=== PATIENT | female | born 1945 | race Caucasian/White ===

== ENCOUNTER 2019-08-21 13:22 | Outpatient (CLI) | payer MEDICARE, SELFPAY ==
--- NOTE | 2019-08-21 13:30 | US_ITS ---
WS: [id number] RENAL ULTRASOUND HISTORY: HEMATURIA COMPARISON: None available. TECHNIQUE: 2-D and color Doppler imaging of the kidney submitted. Right kidney: 9.1 cm x 4.4 cm x 3.6 cm. Normal echogenicity with no hydronephrosis or mass. Left kidney: 9.1 cm x 3.8 cm x 3.4 cm. Normal size and echogenicity. There is a hypoechoic soft tissue mass measuring 2.0 x 2.0 x 2.0 cm exo phytic and inseparable from the upper pole of the LEFT kidney. No significant increased vascularity. Aorta: Normal. Urinary Bladder: Normally distended bladder. Diffuse wall thickening is due to underdistention. US/US renal BI* [id number] IMPRESSION: 1. Exophytic solid mass inseparable from upper pole LEFT kidney measures 2.0 c m. Recommend follow-up renal mass CT protocol for further evaluation. 2. No hydronephrosis.
== END 2019-08-21 13:23 | disposition home or self-care (01) ==
LOC: RAD 13:28
PROVIDERS: PCP Nurse Practitioner Family; Visit Provider Family Medicine
DX: R31.9 Hematuria, unspecified (principal); D64.9 Anemia, unspecified; N28.89 Other specified disorders of kidney and ureter
CPT/HCPCS: 76770

== ENCOUNTER 2019-09-24 11:24 | Outpatient (CLI) | payer MEDICARE, SELFPAY ==
--- NOTE | 2019-09-24 | CT_ITS ---
WS: [id number] CT scan of the abdomen and pelvis with Oral and with and without IV contrast. Additional two-dimensio nal coronal and sagittal reconstruction was performed. 09/24/2019 Clinical Data: RENAL MASS, HEMATURIA Comparison: Renal ultrasound, 08/21/2019. DLP: 2483.[address] scans at [facility] use at least one of these dose optimization techniques: automat ed exposure control; mA and/or kV adjustment per patient size (includes targeted exams where dose is matched to clinical indication); or iterative reconstruction. Findings: The lower lungs show no nodules, masses or effusions. The liver, gallbladder, adrenal glands and pancreas are normal. There is a splenule which is adjacent to the superior pole of the left kidney. The spleen is enlarged at 15.0 cm. The kidneys show equal bilateral contrast excretion with a small posterior cortical cyst of the right kidney. No renal masses are present. The density adjacent to the superior pole of the left kidney is a medial lobe of the spleen.. The abdominal aorta is normal in size. No appendicitis or diverticulitis is seen. Oral contrast is in the stomach, small bowel and colon, a nd there is no bowel dilatation. The bladder is unremarkable. No inguinal hernia is seen. The bones of the lower thorax, lumbar spine, pelvis, and hips are normal. CT/CT abdomen pelvis wo/w [id number] Impression: 1. Negative for left renal mass. 2. Enlarged spleen with medial lobe of the spleen superior to the left kidney. 3. Splenule which is adjacent to the lateral aspect of the left kidney.
[2019-09-24 13:40] LABS: Blood Urea Nitrogen 21 mg/dL (8-23)
[2019-09-24] MEDS: iodixanol 320 mg/mL 100mL Btl IV (13:46)
[2019-09-24] MEDS: iohexol 300 mg/mL 50 mL Btl PO (13:46)
== END 2019-09-24 11:25 | disposition home or self-care (01) ==
PROVIDERS: PCP Nurse Practitioner Family; Visit Provider Nurse Practitioner Family
DX: N28.9 Disorder of kidney and ureter, unspecified (principal); R31.9 Hematuria, unspecified; R16.1 Splenomegaly, not elsewhere classified
CPT/HCPCS: 74178; 82565; 84520; Q9967

== ENCOUNTER 2019-10-29 14:52 | Outpatient (CLI) | payer MEDICARE, SELFPAY ==
--- NOTE | 2019-10-29 15:00 | US_ITS ---
WS: [id number] TRANSABDOMINAL PELVIC AND TRANSVAGINAL PELVIC ULTRASOUND HISTORY: HYPERPLASIA endometrial COMPARISON: CT 09/24/2019. Uterus: 5.5 cm x 4.6 cm x 3.0 cm. The uterus is poorly visualized on both transabdominal and transvag inal imaging. Shadowing calcifications towards the fundus. Endometrium: Endometrium is poorly visualized. On the recent CT the endometrium is thick measuring 2. 5 cm. Neither ovary is identified. No adnexal masses or fluid. US/US pelvic with transvaginal IMPRESSION: 1. Extremely limited evaluation of the uterus and adnexa. 2. Cannot identify the endometrium with certainty. 3. On a recent CT of the pelvis the endometrium was thickened. Suspect endomet rial hyperplasia, neoplasm or polyps. Recommend direct hysteroscopy.
== END 2019-10-29 14:53 | disposition home or self-care (01) ==
PROVIDERS: PCP Nurse Practitioner Family; Visit Provider Nurse Practitioner Family
DX: N85.00 Endometrial hyperplasia, unspecified (principal)
CPT/HCPCS: 76830; 76856

== ENCOUNTER 2020-05-25 13:03 | Outpatient (CLI) | payer MEDICARE, SELFPAY ==
[2020-05-25] VITALS (12 sets, daily range): BP systolic 129–169; BP diastolic 57–74; PULSE 85–106; RESP 16–20; TEMP 36.4–37.3; O2SAT 98–100; BMI 20.2
--- NOTE | 2020-05-25 13:45 | ED_ITS ---
HPI - General Adult General: Chief complaint: General Medical Stated complaint: PCP EMILY HERNANDEZ SENT FOR BLOOD TRANSFUSION Time Seen by Provider: 05/25/20 13:24 History of Present Illness: HPI narrative: 75-year-old female presents to the emergency room per her primary care PA. Patient was seen yesterday and found to have hemoglobin of 6 lab was referred back by her primary care for transfusion. Patient is splenomegaly but has not had any work-up of this in the past. She has not previously required transfusion. She has not noted any hematochezia melena hematemesis coffee-ground emesis. Onset (ago): unknown Severity: mild Relieving factors: none Exacerbating factors: none Associated symptoms: Deny chest pain, confusion, cough, diaphoresis, decreased appetite, dyspnea, fevers/chills, headache(s), malaise, nausea, rash, palpitations, seizures, short of breath, syncope, vomiting or weakness Treatments prior to arrival: none Review of Systems Const: Denies: malaise or diaphoresis ENMT: Denies: throat pain, ear or mastoid pain, nasal discharge or nasal congestion Card: Denies: chest pain, palpitations or syncope Resp: Denies: dyspnea GI: Denies: nausea : Denies: flank pain, difficulty voiding, dysuria, urinary frequency or urinary urgency Skin/Breast: Denies: rash Neuro: Denies: headache(s) or confusion PFS ED PFSH: Medical History (Updated 05/25/20 @ 15:10 by Jermaine Jacobsen DO) Anemia History of recurrent urinary tract infection with hematuria Splenomegaly Family History (Updated 05/25/20 @ 15:05 by Leandra Vázquez MD) Denies family history of Clotting disorder Bleeding disorder Social History (Updated 05/25/20 @ 15:05 by Leandra Vázquez MD) Smoking and tobacco status: never smoked Physical Exam Const: COMMON NORMALS: no acute distress GENERAL APPEARANCE: cooperative and comfortable ORIENTATION/CONSCIOUSNESS: Yes awake, Yes oriented to person, Yes oriented to place and Yes oriented to time HENMT: COMMON NORMALS: normocephalic, atraumatic and hearing grossly normal bilaterally HEAD & SCALP: normocephalic and atraumatic Neck/C-Spine: COMMON NORMALS: no JVD Resp: COMMON NORMALS: normal respiratory effort, No retractions, No use of accessory muscles and clear to auscultation bilaterally AUSCULTATION: clear to auscultation bilaterally Cardio: COMMON NORMALS: no JVD, regular rate, regular rhythm and No murmurs present (Cardio) RATE: regular rate RHYTHM: regular rhythm GI: COMMON NORMALS: Soft to palpation and No hepatosplenomegaly present A USCULTATION: Yes normoactive bowel sounds PALPATION: Yes Soft to palpation, No Tenderness to palpation present (GI), No Guarding due to palpation present (GI) and Yes No hepatosplenomegaly present Extremity: COMMON NORMALS: normal to inspection, capillary refill normal, no clubbing, cyanosis or edema, no calf tenderness and no pedal edema Neuro: SENSORIUM/ORIENTATION: Yes oriented to person, Yes oriented to place and Yes oriented to time Skin: COMMON NORMALS: no rashes or lesions noted GENERAL SKIN EXAM: no rashes or lesions noted Course Vital Signs: Vital signs: Vital Signs Temperature 98.2 F 05/25/20 13:16 Pulse Rate 106 H 05/25/20 13:16 Respiratory Rate 18 05/25/20 13:16 Blood Pressure 169/72 05/25/20 13:16 Pulse Oximetry 98 05/25/20 13:16 MDM - General Adult MDM Narrative: Medical decision making narrative: Admit outpatient in bed for 2 units to be transfused discussed with Dr. Anthony she will monitor the patient on the floor. Lab Data: Attestation: I reviewed the patient's lab results. Labs: Lab Results 05/25/20 05/25/20 Range/Units 14:21 14:21 WBC 10.0 (4.0-10.0) 10^3/ uL RBC 2.67 L (4.1-5.3) 10^6/u L Hgb 6.2 L* (11.5-15.3) g/dL Hct 21.3 L (37.0-47.0) % MCV 79.8 L (81-99) fL MCH 23.2 L (28.0-34.0) pg MCHC 29.1 L (30.0-36.0) g/dL RDW 16.9 H (12.1-15.1) % Plt Count 152 (130-400) 10^3/c mm MPV 10.2 (7.4-10.4) fL Neut % (Auto) 20.5 % Lymph % (Auto) 75.6 % [place] % (Auto) 3.5 % Eos % (Auto) 0.2 % Baso % (Auto) 0.1 % Neut # (Auto) 2.05 (1.8-7.7) 10^3/u L Lymph # (Auto) 7.6 H (0.8-4.8) 10^3/u L [place] # (Auto) 0.4 (0.2-0.9) 10^3/u L Eos # (Auto) 0.0 (0.0-0.8) 10^3/u L Baso # (Auto) 0.0 (0.0-0.1) 10^3/u L Nucleated RBC % (a uto) 0 % Nucleated RBCs # 0.0 /100WBC Sodium 138 (136-145) mmol/L Potassium 4.1 (3.5-5.1) mmol/L Chloride 103 (98-107) mmol/L Carbon Dioxide 20 L (22-29) mmol/L Anion Gap 19.1 H (5-19) BUN 26 H (8-23) mg/dL Creatinine 1.0 H (0.5-0.9) mg/dL GFR Calculation Not Reportable Glucose 86 (65-115) mg/dL Calculated Osmolal ity 290 (285-295) mOsm/k g Calcium 9.2 (8.5-10.5) mg/dL Total Bilirubin 0.8 (0.15-1.2) mg/dL AST 13 (0-32) U/L ALT 6 (0-33) U/L Alkaline Phosphata se 98 (35-105) IU/L Total Protein 7.3 (6.6-8.7) g/dL Albumin 4.5 (3.5-5.2) g/dL Globulin 2.8 (1.3-4.6) g/dL Discharge Plan Discharge Patient Disposition: Placed in Observation Clinical Impression: Microcytic anemia, Splenomegaly Condition: Stable Prescriptions: No Action ferrous sulfate 27 mg iron Tablet 27 mg PO DAILY RF: 0 Referrals: Emily Hernandez PHOTOGRAPHER SCIENTIFIC [Primary Care Provider] - Patient Instructions: Opioid Safety Coding Level of Care Code ED Division Director for [employer] Fwd Exam Comprehensive
[2020-05-25 14:32] LABS: Basophils % 0.1 %; Eosinophils % 0.2 %; Hematocrit 21.3 % (37.0-47.0); Lymphocytes # 7.6 10^3/uL (0.8-4.8); Lymphocytes % 75.6 %; Mean Corpuscular HGB Conc 29.1 g/dL (30.0-36.0); Mean Corpuscular Hemoglobin 23.2 pg (28.0-34.0); Mean Corpuscular Volume 79.8 fL (81-99); Mean Platelet Volume 10.2 fL (7.4-10.4); Monocytes # 0.4 10^3/uL (0.2-0.9); Monocytes % 3.5 %; Neutrophils # 2.05 10^3/uL (1.8-7.7); Neutrophils % 20.5 %; Nucleated Red Blood Cells % 0 %; Platelet Count 152 10^3/cmm (130-400); Red Blood Count 2.67 10^6/uL (4.1-5.3); Red Cell Distribution Width 16.9 % (12.1-15.1)
[2020-05-25 14:55] LABS: Hemoglobin 6.2 g/dL (11.5-15.3)
[2020-05-25 14:56] LABS: Alanine Aminotransferase 6 U/L (0-33); Albumin Level 4.5 g/dL (3.5-5.2); Alkaline Phosphatase 98 IU/L (35-105); Anion Gap 19.1 (5-19); Aspartate Amino Transferase 13 U/L (0-32); Blood Urea Nitrogen 26 mg/dL (8-23); Calcium 9.2 mg/dL (8.5-10.5); Carbon Dioxide 20 mmol/L (22-29); Chloride 103 mmol/L (98-107); Globulin 2.8 g/dL (1.3-4.6); Glucose 86 mg/dL (65-115); Osmolality Calculated 290 mOsm/kg (285-295); Potassium 4.1 mmol/L (3.5-5.1); Sodium 138 mmol/L (136-145); Total Bilirubin 0.8 mg/dL (0.15-1.2); Total Protein 7.3 g/dL (6.6-8.7)
[2020-05-25 15:36] LABS: Add Urine Microscopic? YES; Bilirubin Urine Neg (Negative); Blood Urine 3+ (Negative); Glucose Urine UA Norm (Normal); Ketones Urine 1+ (Negative); Leukocyte Esterase Urine Negative (Negative); Nitrate Urine Negative (Negative); Protein Urine 1+ (Negative); Urine Appearance Clear (CLEAR); Urine Color Yellow (Yellow); Urobilinogen Urine Norm (Negative); pH Urine 5 (5-7)
[2020-05-25 15:39] LABS: Add Urine Culture? No; Bacteria Urine 1+ /hpf; Squamous Epithelial Cell Urine 0-4 /hpf (0-5)
--- NOTE | 2020-05-25 19:13 | PC.NURSE ---
admitted in to room 111-2 from er at 1700.to receive 2 units of prbc's..and then discharge to home tonight.pt is alert and oriented x 4.denies pain.1st unit pc's began at 1720 at rate of 50 cc/hr.with pt for 15 min.no s/sxs transfusion reaction noted.rate increased to 125 cc/hr at 1745.pt instructed in s/sxs transfusion reaction and fluid overload...and to notify staff if s/sxs occur.pt verb understanding of instructions
--- NOTE | 2020-05-25 23:20 | PC.NURSE ---
Patient received 2 units PRBCs as prescribed. No adverse reactions to transfusion. IV removed, pressure dressing applied. Education provided to patient over transfusion reactions. Patient verbalized understanding of all teaching.
== END 2020-05-25 23:18 | disposition home or self-care (01) ==
LOC: ER 15:10 → CSU 05-26 07:49 → OPCSU 05-31 08:39
PROVIDERS: Emergency Provider Family Medicine; PCP Nurse Practitioner Family; Visit Provider Hospitalist
DX: D64.9 Anemia, unspecified (principal); R16.1 Splenomegaly, not elsewhere classified
CPT/HCPCS: 36430; 80053; 81001; 85025; 86850; 86900; 86920; P9016

== ENCOUNTER 2020-06-02 09:59 | Outpatient (CLI) | payer MEDICARE, SELFPAY ==
--- NOTE | 2020-06-02 10:24 | CT_ITS ---
WS: [id number] CT CHEST, ABDOMEN AND PELVIS WITHOUT IV CONTRAST. HISTORY: ABDOMINAL PAIN, SPLENOMEGALY, ANEMIA TECHNIQUE: Contiguous 5 mm axial imaging performed through the chest, abdomen and pelvis without IV c ontrast, oral contrast has been provided. Coronal and sagittal reformats chest. Coronal and sagittal reformats through the abdomen and pelvis. All CT scans at [facility] use at least one of these dose optimization techniques: automated exposure control; mA and/or kV adjustment per patient s ize (includes targeted exams where dose is matched to clinical indication); or iterative reconstructi on. CONTRAST: None DLP: 1482.81 mGycm COMPARISON: 09/24/[address]: Mild pulmonary hyperexpansion. No pneumonia or nodules. Linear scar at the lingula no peric ardial or pleural effusions. Heart size is normal. Small subcentimeter lymph nodes at the thoracic in let. Without IV contrast sensitivity is limited. No enlarged lymph nodes are identified. There is a l arge hiatal hernia containing oral contrast. Degenerative changes in the thoracic spine but no osteob lastic or lytic bone disease. Abdomen CT: Normal size liver. Hypodense nodule measuring 1 cm in the superior RIGHT lobe of the live r is stable. No bile duct dilatation. Gallbladder is slightly contracted. Marked enlargement of the s pleen extending over length of 17.3 cm in length. There is mass effect upon the adjacent soft tissue structures and kidney. Normal pancreas and adrenal glands. Atherosclerotic changes within the aorta. Kidneys are normal size with no obstruction. Enlarged lymph nodes. There are several small mesenteric and RIGHT lower quadrant lymph nodes. There is no ascites. No GI tract obstruction. Numerous diverticula in the sigmoid colon without acute inflammation. The ap pendix is normal. Pelvic CT: Uterus is slightly enlarged with the fundus being bulbous suggesting fibroid involvement. There are additional calcifications which are very coarse in the uterus also consistent with fibroids . No pelvic mass or free fluid. Urinary bladder is moderately well distended. RIGHT inguinal hernia contains a loop of small bowel without obstruction. Mild increase in the lumbar lordosis. No destructive bone lesions. CT/CT chest abd pel wo con IMPRESSION: 1. Progressive enlargement of the spleen since 09/24/2019. Spleen now measures 17.3 cm in length. Correlate for possible lymphoma. 2. There are several small mediastinal, hilar, abdominal lymph nodes. These ar e a less than a centimeter but slightly increased in number. 3. No pulmonary mass or nodule. 4. Normal appendix. 5. RIGHT inguinal hernia contains a loop of small bowel with no obstruction a t this time. 6. Large hiatal hernia.
[2020-06-02] MEDS: barium sulfate 450 mL Oral Susp PO (10:39)
== END 2020-06-02 10:00 | disposition home or self-care (01) ==
PROVIDERS: PCP Nurse Practitioner Family; Visit Provider Nurse Practitioner Family
DX: R10.9 Unspecified abdominal pain (principal); R16.1 Splenomegaly, not elsewhere classified; D64.9 Anemia, unspecified; K44.9 Diaphragmatic hernia without obstruction or gangrene; K40.90 Unilateral inguinal hernia, without obstruction or gangrene, not specified as recurrent
CPT/HCPCS: 71250; 74176

== ENCOUNTER 2020-06-14 10:15 | Outpatient (CLI) | payer MEDICARE, SELFPAY ==
[2020-06-14 11:04] LABS: Eosinophils # 0.1 10^3/uL (0.0-0.8); Eosinophils % 0.7 %; Hematocrit 28.6 % (37.0-47.0); Hemoglobin 8.6 g/dL (11.5-15.3); Lymphocytes # 5.8 10^3/uL (0.8-4.8); Lymphocytes % 70.6 %; Mean Corpuscular HGB Conc 30.1 g/dL (30.0-36.0); Mean Corpuscular Hemoglobin 25.1 pg (28.0-34.0); Mean Corpuscular Volume 83.6 fL (81-99); Mean Platelet Volume 10.6 fL (7.4-10.4); Monocytes # 0.4 10^3/uL (0.2-0.9); Monocytes % 5.2 %; Neutrophils # 1.89 10^3/uL (1.8-7.7); Neutrophils % 23.3 %; Nucleated Red Blood Cells % 0 %; Platelet Count 152 10^3/cmm (130-400); Red Blood Count 3.42 10^6/uL (4.1-5.3); Red Cell Distribution Width 17.2 % (12.1-15.1); White Blood Count 8.1 10^3/uL (4.0-10.0)
[2020-06-14 11:40] LABS: Slide Review Slide Review Perform
[2020-06-14 13:51] LABS: Ferritin 360 ng/mL (15-150); Lactate Dehydrogenase 216 U/L (135-214)
[2020-06-14 14:08] LABS: Vitamin B12 346 pg/mL (232-1245)
--- NOTE | 2020-06-14 18:52 | ONC CON_ITS ---
Dr. Jha New Patient Note Patient: Prabha De Unit #: [id number]: [id number] Dicatated By: Alex Jha M.D.Date of Visit: June 14, 2020 Onc MED New Patient/Consult Referring Physician: Emily Hernandez History of Present Illness: Ms. Prabha De, is a 75-year-old female with history of mild anemia since 2018, as per patient in the beginning her hemoglobin would stay between 11 to 12 g but then gradually start decreasing and used to respond to oral iron which she has been taking for the last 2 years, despite of that her hemoglobin continue to drop slowly but gradually until about 2 weeks ago when she started feeling weak and tired and lightheaded and her CBC done showed hemoglobin around 6.5 g, patient was given 2 units of packed RBCs with that her hemoglobin improved to 8.5 g and she continue to take oral iron but now started having nausea and indigestion and abdominal pain, as per patient she had Hemoccult stool done which showed no evidence of bleeding and she had a colonoscopy done [address] Thapa and she was told it was unremarkable but never had EGD done before. As per patient last year she felt fullness in her left upper abdomen for which she underwent CT scan of abdomen on September 24, 2019 which showed splenomegaly and her repeat CT scan of chest abdomen pelvis done on June 02, 2020 showed progressive enlargement of spleen since September 24, 2019 now measures 17.3 cm. There are several small mediastinal hilar abdominal lymph nodes but these are less than centimeter and slightly increased in number. No pulmonary mass or nodule seen. Right inguinal hernia containing loop of small bowel with no obstruction at this time. Large hiatal hernia. Patient is also complaining of drenching night sweating for the last many months now progressive and also complaining of over 10 pound weight loss since last spring when she used to weigh around 124 pounds now down to 214, denies any recurrent fevers. Patient denies any peripheral lymphadenopathy, denies any jaundice, denies any hematuria, denies any melena or hematochezia, denies any hemoptysis or hematemesis, appetite is reasonable Past Medical History: Ms. De's medical history consists of hyperlipidemia and osteopenia. Past Surgical History: Ms. De's surgical/procedural history consists of COVID 19 2ND in 2020. Medications: Acetaminophen-Codeine 1 Tablet (of 300-30 mg) Oral q 6 hours PRN, Atorvastatin Calcium 1 Tablet (of 40 mg) Oral daily, Atorvastatin Calcium 1 Tablet (of 20 mg) Oral daily, [facility] Iron 1 Tablet (of 325 (65 fe) mg) Oral b.i.d. Allergies: Iodine Social History: Ms. De is . Ms. De has never smoked. She has no history of drinking. Family History: Ms. De's mother at age 95. Ms. De's father at age 64: myocardial infarction. Ms. De has 1 sister who is : breast cancer. Review Of Symptoms: Review of Systems is not available for this patient. Vital Signs: Performed on June 14, 2020 11:34: 3, 0, 21.07, 1.51 sq.m, 62 in, 98 %, 93 /min, 18 /min, 157/75 mm(hg) (HIGH), 98.0 F (LOW), and 115.2 lbs (HIGH). Performance Status: 1 - No physically strenuous activity, but ambulatory and able to carry out light or sedentary work (e.g. office work, light house work). (ECOG) Physical Examination: ENMT - No mouth sores, no thrush, no jaundice, no cervical or axillary lymphadenopathy, Respiratory - Lungs are clear to auscultation, Cardiovascular - Regular rate and rhythm of heart, Abdomen - Soft, bowel sounds present, splenomegaly, nontender, Extremities - No visible edema. Lab/Imaging: Most recent lab results are not available for this patient. Impression: , Iron deficiency anemia status post 2 units of packed RBC done in May 2020 for hemoglobin 6.5 g and anemia work-up done on May 24, 2020 shows iron saturation 6%, iron 17, TIBC 292, folate 21.4, ferritin level is not available, etiology could be iron malabsorption or chronic/intermittent GI blood loss, probably from upper GI tract or small bowel as colonoscopy done 3 years ago, as per patient it was unremarkable Splenomegaly, with subcentimeter central lymphadenopathy, etiology unclear could be due to lymphoproliferative disorder Left upper abdominal fullness/pain probably due to splenomegaly History of hyperlipidemia, osteopenia Plan: Discussed with patient regarding her labs white blood count 8.1 hemoglobin 8.6 hematocrit 28.6 platelets 152,000 MCV 83.6 and differential shows lymphocytes 70.6% and absolute lymphocyte count [address] scan of chest abdomen pelvis which shows splenomegaly with subcentimeter extensive central lymphadenopathy Clinically, patient is having B symptoms like drenching night sweating and weight loss but no recurrent fever and her CBC done today shows lymphocytosis and CT scan of chest abdomen pelvis done on June 10, 2020 shows subcentimeter central lymphadenopathy and progressive splenomegaly, it appears patient has lymphoproliferative disorder like CLL or small lymphocytic lymphoma, at this point we will proceed with whole blood flow cytometry and if it confirms CLL or small lymphocytic lymphoma, because of symptomatic splenomegaly, will consider treatment immediately If all blood flow cytometry shows no abnormality then will consider bone marrow evaluation as other abnormality patient has a splenomegaly and subcentimeter central lymphadenopathy and no peripheral lymphadenopathy on exam As far as iron deficiency anemia is concerned, patient had a colonoscopy done 3 years ago, as per patient it was unremarkable, will obtain records from Dr. Jacobsen's office and patient is on oral iron for the last 2 or more years and now developing GI intolerance, moreover with progressive anemia while on oral iron and iron studies shows iron deficiency, she may have iron malabsorption or chronic/intermittent upper GI bleeding so we will consider EGD and if normal, capsule endoscopy to rule out small bowel AVMs causing chronic bleeding thus iron deficiency anemia. Because of now patient is developing oral iron intolerance, will consider discontinue oral iron and consider Injectafer 750 mg IV weekly x2 and then follow-up with iron studies and CBC. Patient will return to clinic in 1 week with CBC CMP and to discuss whole blood flow cytometry report, and as mentioned above if it confirms CLL or lymphoproliferative disorder, will consider treatment as patient is symptomatic due to splenomegaly on the other hand if is normal, will consider bone marrow evaluation. Signed By: Alex Jha M.D. <<Signature on File>>
[2020-07-07 09:20] LABS: Miscellaneous Test See Scanned Lab Rpt
== END 2020-06-14 10:16 | disposition home or self-care (01) ==
PROVIDERS: PCP Nurse Practitioner Family; Visit Provider Internal Medicine Hematology & Oncology
DX: D50.9 Iron deficiency anemia, unspecified (principal); D51.9 Vitamin B12 deficiency anemia, unspecified; R16.1 Splenomegaly, not elsewhere classified; E78.5 Hyperlipidemia, unspecified; M85.80 Other specified disorders of bone density and structure, unspecified site; Z79.899 Other long term (current) drug therapy
CPT/HCPCS: 36415; 82607; 82728; 83615; 85025; 85045; 88184; 88185; 99204

== ENCOUNTER → 2020-07-08 10:39 | Outpatient (BNVA) | payer MEDICARE, SELFPAY | PROVIDERS: PCP Nurse Practitioner Family; Visit Provider Internal Medicine Hematology & Oncology | DX: Z01.812 Encounter for preprocedural laboratory examination (principal); Z20.822 Contact with and (suspected) exposure to COVID-19 | CPT/HCPCS: 87635 ==

== ENCOUNTER 2020-07-15 10:59 | Outpatient (CLI) | payer MEDICARE, SELFPAY ==
[2020-07-08 12:18] VITALS: BMI 20.2
[2020-07-15 11:32] VITALS: BP 161/72; PULSE 89; RESP 18; TEMP 36.1; O2SAT 99
[2020-07-15] MEDS: sodium chloride 0.9% 1,000 ML 30 ML IV (11:51)
[2020-07-15 12:13] LABS: Basophils % 0.2 %; Eosinophils % 0.6 %; Hematocrit 22.9 % (37.0-47.0); Lymphocytes # 4.6 10^3/uL (0.8-4.8); Lymphocytes % 71.2 %; Mean Corpuscular HGB Conc 30.6 g/dL (30.0-36.0); Mean Corpuscular Hemoglobin 25.5 pg (28.0-34.0); Mean Corpuscular Volume 83.6 fL (81-99); Mean Platelet Volume 10.9 fL (7.4-10.4); Monocytes # 0.3 10^3/uL (0.2-0.9); Monocytes % 4.9 %; Neutrophils # 1.47 10^3/uL (1.8-7.7); Neutrophils % 22.9 %; Nucleated Red Blood Cells % 0 %; Platelet Count 143 10^3/cmm (130-400); Red Blood Count 2.74 10^6/uL (4.1-5.3); Red Cell Distribution Width 16.2 % (12.1-15.1); White Blood Count 6.4 10^3/uL (4.0-10.0)
[2020-07-15 13:06] VITALS: BP 106/51; PULSE 85; RESP 16; TEMP 36.8; O2SAT 98
--- NOTE | 2020-07-15 13:14 | P.PCN_ITS ---
Bone Marrow Biopsy Bone Marrow Biopsy: I was consulted by [] office regarding bone marrow biopsy on [Prabha De]. Briefly, the patient is a [75] year old [female] with [anemia/splenomegaly/intra-abdominal lymphadenopathy. In the Outpatient Services Department, with nursing staff and laboratory technologists in attendance, the procedure was discussed with the patient. Appropriate consent form had been signed. Appropriate alternatives, benefits and risks of procedure were discussed with the patient and she was pre- operatively assessed with a history and physical by myself and cleared for the biopsy procedure. The patient did request IV sedation and that was provided by the Anesthesia Department. Under aseptic condition right posterior iliac area was cleaned and prepped, local anesthesia was given, about 15 cc of bone marrow aspirate and core biopsy was obtained, patient tolerated procedure well, hemo stasis was obtained and specimen was sent for routine histopathology, flow cytometry/cytogenetic and FISH for lymphoproliferative disorder. Postprocedure nurse instructions were given. Thank you for allowing me to participate in this patient's care and diagnosis. Coding Level of Care Code Acute Stripping Shovel Operator for Jaylon Belle
[2020-07-15 13:25] VITALS: BP 112/54; PULSE 80; RESP 18; TEMP 36.9; O2SAT 98
[2020-07-15 13:35] LABS: Slide Review Slide Review Perform
--- NOTE | 2020-07-15 14:58 | ANE.PACU2 ---
Inpatient post-anesthesia follow up: Airway intact: Yes Vital signs: Temperature 98.4 F Pulse Rate 80 Respiratory Rate 18 Blood Pressure 112/54 Pulse Oximetry 98 Oxygen Delivery Me thod Room Air Oxygen Flow Rate Fraction of Inspir ed Oxygen Hydration adequate: Yes Nausea and vomiting: No Pain level: 1 Mental status: Baseline
[2020-07-19 06:20] LABS: Miscellaneous Test See Scanned Lab Rpt
[2020-08-17 11:45] LABS: Miscellaneous Test See Scanned Lab Rpt
== END 2020-07-15 13:41 | disposition home or self-care (01) ==
PROVIDERS: PCP Nurse Practitioner Family; Visit Provider Internal Medicine Hematology & Oncology
PROC: 07DT3ZX Extraction of Bone Marrow, Percutaneous Approach, Diagnostic (ICD-10-PCS; CPT 38222; principal; 2020-07-15 12:30)
DX: D64.9 Anemia, unspecified (principal); R16.1 Splenomegaly, not elsewhere classified; R59.1 Generalized enlarged lymph nodes
CPT/HCPCS: 38222; 36415; 85025; 88184; 88185; 88237; 88264; 88305; 88367; 88374; 96360; 96361; J2704; J7030

== ENCOUNTER 2020-08-06 09:39 | Outpatient (CLI) | payer MEDICARE, SELFPAY ==
[2020-08-06] VITALS (9 sets, daily range): BP systolic 113–141; BP diastolic 46–71; PULSE 83–94; RESP 16–18; TEMP 36.1–37; O2SAT 96–99
[2020-08-06 09:56] LABS: Basophils % 0.1 %; Eosinophils % 0.5 %; Hematocrit 23.1 % (37.0-47.0); Hemoglobin 6.8 g/dL (11.5-15.3); Lymphocytes # 5.4 10^3/uL (0.8-4.8); Lymphocytes % 72.3 %; Mean Corpuscular HGB Conc 29.4 g/dL (30.0-36.0); Mean Corpuscular Hemoglobin 24.3 pg (28.0-34.0); Mean Corpuscular Volume 82.5 fL (81-99); Mean Platelet Volume 9.7 fL (7.4-10.4); Monocytes # 0.4 10^3/uL (0.2-0.9); Monocytes % 5.8 %; Neutrophils # 1.58 10^3/uL (1.8-7.7); Neutrophils % 21.2 %; Nucleated Red Blood Cells % 0 %; Platelet Count 140 10^3/cmm (130-400); Red Cell Distribution Width 15.4 % (12.1-15.1); White Blood Count 7.5 10^3/uL (4.0-10.0)
[2020-08-06 10:30] LABS: Slide Review Slide Review Perform
[2020-08-06 12:13] LABS: Immunoglobulin IGG 374 mg/dL (700-1600); Immunoglobulin IGM 617 mg/dL (40-230)
[2020-08-06 12:29] LABS: Immunoglobulin IGA 28 mg/dL (70-400)
[2020-08-06] MEDS: sodium chloride 0.9% (100 ml) 200 ML 10 ML (13:23)
--- NOTE | 2020-08-06 13:42 | ONC FU_ITS ---
Dr. Jha follow up note Patient: Prabha De Unit #: [id number]: 1945 Dicatated By: Alex Jha M.D.Date of Visit:Aug 06, 2020 Onc Med Follow-up/Prog Note History of Present Illness: Ms. Prabha De, is a 75-year-old female with history of mild anemia since 2018, as per patient in the beginning her hemoglobin would stay between 11 to 12 g but then gradually start decreasing and used to respond to oral iron which she has been taking for the last 2 years, despite of that her hemoglobin continue to drop slowly but gradually until about 2 weeks ago when she started feeling weak and tired and lightheaded and her CBC done showed hemoglobin around 6.5 g, patient was given 2 units of packed RBCs with that her hemoglobin improved to 8.5 g and she continue to take oral iron but now started having nausea and indigestion and abdominal pain, as per patient she had Hemoccult stool done which showed no evidence of bleeding and she had a colonoscopy done [address] Thapa and she was told it was unremarkable but never had EGD done before. As per patient last year she felt fullness in her left upper abdomen for which she underwent CT scan of abdomen on September 24, 2019 which showed splenomegaly and her repeat CT scan of chest abdomen pelvis done on June 02, 2020 showed progressive enlargement of spleen since September 24, 2019 now measures 17.3 cm. There are several small mediastinal hilar abdominal lymph nodes but these are less than centimeter and slightly increased in number. No pulmonary mass or nodule seen. Right inguinal hernia containing loop of small bowel with no obstruction at this time. Large hiatal hernia. Patient is also complaining of drenching night sweating for the last many months now progressive and also complaining of over 10 pound weight loss since last spring when she used to weigh around 124 pounds now down to 214, denies any recurrent fevers. 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 No overt dyspoietic or megaloblastic changes seen. No circulating blast cells identified. Severe hypochromic normocytic anemia., B-cell population is negative for CD5, CD10 as well as hairy cell markers, so nonspecific phenotypic features but also appears to be a component of increased plasma cells and possibly plasmacytoid lymphocytes. 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 And differential also include involvement by marginal zone lymphoma with plasmacytic differentiation versus lymphoplasmacytic lymphoma., Cytogenetic positive for deletion of 6 q. which is observed and chronic lymphocytic leukemia and also an lymphoplasmacytic lymphoma Molecular analysis for MYD 88 mutation, was recommended and has been ordered. Also ordered SPEP/immunofixation/quantitative immunoglobulins/serum light chain assay Came for follow-up, complaining of generalized weakness and fatigue, no melena or hematochezia, no nausea or vomiting but persistent off-and-on night sweats, also complaining of left abdomen fullness/discomfort, think her spleen is getting bigger. No peripheral lymphadenopathy. Medications: Acetaminophen-Codeine 1 Tablet (of 300-30 mg) Oral q 6 hours PRN, Atorvastatin Calcium 1 Tablet (of 40 mg) Oral daily, Atorvastatin Calcium 1 Tablet (of 20 mg) Oral daily, [facility] Iron 1 Tablet (of 325 (65 fe) mg) Oral b.i.d. Allergies: Iodine Review of Systems: Review of Systems is not available for this patient. Vital Signs: Performed on Aug 06, 2020 09:57 Height - 62.00 in Weight - 110 lbs (LOW) BSA - 1.48 sq.m BMI - 20.12 Temperature - 97.8 F (LOW) Pulse - 97 /min Respiration - 18 /min BP - 146/72 mm(hg) (HIGH) O2 Sat - 100 % Pain - 4 Fatigue - 6 Performance Status: 2 - Ambulatory/capable of all self-care, unable to perform any work activities. Up and about more than 50% of waking hours. (ECOG) Physical Examination: ENMT - No mouth sores, no thrush, no jaundice, no cervical lymphadenopathy, Respiratory - Lungs are clear to auscultation, Cardiovascular - Regular rate and rhythm of heart, Abdomen - Soft, bowel sounds present, Spleen is palpable in the left abdomen/upper quadrant, Extremities - No visible edema or rash. Lab/Imaging: Most recent lab results are not available for this patient. Impression: ,Monotypic B-cell population detected per whole blood flow cytometry done on June 14, 2020, bone marrow evaluation done on July 15, 2020 showed 50 to 70% bone marrow involvement with small B cell neoplasm, no increased blast cells seen, no dyspoietic pharmacologic changes seen. No amyloid material identified., Also seen component of increased plasma cell and possibly plasmacytoid lymphocytes. 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 The differential includes involvement by marginal zone lymphoma with plasmacytic differentiation versus lymphoplasmacytic lymphoma Iron deficiency anemia status post 2 units of packed RBC done in May 2020 for hemoglobin 6.5 g and anemia work-up done on May 24, 2020 shows iron saturation 6%, iron 17, TIBC 292, folate 21.4, ferritin level is not available, etiology could be iron malabsorption or chronic/intermittent GI blood loss, probably from upper GI tract or small bowel as colonoscopy done 3 years ago, as per patient it was unremarkable Splenomegaly, with subcentimeter central lymphadenopathy, etiology unclear could be due to lymphoproliferative disorder Left upper abdominal fullness/pain probably due to splenomegaly History of hyperlipidemia, osteopenia Plan: Discussed with patient regarding her labs white blood count 7.5 hemoglobin 6.8 g hematocrit 23.1 platelets 140,000 ANC 1580 lymphocytes 5400 And bone marrow findings which confirmed extensive bone marrow involvement up to 50 to 70% also increased plasma cell component so concern is small B- cell lymphoma with plasmacytic differentiation or marginal zone lymphoma with plasmacytic differentiation versus lymphoplasmacytic lymphoma, further testing with MYD 88, SPEP/immunofixation/quantitative Immunoglobulin, Serum light chain assay was recommended which has been ordered, patient symptomatic because of progressive anemia which appears multifactorial including iron deficiency, patient on oral iron supplement tolerating well other possibility could be autoimmune although no evidence of hemolysis or extensive bone marrow involvement, at this point we will start her on prednisone 60 mg p.o. daily for 5 days while waiting for further testing as mentioned above to confirm the subtype of lymphoma e.g. lymphoplasmacytic lymphoma versus marginal zone lymphoma with plasmacytic differentiation versus CLL with plasmacytic differentiation. We will also start on allopurinol to prevent tumor lysis. Patient will start taking allopurinol today and then tomorrow she will start prednisone 60 mg p.o. daily for 5 days and also consider 2 units of packed RBC today for symptomatic anemia, patient return to clinic in 1 week, but that time will have her above-mentioned work-up reports back and then plan treatment, patient was advised in case she has any new symptoms, like jaundice, like nausea vomiting, or decreased urine output or restlessness she need to call us otherwise return to clinic in 1 week with CBC CMP Signed By: Alex Jha M.D. <<Signature on File>>
--- NOTE | 2020-08-06 15:02 | PC.NURSE ---
1500 Second unit PRBC's infusing without difficulty. No reaction noted. Pt to be transferred to OPS to complete transfusion. Report called to Laurie Feliz RN.
== END 2020-08-06 09:40 | disposition home or self-care (01) ==
PROVIDERS: PCP Nurse Practitioner Family; Visit Provider Internal Medicine Hematology & Oncology
DX: C83.08 Small cell B-cell lymphoma, lymph nodes of multiple sites (principal); D50.0 Iron deficiency anemia secondary to blood loss (chronic); R16.1 Splenomegaly, not elsewhere classified; E78.5 Hyperlipidemia, unspecified; M85.80 Other specified disorders of bone density and structure, unspecified site; Z79.899 Other long term (current) drug therapy
CPT/HCPCS: 36415; 36430; 82784; 85025; 86850; 86900; 86920; 99214; P9016

== ENCOUNTER 2020-08-11 13:54 | Outpatient (CLI) | payer MEDICARE, SELFPAY ==
[2020-08-11 14:47] LABS: Basophils % 0.1 %; Hematocrit 33.4 % (37.0-47.0); Hemoglobin 10.2 g/dL (11.5-15.3); Lymphocytes # 10.9 10^3/uL (0.8-4.8); Lymphocytes % 66.3 %; Mean Corpuscular HGB Conc 30.5 g/dL (30.0-36.0); Mean Corpuscular Hemoglobin 25.2 pg (28.0-34.0); Mean Corpuscular Volume 82.5 fL (81-99); Mean Platelet Volume 10.6 fL (7.4-10.4); Monocytes # 0.4 10^3/uL (0.2-0.9); Monocytes % 2.6 %; Neutrophils # 5.01 10^3/uL (1.8-7.7); Neutrophils % 30.5 %; Nucleated Red Blood Cells % 0 %; Platelet Count 194 10^3/cmm (130-400); Red Blood Count 4.05 10^6/uL (4.1-5.3); Red Cell Distribution Width 15.9 % (12.1-15.1); White Blood Count 16.4 10^3/uL (4.0-10.0)
[2020-08-11 15:16] LABS: Alanine Aminotransferase 9 U/L (0-33); Albumin Level 4.2 g/dL (3.5-5.2); Alkaline Phosphatase 78 IU/L (35-105); Anion Gap 18.6 (5-19); Aspartate Amino Transferase 13 U/L (0-32); Blood Urea Nitrogen 48 mg/dL (8-23); Calcium 9.1 mg/dL (8.5-10.5); Carbon Dioxide 20 mmol/L (22-29); Chloride 102 mmol/L (98-107); Globulin 2.6 g/dL (1.3-4.6); Glucose 175 mg/dL (65-115); Osmolality Calculated 299 mOsm/kg (285-295); Potassium 4.6 mmol/L (3.5-5.1); Sodium 136 mmol/L (136-145); Total Protein 6.8 g/dL (6.6-8.7)
[2020-08-11 15:47] LABS: Slide Review Slide Review Perform
[2020-08-12 06:46] LABS: PROTEIN, TOTAL 6.8 g/dL (6.1-8.1)
[2020-08-12 12:56] LABS: ABNORMAL PROTEIN BAND 1 0.3 g/dL (NONE DETECTED); ALBUMIN 3.9 g/dL (3.8-4.8); ALPHA 1 GLOBULIN 0.5 g/dL (0.2-0.3); BETA 1 GLOBULIN 0.4 g/dL (0.4-0.6); BETA 2 GLOBULIN 0.4 g/dL (0.2-0.5); GAMMA GLOBULIN 0.6 g/dL (0.8-1.7)
[2020-08-12 14:41] LABS: KAPPA LIGHT CHAIN, FREE, SERUM 7.5 mg/L (3.3-19.4); KAPPA/LAMBDA LIGHT CHAINS FREE 0.01 (0.26-1.65); LAMBDA LIGHT CHAIN, FREE, SERU 1416.4 mg/L (5.7-26.3)
[2020-08-27 11:15] LABS: Miscellaneous Test See Scanned Lab Rpt
== END 2020-08-11 13:55 | disposition home or self-care (01) ==
LOC: ONCMED 13:59
PROVIDERS: PCP Nurse Practitioner Family; Visit Provider Internal Medicine Hematology & Oncology
DX: D50.9 Iron deficiency anemia, unspecified (principal)
CPT/HCPCS: 36415; 80053; 80500; 81305; 83883; 84155; 84165; 85025; 88184; 88185

== ENCOUNTER 2020-08-17 11:21 | Outpatient (CLI) | payer MEDICARE, SELFPAY ==
--- NOTE | 2020-08-17 17:28 | ONC FU_ITS ---
Dr. Jah follow up note Patient: Prabha De Unit #: [id number]: 1945 Dicatated By: Alex Jha M.D.Date of Visit:Aug 17, 2020 Onc Med Follow-up/Prog Note History of Present Illness: Ms. Prabha De, is a 75-year-old female with history of mild anemia since 2018, as per patient in the beginning her hemoglobin would stay between 11 to 12 g but then gradually start decreasing and used to respond to oral iron which she has been taking for the last 2 years, despite of that her hemoglobin continue to drop slowly but gradually until about 2 weeks ago when she started feeling weak and tired and lightheaded and her CBC done showed hemoglobin around 6.5 g, patient was given 2 units of packed RBCs with that her hemoglobin improved to 8.5 g and she continue to take oral iron but now started having nausea and indigestion and abdominal pain, as per patient she had Hemoccult stool done which showed no evidence of bleeding and she had a colonoscopy done [address] Thapa and she was told it was unremarkable but never had EGD done before. As per patient last year she felt fullness in her left upper abdomen for which she underwent CT scan of abdomen on September 24, 2019 which showed splenomegaly and her repeat CT scan of chest abdomen pelvis done on June 02, 2020 showed progressive enlargement of spleen since September 24, 2019 now measures 17.3 cm. There are several small mediastinal hilar abdominal lymph nodes but these are less than centimeter and slightly increased in number. No pulmonary mass or nodule seen. Right inguinal hernia containing loop of small bowel with no obstruction at this time. Large hiatal hernia. Patient is also complaining of drenching night sweating for the last many months now progressive and also complaining of over 10 pound weight loss since last spring when she used to weigh around 124 pounds now down to 214, denies any recurrent fevers. 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 No overt dyspoietic or megaloblastic changes seen. No circulating blast cells identified. Severe hypochromic normocytic anemia., B-cell population is negative for CD5, CD10 as well as hairy cell markers, so nonspecific phenotypic features but also appears to be a component of increased plasma cells and possibly plasmacytoid lymphocytes. 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 And differential also include involvement by marginal zone lymphoma with plasmacytic differentiation versus lymphoplasmacytic lymphoma., Cytogenetic positive for deletion of 6 q. which is observed and chronic lymphocytic leukemia and also an lymphoplasmacytic lymphoma Molecular analysis for MYD 88 mutation, was recommended and has been ordered. Also ordered SPEP/immunofixation/quantitative immunoglobulins/serum light chain assaySerum protein electrophoresis done on August 11, 2020 shows faint restricted band, M spike, migrating in the gamma region and immunofixation confirmed IgM lambda monoclonal band, quantitative immunoglobulin showed IgM 617, normal being less than 230, IgG 374, IgA 28, serum light chain assay shows lambda free light chain 1416, kappa 7.5 kappa/lambda ratio 0.01, globulin 2.6, LDH 216 MYD 88 is pending Came for follow-up, feeling somewhat better but still has fullness in left upper quadrant, patient said high-dose steroid made her more anxious and give her insomnia but otherwise tolerated for 5 days but feeling much better, she did receive 2 units of packed RBC tolerated well, her lymphoma work-up work-up is still under consideration, case was discussed with pathologist, who is awaiting confirmatory test with MYD 88, if positive then lymphoplasmacytic lymphoma will be confirmed if negative then marginal zone lymphoma with plasma Patient denies any jaundice, denies any melena or hematochezia, denies any hemoptysis or hematemesis, denies any night sweats, denies any recurrent fever,cell differentiation would be a diagnosis Medications: Acetaminophen-Codeine 1 Tablet (of 300-30 mg) Oral q 6 hours PRN, Atorvastatin Calcium 1 Tablet (of 40 mg) Oral daily, Atorvastatin Calcium 1 Tablet (of 20 mg) Oral daily, [facility] Iron 1 Tablet (of 325 (65 fe) mg) Oral b.i.d. Allergies: Iodine Review of Systems: Review of Systems is not available for this patient. Vital Signs: Performed on Aug 17, 2020 11:53 Height - 62.00 in Weight - 111.4 lbs (HIGH) BSA - 1.49 sq.m BMI - 20.38 Temperature - 98.7 F Pulse - 99 /min Respiration - 18 /min BP - 130/60 mm(hg) O2 Sat - 99 % Pain - 6 Performance Status: 0 - Fully active, able to carry on all predisease activities without restrictions. (ECOG) Physical Examination: ENMT - No mouth sores, no thrush, no jaundice, Respiratory - Lungs are clear to auscultation, Cardiovascular - Regular rate and rhythm of heart, Abdomen - Soft,, bowel sounds present, splenomegaly palpable, Extremities - No visible edema. Lab/Imaging: Most recent lab results are not available for this patient. Impression: ,Monotypic B-cell population detected per whole blood flow cytometry done on June 14, 2020, bone marrow evaluation done on July 15, 2020 showed 50 to 70% bone marrow involvement with small B cell neoplasm, no increased blast cells seen, no dyspoietic pharmacologic changes seen. No amyloid material identified., Also seen component of increased plasma cell and possibly plasmacytoid lymphocytes. 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 The differential includes involvement by marginal zone lymphoma with plasmacytic differentiation versus lymphoplasmacytic lymphoma SPEP confirmed faint restricted band migrating in the gamma region, immunofixation confirmed IgM lambda monoclonal band, serum light chain assay shows kappa 7.5, lambda 1416.4 kappa/lambda ratio 0.01 Iron deficiency anemia status post 2 units of packed RBC done in May 2020 for hemoglobin 6.5 g and anemia work-up done on May 24, 2020 shows iron saturation 6%, iron 17, TIBC 292, folate 21.4, ferritin level is not available, etiology could be iron malabsorption or chronic/intermittent GI blood loss, probably from upper GI tract or small bowel as colonoscopy done 3 years ago, as per patient it was unremarkable Splenomegaly, with subcentimeter central lymphadenopathy, etiology unclear could be due to lymphoproliferative disorder Left upper abdominal fullness/pain probably due to splenomegaly History of hyperlipidemia, osteopenia Plan: Discussed with patient regarding her labs white blood count 16.4 hemoglobin 10.2 g compared to 6.8 g previously prior to 2 units of packed RBCs and course of 5 days prednisone, CMP within normal limit except glucose 175, SPEP shows faint M spike, immunofixation confirmed IgM, quantitative immunoglobulin shows IgM 617 IgG 374, IgA 28 Clinically, patient is doing reasonably better especially after 5 days course of high-dose prednisone which was given as there was worsening of patient's symptoms is a progressive generalized weakness and fatigue, drenching night sweats, progressive anemia requiring blood transfusion, with steroid her night sweats, generalized weakness fatigue is improved and her hemoglobin is improving although patient received 2 units of packed RBC. 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 Signed By: Alex Jha M.D. <<Signature on File>>
== END 2020-08-17 11:22 | disposition home or self-care (01) ==
LOC: ONCMED 11:23
PROVIDERS: PCP Nurse Practitioner Family; Visit Provider Internal Medicine Hematology & Oncology
DX: C83.00 Small cell B-cell lymphoma, unspecified site (principal); D50.0 Iron deficiency anemia secondary to blood loss (chronic); K90.9 Intestinal malabsorption, unspecified; R16.1 Splenomegaly, not elsewhere classified; E78.5 Hyperlipidemia, unspecified; M85.80 Other specified disorders of bone density and structure, unspecified site; Z79.899 Other long term (current) drug therapy
CPT/HCPCS: 99214

== ENCOUNTER 2020-08-19 09:16 | Outpatient (CLI) | payer MEDICARE, SELFPAY ==
[2020-08-19 09:58] LABS: Basophils % 0.3 %; Eosinophils % 0.7 %; Hematocrit 27.7 % (37.0-47.0); Hemoglobin 8.6 g/dL (11.5-15.3); Lymphocytes # 2.8 10^3/uL (0.8-4.8); Lymphocytes % 48.6 %; Mean Corpuscular Hemoglobin 26.2 pg (28.0-34.0); Mean Corpuscular Volume 84.5 fL (81-99); Mean Platelet Volume 11.1 fL (7.4-10.4); Monocytes # 0.3 10^3/uL (0.2-0.9); Monocytes % 5.9 %; Neutrophils # 2.54 10^3/uL (1.8-7.7); Neutrophils % 44.2 %; Nucleated Red Blood Cells % 0 %; Platelet Count 122 10^3/cmm (130-400); Red Blood Count 3.28 10^6/uL (4.1-5.3); Red Cell Distribution Width 16.4 % (12.1-15.1); White Blood Count 5.8 10^3/uL (4.0-10.0)
[2020-08-19 10:40] LABS: Slide Review Slide Review Perform
[2020-08-19 10:58] LABS: HIV 1 & 2 Antibody Non-Reactive (Non-Reactiv); HIV 1 & 2 Antigen Non-Reactive (Non-Reactiv)
[2020-08-19 12:03] LABS: Hepatitis A Antibody IgM Non-Reactive (Nonreactive); Hepatitis B Core AB, Total Non-Reactive (Nonreactive); Hepatitis B Surface AB 3.5 (11.5-1000); Hepatitis B Surface Antigen Non-Reactive (Nonreactive); Hepatitis C Virus Antibody Non-Reactive (Nonreactive)
--- NOTE | 2020-09-05 18:12 | ONC FU_ITS ---
Dr. Jha follow up note Patient: Prabha De Unit #: [id number]: [id number] Dicatated By: Alex Jha M.D.Date of Visit:Aug 19, 2020 Onc Med Follow-up/Prog Note History of Present Illness: Ms. Prabha De, is a 75-year-old female with history of mild anemia since 2018, as per patient in the beginning her hemoglobin would stay between 11 to 12 g but then gradually start decreasing and used to respond to oral iron which she has been taking for the last 2 years, despite of that her hemoglobin continue to drop slowly but gradually until about 2 weeks ago when she started feeling weak and tired and lightheaded and her CBC done showed hemoglobin around 6.5 g, patient was given 2 units of packed RBCs with that her hemoglobin improved to 8.5 g and she continue to take oral iron but now started having nausea and indigestion and abdominal pain, as per patient she had Hemoccult stool done which showed no evidence of bleeding and she had a colonoscopy done [address] Thapa and she was told it was unremarkable but never had EGD done before. As per patient last year she felt fullness in her left upper abdomen for which she underwent CT scan of abdomen on September 24, 2019 which showed splenomegaly and her repeat CT scan of chest abdomen pelvis done on June 02, 2020 showed progressive enlargement of spleen since September 24, 2019 now measures 17.3 cm. There are several small mediastinal hilar abdominal lymph nodes but these are less than centimeter and slightly increased in number. No pulmonary mass or nodule seen. Right inguinal hernia containing loop of small bowel with no obstruction at this time. Large hiatal hernia. Patient is also complaining of drenching night sweating for the last many months now progressive and also complaining of over 10 pound weight loss since last spring when she used to weigh around 124 pounds now down to 214, denies any recurrent fevers. 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 No overt dyspoietic or megaloblastic changes seen. No circulating blast cells identified. Severe hypochromic normocytic anemia., B-cell population is negative for CD5, CD10 as well as hairy cell markers, so nonspecific phenotypic features but also appears to be a component of increased plasma cells and possibly plasmacytoid lymphocytes. 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 And differential also include involvement by marginal zone lymphoma with plasmacytic differentiation versus lymphoplasmacytic lymphoma., Cytogenetic positive for deletion of 6 q. which is observed and chronic lymphocytic leukemia and also an lymphoplasmacytic lymphoma Molecular analysis for MYD 88 mutation, was recommended and has been ordered. 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) , Came for follow-up, patient is complaining of bilateral lower extremity erythematous rash, petechia versus allergic reaction, still complaining of night sweats and abdominal fullness and now with rash, earlier it was not clear whether patient has lymphoplasmacytic lymphoma versus marginal zone lymphoma, MYD 88 was suggested which came back negative and now pathology had confirmed final diagnosis being marginal zone lymphoma splenic Medications: Acetaminophen-Codeine 1 Tablet (of 300-30 mg) Oral q 6 hours PRN, Atorvastatin Calcium 1 Tablet (of 40 mg) Oral daily, Atorvastatin Calcium 1 Tablet (of 20 mg) Oral daily, [facility] Iron 1 Tablet (of 325 (65 fe) mg) Oral b.i.d. Allergies: Iodine Review of Systems: Review of Systems is not available for this patient. Vital Signs: Performed on Aug 19, 2020 10:30 Height - 62.00 in Weight - 110.2 lbs (LOW) BSA - 1.48 sq.m BMI - 20.16 Temperature - 98.0 F (LOW) Pulse - 100 /min Respiration - 18 /min BP - 146/75 mm(hg) (HIGH) O2 Sat - 98 % Pain - 6 Fatigue - 5 Performance Status: 2 - Ambulatory/capable of all self-care, unable to perform any work activities. Up and about more than 50% of waking hours. (ECOG) Physical Examination: ENMT - No mouth sores, no thrush, no jaundice, no cervical lymphadenopathy, Respiratory - Lungs are clear to auscultation, Cardiovascular - Regular rate and rhythm of heart, Abdomen - Soft, bowel sounds present, spleen is palpable in left abdomen, Extremities - No visible edema but erythematous rash involving lower extremities nontender. Lab/Imaging: Most recent lab results are not available for this patient. Impression: Marginal zone lymphoma (splenic )with plasmacytic differentiation as MYD 88 is negative, bone marrow evaluation done on July 15, 2020 showed 50 to 70% bone marrow involvement with small B cell neoplasm, no increased blast cells seen, no dyspoietic pharmacologic changes seen. No amyloid material identified., Also seen component of increased plasma cell and possibly plasmacytoid lymphocytes. 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 The differential includes involvement by marginal zone lymphoma with plasmacytic differentiation versus lymphoplasmacytic lymphoma Monotypic B-cell population detected per whole blood flow cytometry done on June 14, 2020 SPEP confirmed faint restricted band migrating in the gamma region, immunofixation confirmed IgM lambda monoclonal band, serum light chain assay shows kappa 7.5, lambda 1416.4 kappa/lambda ratio 0.01 Iron deficiency anemia status post 2 units of packed RBC done in May 2020 for hemoglobin 6.5 g and anemia work-up done on May 24, 2020 shows iron saturation 6%, iron 17, TIBC 292, folate 21.4, ferritin level is not available, etiology could be iron malabsorption or chronic/intermittent GI blood loss, probably from upper GI tract or small bowel as colonoscopy done 3 years ago, as per patient it was unremarkable Splenomegaly, with subcentimeter central lymphadenopathy, etiology unclear could be due to lymphoproliferative disorder Left upper abdominal fullness/pain probably due to splenomegaly History of hyperlipidemia, osteopenia Plan: .Discussed with patient regarding her labs white blood count 5.8 hemoglobin 8.6 hematocrit 27.7 platelets 122,000 compared to 294,000 previously 140,000 previously and her testing for them of MYD 88 came back negative, thus confirmed marginal zone lymphoma with plasmacytic differentiation and with bone marrow involvement and splenomegaly Clinically, patient is mild to moderate distress due to splenomegaly and generalized weakness and fatigue, night sweats now her lower extremity shows erythematous rash which is could be due to petechia or allergic reaction, will try hydrocortisone cream and now confirmed marginal zone lymphoma, we will consider checking her for hepatitis C, B, HIV as in many cases marginal zone lymphomas are associated with these infections and if underlying infection is treated there is a possibility of resolution of lymphoma on the other hand if testing came back negative, will consider weekly Rituxan x4-6, and evaluate her, patient was advised to avoid any kind of trauma to her abdomen as she is risk for splenic rupture and she was also advised in case there is a sudden abdominal pain she need to go to emergency room immediately patient was also advised to call us in case there is worsening of skin rash or any new symptoms. Return to clinic in 1 week with CBC CMP and hopefully by that time will have her hepatitis C/B and HIV status Signed By: Alex Jha M.D. <<Signature on File>>
== END 2020-08-19 09:17 | disposition home or self-care (01) ==
LOC: ONCMED 09:18
PROVIDERS: PCP Nurse Practitioner Family; Visit Provider Internal Medicine Hematology & Oncology
DX: C83.07 Small cell B-cell lymphoma, spleen (principal); D50.9 Iron deficiency anemia, unspecified; R16.1 Splenomegaly, not elsewhere classified; R10.10 Upper abdominal pain, unspecified; E78.5 Hyperlipidemia, unspecified; M85.80 Other specified disorders of bone density and structure, unspecified site; Z79.899 Other long term (current) drug therapy
CPT/HCPCS: 36415; 85025; 86705; 86706; 86709; 86803; 87340; 87806; 99214

== ENCOUNTER 2020-09-02 06:10 | Outpatient (CLI) | payer MEDICARE, SELFPAY ==
[2020-09-02 09:49] LABS: Basophils % 0.4 %; Eosinophils # 0.1 10^3/uL (0.0-0.8); Eosinophils % 1.1 %; Hematocrit 25.4 % (37.0-47.0); Hemoglobin 7.7 g/dL (11.5-15.3); Lymphocytes # 2.7 10^3/uL (0.8-4.8); Lymphocytes % 58.3 %; Mean Corpuscular HGB Conc 30.3 g/dL (30.0-36.0); Mean Corpuscular Hemoglobin 25.2 pg (28.0-34.0); Mean Platelet Volume 10.7 fL (7.4-10.4); Monocytes # 0.4 10^3/uL (0.2-0.9); Neutrophils # 1.49 10^3/uL (1.8-7.7); Nucleated Red Blood Cells % 0 %; Platelet Count 177 10^3/cmm (130-400); Red Blood Count 3.06 10^6/uL (4.1-5.3); Red Cell Distribution Width 15.6 % (12.1-15.1); White Blood Count 4.7 10^3/uL (4.0-10.0)
[2020-09-02 10:10] LABS: Alanine Aminotransferase < 5 U/L (0-33); Albumin Level 3.7 g/dL (3.5-5.2); Alkaline Phosphatase 104 IU/L (35-105); Anion Gap 16.2 (5-19); Aspartate Amino Transferase 12 U/L (0-32); Blood Urea Nitrogen 22 mg/dL (8-23); Carbon Dioxide 21 mmol/L (22-29); Chloride 104 mmol/L (98-107); Globulin 2.7 g/dL (1.3-4.6); Glucose 84 mg/dL (65-115); Osmolality Calculated 287 mOsm/kg (285-295); Potassium 4.2 mmol/L (3.5-5.1); Sodium 137 mmol/L (136-145); Total Bilirubin 0.6 mg/dL (0.15-1.2); Total Protein 6.4 g/dL (6.6-8.7)
[2020-09-02] MEDS: diphenhydrAMINE 50 mg/mL SDV 1mL 25 MG IVP ×2 (11:10→15:00)
[2020-09-02] MEDS: sodium chloride 0.9% 500 ML 100 ML IV (11:10)
[2020-09-02] MEDS: acetaminophen 325 mg Tablet 650 MG PO ×2 (11:10→15:00)
[2020-09-02] MEDS: dexamethasone 10 mg/mL INJ IV (13:04)
[2020-09-02] MEDS: sodium chloride 0.9% (100 ml) 100 ML (16:12)
[2020-09-03] VITALS (10 sets, daily range): BP systolic 114–130; BP diastolic 59–68; PULSE 74–83; RESP 18; TEMP 36.3–37.1; O2SAT 98–100
== END 2020-09-02 06:11 | disposition home or self-care (01) ==
PROVIDERS: PCP Nurse Practitioner Family; Visit Provider Internal Medicine Hematology & Oncology
DX: Z51.12 Encounter for antineoplastic immunotherapy (principal); C83.07 Small cell B-cell lymphoma, spleen; D50.9 Iron deficiency anemia, unspecified
CPT/HCPCS: 36415; 80053; 85025; 86850; 86900; 86920; 96375; 96413; 96415; J1100; J1200; J7040; J9312

== ENCOUNTER 2020-09-08 05:40 | Outpatient (RCR) | payer MEDICARE, SELFPAY ==
[2020-09-03] MEDS: sodium chloride 0.9% 250 ML IV (08:35)
[2020-09-03] MEDS: diphenhydrAMINE 25 mg Capsule PO (08:35)
[2020-09-03] MEDS: acetaminophen 325 mg Tablet 650 MG PO (08:35)
[2020-09-03] MEDS: FUROsemide 10 mg/mL SDV 2mL 20 MG IV (10:58)
[2020-09-07 09:33] LABS: Eosinophils # 0.1 10^3/uL (0.0-0.8); Eosinophils % 1.4 %; Hemoglobin 12.3 g/dL (11.5-15.3); Lymphocytes # 1.3 10^3/uL (0.8-4.8); Lymphocytes % 31.8 %; Mean Corpuscular HGB Conc 31.5 g/dL (30.0-36.0); Mean Corpuscular Hemoglobin 26.6 pg (28.0-34.0); Mean Corpuscular Volume 84.2 fL (81-99); Mean Platelet Volume 9.8 fL (7.4-10.4); Monocytes # 0.4 10^3/uL (0.2-0.9); Monocytes % 9.3 %; Neutrophils # 2.35 10^3/uL (1.8-7.7); Neutrophils % 56.3 %; Nucleated Red Blood Cells % 0 %; Platelet Count 141 10^3/cmm (130-400); Red Blood Count 4.63 10^6/uL (4.1-5.3); Red Cell Distribution Width 15.9 % (12.1-15.1); White Blood Count 4.2 10^3/uL (4.0-10.0)
[2020-09-07 09:59] LABS: Alanine Aminotransferase 8 U/L (0-33); Albumin Level 3.8 g/dL (3.5-5.2); Alkaline Phosphatase 110 IU/L (35-105); Anion Gap 15.4 (5-19); Aspartate Amino Transferase 14 U/L (0-32); Blood Urea Nitrogen 17 mg/dL (8-23); Carbon Dioxide 22 mmol/L (22-29); Chloride 105 mmol/L (98-107); Globulin 2.7 g/dL (1.3-4.6); Glucose 82 mg/dL (65-115); Osmolality Calculated 287 mOsm/kg (285-295); Potassium 4.4 mmol/L (3.5-5.1); Sodium 138 mmol/L (136-145); Total Bilirubin 0.9 mg/dL (0.15-1.2); Total Protein 6.5 g/dL (6.6-8.7)
[2020-09-08] MEDS: acetaminophen 325 mg Tablet 650 MG PO (09:13)
[2020-09-08] MEDS: diphenhydrAMINE 50 mg/mL SDV 1mL 25 MG IVP (09:13)
[2020-09-08] MEDS: sodium chloride 0.9% 500 ML 45 ML IV (09:13)
--- NOTE | 2020-09-09 16:58 | ONC FU_ITS ---
Dr. Jha follow up note Patient: Prabha De Unit #: [id number]: 1945 Dicatated By: Alex Jha M.D.Date of Visit:Sep 08, 2020 Onc Med Follow-up/Prog Note History of Present Illness: Ms. Prabha De, is a 75-year-old female with history of mild anemia since 2018, as per patient in the beginning her hemoglobin would stay between 11 to 12 g but then gradually start decreasing and used to respond to oral iron which she has been taking for the last 2 years, despite of that her hemoglobin continue to drop slowly but gradually until about 2 weeks ago when she started feeling weak and tired and lightheaded and her CBC done showed hemoglobin around 6.5 g, patient was given 2 units of packed RBCs with that her hemoglobin improved to 8.5 g and she continue to take oral iron but now started having nausea and indigestion and abdominal pain, as per patient she had Hemoccult stool done which showed no evidence of bleeding and she had a colonoscopy done [address] Thapa and she was told it was unremarkable but never had EGD done before. As per patient last year she felt fullness in her left upper abdomen for which she underwent CT scan of abdomen on September 24, 2019 which showed splenomegaly and her repeat CT scan of chest abdomen pelvis done on June 02, 2020 showed progressive enlargement of spleen since September 24, 2019 now measures 17.3 cm. There are several small mediastinal hilar abdominal lymph nodes but these are less than centimeter and slightly increased in number. No pulmonary mass or nodule seen. Right inguinal hernia containing loop of small bowel with no obstruction at this time. Large hiatal hernia. Patient is also complaining of drenching night sweating for the last many months now progressive and also complaining of over 10 pound weight loss since last spring when she used to weigh around 124 pounds now down to 214, denies any recurrent fevers. 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 No overt dyspoietic or megaloblastic changes seen. No circulating blast cells identified. Severe hypochromic normocytic anemia., B-cell population is negative for CD5, CD10 as well as hairy cell markers, so nonspecific phenotypic features but also appears to be a component of increased plasma cells and possibly plasmacytoid lymphocytes. 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 And differential also include involvement by marginal zone lymphoma with plasmacytic differentiation versus lymphoplasmacytic lymphoma., Cytogenetic positive for deletion of 6 q. which is observed and chronic lymphocytic leukemia and also an lymphoplasmacytic lymphoma Molecular analysis for MYD 88 mutation, was recommended and has been ordered. 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 Medications: Acetaminophen 1 Each (of 500 mg) Tablet Oral daily, Allopurinol 1 Each (of 100 mg) Tablet Oral ac (bid) Allergies: Iodine Review of Systems: Review of Systems is not available for this patient. Vital Signs: Performed on Sep 08, 2020 08:44 Height - 62.00 in Weight - 107.4 lbs (LOW) BSA - 1.47 sq.m BMI - 19.64 Temperature - 97.2 F (LOW) Pulse - 80 /min Respiration - 18 /min BP - 143/77 mm(hg) (HIGH) O2 Sat - 98 % Pain - 5 Performance Status: 0 - Fully active, able to carry on all predisease activities without restrictions. (ECOG) Physical Examination: ENMT - No mouth sores, no thrush, no jaundice, No cervical lymphadenopathy, Respiratory - Lungs are clear to auscultation, Cardiovascular - Regular rate and rhythm of heart, Abdomen - Soft, bowel sounds present, Significant improvement in spleen size, Extremities - No visible edema. Lab/Imaging: Most recent lab results are not available for this patient. Impression: Marginal zone lymphoma (splenic )with plasmacytic differentiation as MYD 88 is negative, bone marrow evaluation done on July 15, 2020 showed 50 to 70% bone marrow involvement with small B cell neoplasm, no increased blast cells seen, no dyspoietic pharmacologic changes seen. No amyloid material identified., Also seen component of increased plasma cell and possibly plasmacytoid lymphocytes. 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 The differential includes involvement by marginal zone lymphoma with plasmacytic differentiation versus lymphoplasmacytic lymphoma Monotypic B-cell population detected per whole blood flow cytometry done on June 14, 2020 SPEP confirmed faint restricted band migrating in the gamma region, immunofixation confirmed IgM lambda monoclonal band, serum light chain assay shows kappa 7.5, lambda 1416.4 kappa/lambda ratio 0.01 Iron deficiency anemia status post 2 units of packed RBC done in May 2020 for hemoglobin 6.5 g and anemia work-up done on May 24, 2020 shows iron saturation 6%, iron 17, TIBC 292, folate 21.4, ferritin level is not available, etiology could be iron malabsorption or chronic/intermittent GI blood loss, probably from upper GI tract or small bowel as colonoscopy done 3 years ago, as per patient it was unremarkable Splenomegaly, with subcentimeter central lymphadenopathy, etiology unclear could be due to lymphoproliferative disorder Left upper abdominal fullness/pain probably due to splenomegaly Started on weekly Rituxan on September 02, 2020, as her hepatitis profile was negative History of hyperlipidemia, osteopenia Plan: Discussed with patient regarding her labs white blood count 4.2 hemoglobin 12.3 hematocrit 39 platelets 141,000 CMP within normal limits creatinine 1.1 Clinically, patient is doing extremely well, her night sweats, abdominal pain/fullness, lower extremity petechial/erythematous rash has resolved since start taking Rituxan. Patient felt her spleen has also gone down. And very pleased with the treatment We will proceed with next weekly dose of Rituxan today and then she will return to clinic in 1 week with CBC CMP and for Rituxan., We will consider CT scan of chest abdomen pelvis after fourth dose of Rituxan to assess disease response and status Signed By: Alex Jha M.D. <<Signature on File>>
== END 2020-09-11 23:59 | disposition home or self-care (01) ==
LOC: ONCMED 05:40
PROVIDERS: PCP Nurse Practitioner Family; Visit Provider Internal Medicine Hematology & Oncology
DX: Z51.12 Encounter for antineoplastic immunotherapy (principal); C83.07 Small cell B-cell lymphoma, spleen; D50.0 Iron deficiency anemia secondary to blood loss (chronic); K90.9 Intestinal malabsorption, unspecified; R16.1 Splenomegaly, not elsewhere classified; R10.9 Unspecified abdominal pain; E78.5 Hyperlipidemia, unspecified; M85.80 Other specified disorders of bone density and structure, unspecified site; Z79.899 Other long term (current) drug therapy
CPT/HCPCS: 80053; 85025; 96375; 96413; 96415; 99215; J1200; J1940; J7040; J7050; J9312; P9016

== ENCOUNTER 2020-10-06 05:39 | Outpatient (RCR) | payer MEDICARE, SELFPAY ==
[2020-09-14 12:36] LABS: Basophils # 0.1 10^3/uL (0.0-0.1); Basophils % 1.1 %; Eosinophils # 0.1 10^3/uL (0.0-0.8); Hematocrit 40.5 % (37.0-47.0); Hemoglobin 12.7 g/dL (11.5-15.3); Lymphocytes # 1.4 10^3/uL (0.8-4.8); Lymphocytes % 22.3 %; Mean Corpuscular HGB Conc 31.4 g/dL (30.0-36.0); Mean Corpuscular Hemoglobin 26.7 pg (28.0-34.0); Mean Corpuscular Volume 85.3 fL (81-99); Mean Platelet Volume 9.8 fL (7.4-10.4); Monocytes # 0.4 10^3/uL (0.2-0.9); Monocytes % 5.6 %; Neutrophils # 4.38 10^3/uL (1.8-7.7); Neutrophils % 69.5 %; Nucleated Red Blood Cells % 0 %; Platelet Count 221 10^3/cmm (130-400); Red Blood Count 4.75 10^6/uL (4.1-5.3); Red Cell Distribution Width 16.3 % (12.1-15.1); White Blood Count 6.3 10^3/uL (4.0-10.0)
[2020-09-14 13:04] LABS: Alanine Aminotransferase 7 U/L (0-33); Alkaline Phosphatase 83 IU/L (35-105); Anion Gap 16.4 (5-19); Aspartate Amino Transferase 16 U/L (0-32); Blood Urea Nitrogen 25 mg/dL (8-23); Calcium 9.6 mg/dL (8.5-10.5); Carbon Dioxide 23 mmol/L (22-29); Chloride 107 mmol/L (98-107); Globulin 2.5 g/dL (1.3-4.6); Glucose 125 mg/dL (65-115); Osmolality Calculated 300 mOsm/kg (285-295); Potassium 4.4 mmol/L (3.5-5.1); Sodium 142 mmol/L (136-145); Total Bilirubin 0.9 mg/dL (0.15-1.2); Total Protein 6.5 g/dL (6.6-8.7)
[2020-09-15] MEDS: sodium chloride 0.9% 500 ML 45 ML IV (08:35)
[2020-09-15] MEDS: acetaminophen 325 mg Tablet 650 MG PO (08:35)
[2020-09-15] MEDS: diphenhydrAMINE 50 mg/mL SDV 1mL 25 MG IVP (08:37)
--- NOTE | 2020-09-15 08:40 | ONC FU_ITS ---
Dr. Jha follow up note Patient: Prabha De Unit #: [id number]: 1945 Dicatated By: Alex Jha M.D.Date of Visit:Sep 15, 2020 Onc Med Follow-up/Prog Note History of Present Illness: Ms. Prabha De, is a 75-year-old female with history of mild anemia since 2018, as per patient in the beginning her hemoglobin would stay between 11 to 12 g but then gradually start decreasing and used to respond to oral iron which she has been taking for the last 2 years, despite of that her hemoglobin continue to drop slowly but gradually until about 2 weeks ago when she started feeling weak and tired and lightheaded and her CBC done showed hemoglobin around 6.5 g, patient was given 2 units of packed RBCs with that her hemoglobin improved to 8.5 g and she continue to take oral iron but now started having nausea and indigestion and abdominal pain, as per patient she had Hemoccult stool done which showed no evidence of bleeding and she had a colonoscopy done [address] Thapa and she was told it was unremarkable but never had EGD done before. As per patient last year she felt fullness in her left upper abdomen for which she underwent CT scan of abdomen on September 24, 2019 which showed splenomegaly and her repeat CT scan of chest abdomen pelvis done on June 02, 2020 showed progressive enlargement of spleen since September 24, 2019 now measures 17.3 cm. There are several small mediastinal hilar abdominal lymph nodes but these are less than centimeter and slightly increased in number. No pulmonary mass or nodule seen. Right inguinal hernia containing loop of small bowel with no obstruction at this time. Large hiatal hernia. Patient is also complaining of drenching night sweating for the last many months now progressive and also complaining of over 10 pound weight loss since last spring when she used to weigh around 124 pounds now down to 214, denies any recurrent fevers. 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 No overt dyspoietic or megaloblastic changes seen. No circulating blast cells identified. Severe hypochromic normocytic anemia., B-cell population is negative for CD5, CD10 as well as hairy cell markers, so nonspecific phenotypic features but also appears to be a component of increased plasma cells and possibly plasmacytoid lymphocytes. 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 And differential also include involvement by marginal zone lymphoma with plasmacytic differentiation versus lymphoplasmacytic lymphoma., Cytogenetic positive for deletion of 6 q. which is observed and chronic lymphocytic leukemia and also an lymphoplasmacytic lymphoma Molecular analysis for MYD 88 mutation, was recommended and has been ordered. 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 No abdominal pain, no nausea or vomiting, no fever chills. Tolerating weekly Rituxan well otherwise. Medications: Acetaminophen 1 Each (of 500 mg) Tablet Oral daily, Allopurinol 1 Each (of 100 mg) Tablet Oral ac (bid) Allergies: Iodine Review of Systems: Review of Systems is not available for this patient. Vital Signs: Performed on Sep 15, 2020 08:14 Height - 62.00 in Weight - 108 lbs (HIGH) BSA - 1.47 sq.m BMI - 19.75 Temperature - 97.8 F (LOW) Pulse - 73 /min Respiration - 18 /min BP - 119/67 mm(hg) O2 Sat - 99 % Pain - 0 Fatigue - 7 Performance Status: 0 - Fully active, able to carry on all predisease activities without restrictions. (ECOG) Physical Examination: ENMT - No mouth sores, no jaundice, no cervical lymphadenopathy, Respiratory - Lungs are clear to auscultation, Cardiovascular - Regular rate and rhythm of heart , Abdomen - Soft, bowel sounds present, Extremities - No visible edema or rash. Lab/Imaging: Most recent lab results are not available for this patient. Impression: Marginal zone lymphoma (splenic )with plasmacytic differentiation as MYD 88 is negative, bone marrow evaluation done on July 15, 2020 showed 50 to 70% bone marrow involvement with small B cell neoplasm, no increased blast cells seen, no dyspoietic pharmacologic changes seen. No amyloid material identified., Also seen component of increased plasma cell and possibly plasmacytoid lymphocytes. 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 The differential includes involvement by marginal zone lymphoma with plasmacytic differentiation versus lymphoplasmacytic lymphoma Monotypic B-cell population detected per whole blood flow cytometry done on June 14, 2020 SPEP confirmed faint restricted band migrating in the gamma region, immunofixation confirmed IgM lambda monoclonal band, serum light chain assay shows kappa 7.5, lambda 1416.4 kappa/lambda ratio 0.01 Iron deficiency anemia status post 2 units of packed RBC done in May 2020 for hemoglobin 6.5 g and anemia work-up done on May 24, 2020 shows iron saturation 6%, iron 17, TIBC 292, folate 21.4, ferritin level is not available, etiology could be iron malabsorption or chronic/intermittent GI blood loss, probably from upper GI tract or small bowel as colonoscopy done 3 years ago, as per patient it was unremarkable Splenomegaly, with subcentimeter central lymphadenopathy, etiology unclear could be due to lymphoproliferative disorder Left upper abdominal fullness/pain probably due to splenomegaly Started on weekly Rituxan on September 02, 2020, as her hepatitis profile was negative History of hyperlipidemia, osteopenia Plan: Discussed with patient regarding her labs white blood count 6.3 hemoglobin 12.7 g compared to 12.3 g previously hematocrit 40.5 platelets 221,000 compared to 1 41,000 previously CMP within normal limit except creatinine 1.1, stable Clinically, patient is doing well, tolerating weekly Rituxan well with excellent response splenomegaly improving, night sweats improving overall patient is feeling well, anemia is resolved. Mild renal insufficiency but stable, patient was advised to maintain hydration, will continue to monitor, will proceed with third weekly dose of Rituxan today and then she will return to clinic in 1 week with CBC CMP and LDH and for next dose of weekly Rituxan. Planning is to repeat CT scan of chest abdomen pelvis after next dose of Rituxan to assess disease response. Signed By: Alex Jha M.D. <<Signature on File>>
[2020-09-21 12:08] LABS: Basophils # 0.1 10^3/uL (0.0-0.1); Basophils % 0.9 %; Eosinophils # 0.1 10^3/uL (0.0-0.8); Eosinophils % 1.4 %; Hematocrit 38.8 % (37.0-47.0); Hemoglobin 12.4 g/dL (11.5-15.3); Lymphocytes # 1.7 10^3/uL (0.8-4.8); Lymphocytes % 29.9 %; Mean Corpuscular Hemoglobin 26.3 pg (28.0-34.0); Mean Corpuscular Volume 82.4 fL (81-99); Monocytes # 0.5 10^3/uL (0.2-0.9); Monocytes % 8.3 %; Neutrophils % 59.3 %; Nucleated Red Blood Cells % 0 %; Platelet Count 233 10^3/cmm (130-400); Red Blood Count 4.71 10^6/uL (4.1-5.3); Red Cell Distribution Width 16.6 % (12.1-15.1); White Blood Count 5.6 10^3/uL (4.0-10.0)
[2020-09-21 12:41] LABS: Alanine Aminotransferase 8 U/L (0-33); Albumin Level 4.4 g/dL (3.5-5.2); Alkaline Phosphatase 80 IU/L (35-105); Anion Gap 17.6 (5-19); Aspartate Amino Transferase 13 U/L (0-32); Blood Urea Nitrogen 26 mg/dL (8-23); Calcium 9.7 mg/dL (8.5-10.5); Carbon Dioxide 23 mmol/L (22-29); Chloride 101 mmol/L (98-107); Globulin 1.8 g/dL (1.3-4.6); Glucose 76 mg/dL (65-115); Lactate Dehydrogenase 162 U/L (135-214); Osmolality Calculated 288 mOsm/kg (285-295); Potassium 4.6 mmol/L (3.5-5.1); Sodium 137 mmol/L (136-145); Total Protein 6.2 g/dL (6.6-8.7)
[2020-09-22] MEDS: acetaminophen 325 mg Tablet 650 MG PO (09:57)
[2020-09-22] MEDS: diphenhydrAMINE 50 mg/mL SDV 1mL 25 MG IVP (09:57)
[2020-09-22] MEDS: sodium chloride 0.9% 500 ML 75 ML IV (09:57)
--- NOTE | 2020-09-23 16:32 | ONC FU_ITS ---
Dr. Jha follow up note Patient: Prabha De Unit #: [id number]: 1945 Dicatated By: Alex Jha M.D.Date of Visit:Sep 22, 2020 Onc Med Follow-up/Prog Note History of Present Illness: Ms. Prabha De, is a 75-year-old female with history of mild anemia since 2018, as per patient in the beginning her hemoglobin would stay between 11 to 12 g but then gradually start decreasing and used to respond to oral iron which she has been taking for the last 2 years, despite of that her hemoglobin continue to drop slowly but gradually until about 2 weeks ago when she started feeling weak and tired and lightheaded and her CBC done showed hemoglobin around 6.5 g, patient was given 2 units of packed RBCs with that her hemoglobin improved to 8.5 g and she continue to take oral iron but now started having nausea and indigestion and abdominal pain, as per patient she had Hemoccult stool done which showed no evidence of bleeding and she had a colonoscopy done [address] Thapa and she was told it was unremarkable but never had EGD done before. As per patient last year she felt fullness in her left upper abdomen for which she underwent CT scan of abdomen on September 24, 2019 which showed splenomegaly and her repeat CT scan of chest abdomen pelvis done on June 02, 2020 showed progressive enlargement of spleen since September 24, 2019 now measures 17.3 cm. There are several small mediastinal hilar abdominal lymph nodes but these are less than centimeter and slightly increased in number. No pulmonary mass or nodule seen. Right inguinal hernia containing loop of small bowel with no obstruction at this time. Large hiatal hernia. Patient is also complaining of drenching night sweating for the last many months now progressive and also complaining of over 10 pound weight loss since last spring when she used to weigh around 124 pounds now down to 214, denies any recurrent fevers. 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 No overt dyspoietic or megaloblastic changes seen. No circulating blast cells identified. Severe hypochromic normocytic anemia., B-cell population is negative for CD5, CD10 as well as hairy cell markers, so nonspecific phenotypic features but also appears to be a component of increased plasma cells and possibly plasmacytoid lymphocytes. 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 And differential also include involvement by marginal zone lymphoma with plasmacytic differentiation versus lymphoplasmacytic lymphoma., Cytogenetic positive for deletion of 6 q. which is observed and chronic lymphocytic leukemia and also an lymphoplasmacytic lymphoma Molecular analysis for MYD 88 mutation, was recommended and has been ordered. 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 Vital Signs: Performed on Sep 22, 2020 09:04 Height - 62.00 in Weight - 107.4 lbs (LOW) BSA - 1.47 sq.m BMI - 19.64 Temperature - 97.7 F (LOW) Pulse - 81 /min Respiration - 18 /min BP - 126/77 mm(hg) O2 Sat - 98 % Pain - 0 Fatigue - 3 Performance Status: 0 - Fully active, able to carry on all predisease activities without restrictions. (ECOG) Physical Examination: ENMT - No mouth sores, no thrush, no jaundice no cervical lymphadenopathy, Respiratory - Lungs are clear to auscultation, Cardiovascular - Regular rate and rhythm of heart, Abdomen - Soft, bowel sounds present, Extremities - No visible edema. Lab/Imaging: Most recent lab results are not available for this patient. Impression: Marginal zone lymphoma (splenic )with plasmacytic differentiation as MYD 88 is negative, bone marrow evaluation done on July 15, 2020 showed 50 to 70% bone marrow involvement with small B cell neoplasm, no increased blast cells seen, no dyspoietic pharmacologic changes seen. No amyloid material identified., Also seen component of increased plasma cell and possibly plasmacytoid lymphocytes. 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 The differential includes involvement by marginal zone lymphoma with plasmacytic differentiation versus lymphoplasmacytic lymphoma Monotypic B-cell population detected per whole blood flow cytometry done on June 14, 2020 SPEP confirmed faint restricted band migrating in the gamma region, immunofixation confirmed IgM lambda monoclonal band, serum light chain assay shows kappa 7.5, lambda 1416.4 kappa/lambda ratio 0.01 Iron deficiency anemia status post 2 units of packed RBC done in May 2020 for hemoglobin 6.5 g and anemia work-up done on May 24, 2020 shows iron saturation 6%, iron 17, TIBC 292, folate 21.4, ferritin level is not available, etiology could be iron malabsorption or chronic/intermittent GI blood loss, probably from upper GI tract or small bowel as colonoscopy done 3 years ago, as per patient it was unremarkable Splenomegaly, with subcentimeter central lymphadenopathy, etiology unclear could be due to lymphoproliferative disorder Left upper abdominal fullness/pain probably due to splenomegaly Started on weekly Rituxan on September 02, 2020, as her hepatitis profile was negative History of hyperlipidemia, osteopenia Plan: Discussed with patient regarding her labs white blood count 5.6 hemoglobin 12.4 hematocrit 38.8 platelets 233,000 CMP within normal limits except creatinine 1.1, LDH is 162 Clinically, patient doing well with no new signs symptom, no more night sweats, no abdominal fullness, her lab work-up shows resolution of hemolytic anemia, at this point we will proceed with weekly Rituxan No. 4 consider follow-up CT scan of chest abdomen if it shows complete response, will discuss about maintenance therapy with Rituxan every 3 months for 2 years but considering increased risk of Covid infection in Covid pandemic other option would be observation and treat if recurrence. We will discuss these options after reviewing her CT scan, if CT scan shows partial response then may consider 2 more weekly Rituxan doses and repeat scan if it shows persistent splenomegaly, will consider splenectomy. Return to clinic in 1 week with CBC CMP and follow-up CT scan chest abdomen Signed By: Alex Jha M.D. <<Signature on File>>
[2020-09-27 09:52] LABS: Basophils % 0.9 %; Eosinophils # 0.1 10^3/uL (0.0-0.8); Eosinophils % 2.2 %; Hematocrit 38.8 % (37.0-47.0); Hemoglobin 12.5 g/dL (11.5-15.3); Lymphocytes # 1.3 10^3/uL (0.8-4.8); Lymphocytes % 28.4 %; Mean Corpuscular HGB Conc 32.2 g/dL (30.0-36.0); Mean Corpuscular Hemoglobin 26.8 pg (28.0-34.0); Mean Corpuscular Volume 83.3 fl (81-99); Mean Platelet Volume 10.3 fL (7.4-10.4); Monocytes # 0.3 10^3/uL (0.2-0.9); Monocytes % 7.5 %; Neutrophils # 2.76 10^3/uL (1.8-7.7); Neutrophils % 60.8 %; Nucleated Red Blood Cells % 0 %; Platelet Count 212 10^3/cmm (130-400); Red Blood Count 4.66 10^6/uL (4.1-5.3); White Blood Count 4.5 10^3/uL (4.0-10.0)
[2020-09-27 10:20] LABS: Alanine Aminotransferase 10 U/L (0-33); Albumin Level 4.4 g/dL (3.5-5.2); Alkaline Phosphatase 78 IU/L (35-105); Aspartate Amino Transferase 17 U/L (0-32); Blood Urea Nitrogen 26 mg/dL (8-23); Carbon Dioxide 24 mmol/L (22-29); Chloride 104 mmol/L (98-107); Globulin 2.5 g/dL (1.3-4.6); Glucose 78 mg/dL (65-115); Osmolality Calculated 294 mOsm/kg (285-295); Sodium 140 mmol/L (136-145); Total Bilirubin 0.9 mg/dL (0.15-1.2); Total Protein 6.9 g/dL (6.6-8.7)
--- NOTE | 2020-09-27 11:58 | CT_ITS ---
WS: [id number] CT CHEST AND ABDOMEN WITHOUT CONTRAST HISTORY: LYMPHOMA TECHNIQUE: Axial imaging is performed through the chest and abdomen without IV or oral contrast. Sagi ttal and coronal reformats. All CT scans at [facility] use at least one of these dose opt imization techniques: automated exposure control; mA and/or kV adjustment per patient size (includes targeted exams where dose is matched to clinical indication); or iterative reconstruction. CONTRAST: None DLP: 717.31 mGy.cm COMPARISON: 06/02/[address]: Mild pulmonary hyperexpansion. No pulmonary mass or pneumonia. Small mediastinal and hilar lymph node s are similar to the prior study. Heart size is normal. Mitral annular calcifications. Very large incarcerated hiatal hernia. Increased in the thoracic kyphosis. Sclerotic changes along the anterior endplates of several of the midthoracic vertebral bodies. Abdomen CT: Liver: Normal size liver. Low-attenuation stable 10 mm nodule in the superior RIGHT lobe. No bile tyshawn t dilatation. Gallbladder is present. Gallbladder: Normal. Pancreas: Normal. Spleen: Spleen is slightly enlarged at 13.1 cm in length. Decreased in size from the prior study. Right kidney: Normal. Left kidney: Normal. Normal adrenal glands. Abdominal aorta: Moderate atherosclerosis with no aneurysm. Gastrointestinal tract: As visualized are normal. Osseous structures: Mild increase in the lumbar lordosis. CT/CT chest abdomen wo con IMPRESSION: 1. Sensitivity of this study is limited by noncontrast evaluation. 2. Spleen is slightly enlarged at 13.1 cm with decrease in size since the prio r study. 3. No new or increasing lymph nodes in the chest or abdomen. 4. Large incarcerated hiatal hernia. 5. Hepatic cysts.
[2020-09-29] MEDS: acetaminophen 325 mg Tablet 650 MG PO (10:03)
[2020-09-29] MEDS: diphenhydrAMINE 50 mg/mL SDV 1mL 25 MG IVP (10:03)
[2020-09-29] MEDS: sodium chloride 0.9% 500 ML 75 ML IV (10:03)
--- NOTE | 2020-09-29 12:05 | ONC FU_ITS ---
Dr. Jha follow up note Patient: Prabha De Unit #: [id number]: 1945 Dicatated By: Alex Jha M.D.Date of Visit:Sep 29, 2020 Onc Med Follow-up/Prog Note History of Present Illness: Ms. Prabha De, is a 75-year-old female with history of mild anemia since 2018, as per patient in the beginning her hemoglobin would stay between 11 to 12 g but then gradually start decreasing and used to respond to oral iron which she has been taking for the last 2 years, despite of that her hemoglobin continue to drop slowly but gradually until about 2 weeks ago when she started feeling weak and tired and lightheaded and her CBC done showed hemoglobin around 6.5 g, patient was given 2 units of packed RBCs with that her hemoglobin improved to 8.5 g and she continue to take oral iron but now started having nausea and indigestion and abdominal pain, as per patient she had Hemoccult stool done which showed no evidence of bleeding and she had a colonoscopy done [address] Thapa and she was told it was unremarkable but never had EGD done before. As per patient last year she felt fullness in her left upper abdomen for which she underwent CT scan of abdomen on September 24, 2019 which showed splenomegaly and her repeat CT scan of chest abdomen pelvis done on June 02, 2020 showed progressive enlargement of spleen since September 24, 2019 now measures 17.3 cm. There are several small mediastinal hilar abdominal lymph nodes but these are less than centimeter and slightly increased in number. No pulmonary mass or nodule seen. Right inguinal hernia containing loop of small bowel with no obstruction at this time. Large hiatal hernia. Patient is also complaining of drenching night sweating for the last many months now progressive and also complaining of over 10 pound weight loss since last spring when she used to weigh around 124 pounds now down to 214, denies any recurrent fevers. 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 No overt dyspoietic or megaloblastic changes seen. No circulating blast cells identified. Severe hypochromic normocytic anemia., B-cell population is negative for CD5, CD10 as well as hairy cell markers, so nonspecific phenotypic features but also appears to be a component of increased plasma cells and possibly plasmacytoid lymphocytes. 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 And differential also include involvement by marginal zone lymphoma with plasmacytic differentiation versus lymphoplasmacytic lymphoma., Cytogenetic positive for deletion of 6 q. which is observed and chronic lymphocytic leukemia and also an lymphoplasmacytic lymphoma Molecular analysis for MYD 88 mutation, was recommended and has been ordered. 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 Low-attenuation stable 10 mm nodule in the superior right lobe of the liver., Small mediastinal and hilar lymph nodes are similar to prior study. Came for follow-up, denies any specific complaints, no fever chills, no nausea or vomiting, no diarrhea or constipation, no abdominal pain or fullness, no night sweats, no peripheral lymphadenopathy, tolerating weekly Rituxan well otherwise Medications: Acetaminophen 1 Each (of 500 mg) Tablet Oral daily, Allopurinol 1 Each (of 100 mg) Tablet Oral ac (bid) Allergies: Iodine Review of Systems: Review of Systems is not available for this patient. Vital Signs: Performed on Sep 29, 2020 08:13 Height - 62.00 in Weight - 108.4 lbs (HIGH) BSA - 1.47 sq.m BMI - 19.83 Temperature - 97.8 F (LOW) Pulse - 87 /min Respiration - 18 /min BP - 135/78 mm(hg) O2 Sat - 99 % Pain - 0 Fatigue - 2 Performance Status: 0 - Fully active, able to carry on all predisease activities without restrictions. (ECOG) Physical Examination: ENMT - No mouth sores, no thrush, no jaundice no cervical lymphadenopathy, Respiratory - Lungs are clear to auscultation, Cardiovascular - Regular rate and rhythm of heart, Abdomen - Soft, bowel sounds present, Extremities - No visible edema. Lab/Imaging: Most recent lab results are not available for this patient. Impression: Marginal zone lymphoma (splenic )with plasmacytic differentiation as MYD 88 is negative, bone marrow evaluation done on July 15, 2020 showed 50 to 70% bone marrow involvement with small B cell neoplasm, no increased blast cells seen, no dyspoietic pharmacologic changes seen. No amyloid material identified., Also seen component of increased plasma cell and possibly plasmacytoid lymphocytes. 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 The differential includes involvement by marginal zone lymphoma with plasmacytic differentiation versus lymphoplasmacytic lymphoma Monotypic B-cell population detected per whole blood flow cytometry done on June 14, 2020 SPEP confirmed faint restricted band migrating in the gamma region, immunofixation confirmed IgM lambda monoclonal band, serum light chain assay shows kappa 7.5, lambda 1416.4 kappa/lambda ratio 0.01 Iron deficiency anemia status post 2 units of packed RBC done in May 2020 for hemoglobin 6.5 g and anemia work-up done on May 24, 2020 shows iron saturation 6%, iron 17, TIBC 292, folate 21.4, ferritin level is not available, etiology could be iron malabsorption or chronic/intermittent GI blood loss, probably from upper GI tract or small bowel as colonoscopy done 3 years ago, as per patient it was unremarkable Splenomegaly, with subcentimeter central lymphadenopathy, etiology unclear could be due to lymphoproliferative disorder Left upper abdominal fullness/pain probably due to splenomegaly Started on weekly Rituxan on September 02, 2020, as her hepatitis profile was negative History of hyperlipidemia, osteopenia Started on weekly Rituxan on September 02, 2020 Follow-up CT scan of abdomen pelvis done after 4 weekly dose of Rituxan on September 27, 2020 shows excellent response, now spleen is about 13.1 cm, slightly large but significantly improved compared to previous study Plan: Discussed with patient regarding her labs white blood count 4.5 hemoglobin 12.5 hematocrit 38.8 platelets 212,000 ANC is 2760 CMP within normal limits including LDH checked on September 21, 2020 Follow-up CT scan of abdomen pelvis done after 4 weekly dose of Rituxan on September 27, 2020 shows excellent response, now spleen is about 13.1 cm, slightly large but significantly improved compared to previous study Clinically, patient doing well with no new signs symptom, no night sweats, no more abdominal fullness or palpable spleen, responded very well to weekly Rituxan for follow-up CT scan of abdomen pelvis shows significant improvement in splenomegaly now on the upper side of normal range and small subcentimeter low-attenuation in the liver which is stable etiology unclear At this point treatment options including, consolidation with 2 more weekly Rituxan as patient still has mild mildly enlarged spleen or consider maintenance therapy with Rituxan every 2 to 3 months for 2 years or observation. As in clinical trial named the RESORT trial , regarding role of Rituxan as maintenance therapy in marginal zone lymphoma, shows following induction therapy with Rituxan, Maintenance Rituxan, versus Rituxan retreatment at the time of progression, showed time to treatment failure and those with indolent lymphoma was 3.74 years for maintenance Rituxan versus 1 year for observation group, in addition, at 3 years 100% patient of maintenance Rituxan remained free of cytotoxic therapy compared to 70% of patient in observation group, But concern is increased risk of Covid infection pandemic especially due to immune suppression due to maintenance Rituxan especially in elderly patient risk versus benefit with maintenance Rituxan were discussed in detail, patient opted for 2 more weekly Rituxan followed by observation and retreat if recurrence. At this point we will proceed with second last weekly Rituxan dose today then she will return to clinic in 1 week with CBC CMP , And serum protein electrophoresis/immunofixation and serum light chain assay, for last dose of Rituxan subsequently she will return to clinic every 3 months with CBC CMP LDH for observation Signed By: Alex Jha M.D. <<Signature on File>>
[2020-10-05 15:05] LABS: Basophils % 0.7 %; Eosinophils # 0.1 10^3/uL (0.0-0.8); Eosinophils % 2.2 %; Hematocrit 36.1 % (37.0-47.0); Hemoglobin 11.7 g/dL (11.5-15.3); Lymphocytes # 1.6 10^3/uL (0.8-4.8); Mean Corpuscular HGB Conc 32.4 g/dL (30.0-36.0); Mean Corpuscular Hemoglobin 27.1 pg (28.0-34.0); Mean Corpuscular Volume 83.6 fl (81-99); Mean Platelet Volume 10.6 fL (7.4-10.4); Monocytes # 0.4 10^3/uL (0.2-0.9); Monocytes % 7.4 %; Neutrophils # 3.54 10^3/uL (1.8-7.7); Neutrophils % 61.4 %; Nucleated Red Blood Cells % 0 %; Platelet Count 208 10^3/cmm (130-400); Red Blood Count 4.32 10^6/uL (4.1-5.3); Red Cell Distribution Width 16.7 % (12.1-15.1); White Blood Count 5.8 10^3/uL (4.0-10.0)
[2020-10-05 15:43] LABS: Alanine Aminotransferase 8 U/L (0-33); Albumin Level 4.2 g/dL (3.5-5.2); Alkaline Phosphatase 69 IU/L (35-105); Anion Gap 15.1 (5-19); Aspartate Amino Transferase 16 U/L (0-32); Blood Urea Nitrogen 24 mg/dL (8-23); Calcium 9.5 mg/dL (8.5-10.5); Carbon Dioxide 22 mmol/L (22-29); Chloride 103 mmol/L (98-107); Globulin 2.4 g/dL (1.3-4.6); Glucose 80 mg/dL (65-115); Osmolality Calculated 285 mOsm/kg (285-295); Potassium 4.1 mmol/L (3.5-5.1); Sodium 136 mmol/L (136-145); Total Bilirubin 0.6 mg/dL (0.15-1.2); Total Protein 6.6 g/dL (6.6-8.7)
[2020-10-06 07:22] LABS: PROTEIN, TOTAL 6.6 g/dL (6.1-8.1)
[2020-10-06] MEDS: acetaminophen 325 mg Tablet 650 MG PO (09:30)
[2020-10-06] MEDS: diphenhydrAMINE 50 mg/mL SDV 1mL 25 MG IVP (09:30)
[2020-10-06] MEDS: sodium chloride 0.9% 500 ML 75 ML IV (09:30)
[2020-10-06 15:47] LABS: KAPPA LIGHT CHAIN, FREE, SERUM 8.6 mg/L (3.3-19.4); KAPPA/LAMBDA LIGHT CHAINS FREE 0.01 (0.26-1.65); LAMBDA LIGHT CHAIN, FREE, SERU 1044.8 mg/L (5.7-26.3)
[2020-10-06 17:23] LABS: ABNORMAL PROTEIN BAND 1 0.3 g/dL (NONE DETECTED); ABNORMAL PROTEIN BAND 2 0.1 g/dL (NONE DETECTED); ALBUMIN 4.3 g/dL (3.8-4.8); ALPHA 1 GLOBULIN 0.3 g/dL (0.2-0.3); ALPHA 2 GLOBULIN 0.8 g/dL (0.5-0.9); BETA 1 GLOBULIN 0.4 g/dL (0.4-0.6); BETA 2 GLOBULIN 0.3 g/dL (0.2-0.5); GAMMA GLOBULIN 0.5 g/dL (0.8-1.7)
--- NOTE | 2020-10-10 20:08 | ONC FU_ITS ---
Dr. Jha follow up note Patient: Prabha De Unit #: [id number]: 1945 Dicatated By: Alex Jha M.D.Date of Visit:Oct 06, 2020 Onc Med Follow-up/Prog Note History of Present Illness: Ms. Prabha De, is a 75-year-old female with history of mild anemia since 2018, as per patient in the beginning her hemoglobin would stay between 11 to 12 g but then gradually start decreasing and used to respond to oral iron which she has been taking for the last 2 years, despite of that her hemoglobin continue to drop slowly but gradually until about 2 weeks ago when she started feeling weak and tired and lightheaded and her CBC done showed hemoglobin around 6.5 g, patient was given 2 units of packed RBCs with that her hemoglobin improved to 8.5 g and she continue to take oral iron but now started having nausea and indigestion and abdominal pain, as per patient she had Hemoccult stool done which showed no evidence of bleeding and she had a colonoscopy done [address] Thapa and she was told it was unremarkable but never had EGD done before. As per patient last year she felt fullness in her left upper abdomen for which she underwent CT scan of abdomen on September 24, 2019 which showed splenomegaly and her repeat CT scan of chest abdomen pelvis done on June 02, 2020 showed progressive enlargement of spleen since September 24, 2019 now measures 17.3 cm. There are several small mediastinal hilar abdominal lymph nodes but these are less than centimeter and slightly increased in number. No pulmonary mass or nodule seen. Right inguinal hernia containing loop of small bowel with no obstruction at this time. Large hiatal hernia. Patient is also complaining of drenching night sweating for the last many months now progressive and also complaining of over 10 pound weight loss since last spring when she used to weigh around 124 pounds now down to 214, denies any recurrent fevers. 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 No overt dyspoietic or megaloblastic changes seen. No circulating blast cells identified. Severe hypochromic normocytic anemia., B-cell population is negative for CD5, CD10 as well as hairy cell markers, so nonspecific phenotypic features but also appears to be a component of increased plasma cells and possibly plasmacytoid lymphocytes. 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 And differential also include involvement by marginal zone lymphoma with plasmacytic differentiation versus lymphoplasmacytic lymphoma., Cytogenetic positive for deletion of 6 q. which is observed and chronic lymphocytic leukemia and also an lymphoplasmacytic lymphoma Molecular analysis for MYD 88 mutation, was recommended and has been ordered. 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 Low-attenuation stable 10 mm nodule in the superior right lobe of the liver., Small mediastinal and hilar lymph nodes are similar to prior study. Came for follow-up, denies any specific complaints, no fever chills, no nausea or vomiting, no diarrhea constipation, no skin rash, no jaundice, no abdominal pain or fullness, no night sweats, tolerating weekly Rituxan well otherwise Medications: Acetaminophen 1 Each (of 500 mg) Tablet Oral daily, Allopurinol 1 Each (of 100 mg) Tablet Oral ac (bid) Allergies: Iodine Review of Systems: Review of Systems is not available for this patient. Vital Signs: Performed on Oct 06, 2020 08:34 Height - 62.00 in Weight - 109 lbs (HIGH) BSA - 1.48 sq.m BMI - 19.94 Temperature - 97.0 F (LOW) Pulse - 91 /min Respiration - 18 /min BP - 148/81 mm(hg) (HIGH) O2 Sat - 99 % Pain - 0 Performance Status: Perf. Status is not available for this patient. Physical Examination: ENMT - No mouth sores, no thrush, no jaundice no cervical lymphadenopathy, Respiratory - Lungs are clear to auscultation, Cardiovascular - Regular rate and rhythm of heart, Abdomen - Soft, bowel sounds present, Extremities - No visible edema. Lab/Imaging: Most recent lab results are not available for this patient. Impression: Marginal zone lymphoma (splenic )with plasmacytic differentiation as MYD 88 is negative, bone marrow evaluation done on July 15, 2020 showed 50 to 70% bone marrow involvement with small B cell neoplasm, no increased blast cells seen, no dyspoietic pharmacologic changes seen. No amyloid material identified., Also seen component of increased plasma cell and possibly plasmacytoid lymphocytes. 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 The differential includes involvement by marginal zone lymphoma with plasmacytic differentiation versus lymphoplasmacytic lymphoma Monotypic B-cell population detected per whole blood flow cytometry done on June 14, 2020 SPEP confirmed faint restricted band migrating in the gamma region, immunofixation confirmed IgM lambda monoclonal band, serum light chain assay shows kappa 7.5, lambda 1416.4 kappa/lambda ratio 0.01 Iron deficiency anemia status post 2 units of packed RBC done in May 2020 for hemoglobin 6.5 g and anemia work-up done on May 24, 2020 shows iron saturation 6%, iron 17, TIBC 292, folate 21.4, ferritin level is not available, etiology could be iron malabsorption or chronic/intermittent GI blood loss, probably from upper GI tract or small bowel as colonoscopy done 3 years ago, as per patient it was unremarkable Splenomegaly, with subcentimeter central lymphadenopathy, etiology unclear could be due to lymphoproliferative disorder Left upper abdominal fullness/pain probably due to splenomegaly Started on weekly Rituxan on September 02, 2020, as her hepatitis profile was negative History of hyperlipidemia, osteopenia Plan: Discussed with patient regarding her labs white blood count 5.8 hemoglobin 11.7 compared to 12.5 previously hematocrit 36.1 platelets 208,000 CMP within normal limits Clinically, patient doing well with no new signs symptom suggestive of disease progression, tolerating weekly Rituxan well, will proceed with final dose of weekly Rituxan today and her follow-up CBC done today showed mild drop in her hemoglobin thus we will check her CBC CMP and LDH in a month if hemoglobin is stable or improved then will consider follow-up with 3 months with CBC CMP and LDH and abdominal sonogram to assess spleen size. Return to clinic in 1 month with CBC CMP and LDH Signed By: Alex Jha M.D. <<Signature on File>>
== END 2020-10-12 23:59 | disposition home or self-care (01) ==
LOC: ONCMED 05:39
PROVIDERS: PCP Nurse Practitioner Family; Visit Provider Internal Medicine Hematology & Oncology
DX: Z51.12 Encounter for antineoplastic immunotherapy (principal); C83.07 Small cell B-cell lymphoma, spleen; D50.9 Iron deficiency anemia, unspecified; R16.1 Splenomegaly, not elsewhere classified; E78.5 Hyperlipidemia, unspecified; M85.80 Other specified disorders of bone density and structure, unspecified site; Z79.899 Other long term (current) drug therapy
CPT/HCPCS: 36415; 71250; 74150; 80053; 83615; 83883; 84155; 84165; 85025; 96375; 96413; 96415; 99215; J1200; J7040; J9312

== ENCOUNTER 2020-11-12 09:00 | Outpatient (CLI) | payer MEDICARE, SELFPAY ==
[2020-11-12 10:13] LABS: Basophils # 0.1 10^3/uL (0.0-0.1); Basophils % 1.9 %; Eosinophils # 0.1 10^3/uL (0.0-0.8); Eosinophils % 3.2 %; Hematocrit 34.4 % (37.0-47.0); Hemoglobin 11.6 g/dL (11.5-15.3); Lymphocytes # 1.1 10^3/uL (0.8-4.8); Lymphocytes % 36.6 %; Mean Corpuscular HGB Conc 33.7 g/dL (30.0-36.0); Mean Corpuscular Hemoglobin 28.8 pg (28.0-34.0); Mean Corpuscular Volume 85.4 fl (81-99); Mean Platelet Volume 10.6 fL (7.4-10.4); Monocytes # 0.4 10^3/uL (0.2-0.9); Neutrophils % 45.3 %; Nucleated Red Blood Cells % 0 %; Platelet Count 214 10^3/cmm (130-400); Red Blood Count 4.03 10^6/uL (4.1-5.3); Red Cell Distribution Width 14.9 % (12.1-15.1); White Blood Count 3.1 10^3/uL (4.0-10.0)
[2020-11-12 10:44] LABS: Alanine Aminotransferase 10 U/L (0-33); Albumin Level 4.3 g/dL (3.5-5.2); Alkaline Phosphatase 70 IU/L (35-105); Aspartate Amino Transferase 20 U/L (0-32); Blood Urea Nitrogen 20 mg/dL (8-23); Calcium 9.6 mg/dL (8.5-10.5); Carbon Dioxide 24 mmol/L (22-29); Chloride 103 mmol/L (98-107); Globulin 2.1 g/dL (1.3-4.6); Glucose 75 mg/dL (65-115); Osmolality Calculated 285 mOsm/kg (285-295); Sodium 137 mmol/L (136-145); Total Bilirubin 0.9 mg/dL (0.15-1.2); Total Protein 6.4 g/dL (6.6-8.7)
[2020-11-12 10:48] LABS: Anion Gap 14.1 (5-19); Lactate Dehydrogenase 248 U/L (135-214); Potassium 4.1 mmol/L (3.5-5.1)
--- NOTE | 2020-11-12 11:18 | ONC FU_ITS ---
Dr. Jha follow up note Patient: Prabha De Unit #: [id number]: 1945 Dicatated By: Alex Jha M.D.Date of Visit:Nov 12, 2020 Onc Med Follow-up/Prog Note History of Present Illness: Ms. Prabha De, is a 75-year-old female with history of mild anemia since 2018, as per patient in the beginning her hemoglobin would stay between 11 to 12 g but then gradually start decreasing and used to respond to oral iron which she has been taking for the last 2 years, despite of that her hemoglobin continue to drop slowly but gradually until about 2 weeks ago when she started feeling weak and tired and lightheaded and her CBC done showed hemoglobin around 6.5 g, patient was given 2 units of packed RBCs with that her hemoglobin improved to 8.5 g and she continue to take oral iron but now started having nausea and indigestion and abdominal pain, as per patient she had Hemoccult stool done which showed no evidence of bleeding and she had a colonoscopy done [address] Thapa and she was told it was unremarkable but never had EGD done before. As per patient last year she felt fullness in her left upper abdomen for which she underwent CT scan of abdomen on September 24, 2019 which showed splenomegaly and her repeat CT scan of chest abdomen pelvis done on June 02, 2020 showed progressive enlargement of spleen since September 24, 2019 now measures 17.3 cm. There are several small mediastinal hilar abdominal lymph nodes but these are less than centimeter and slightly increased in number. No pulmonary mass or nodule seen. Right inguinal hernia containing loop of small bowel with no obstruction at this time. Large hiatal hernia. Patient is also complaining of drenching night sweating for the last many months now progressive and also complaining of over 10 pound weight loss since last spring when she used to weigh around 124 pounds now down to 214, denies any recurrent fevers. 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 No overt dyspoietic or megaloblastic changes seen. No circulating blast cells identified. Severe hypochromic normocytic anemia., B-cell population is negative for CD5, CD10 as well as hairy cell markers, so nonspecific phenotypic features but also appears to be a component of increased plasma cells and possibly plasmacytoid lymphocytes. 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 And differential also include involvement by marginal zone lymphoma with plasmacytic differentiation versus lymphoplasmacytic lymphoma., Cytogenetic positive for deletion of 6 q. which is observed and chronic lymphocytic leukemia and also an lymphoplasmacytic lymphoma Molecular analysis for MYD 88 mutation, was recommended and has been ordered. 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 Low-attenuation stable 10 mm nodule in the superior right lobe of the liver., Small mediastinal and hilar lymph nodes are similar to prior study. Came for follow-up, denies any specific complaints, no fever chills, no nausea or vomiting, no diarrhea constipation, no abdominal pain, no abdominal fullness, no night sweats, no recurrent fever, no weight loss. No peripheral lymphadenopathy Medications: Acetaminophen 1 Each (of 500 mg) Tablet Oral daily, Allopurinol 1 Each (of 100 mg) Tablet Oral ac (bid) Allergies: Iodine Review of Systems: Review of Systems is not available for this patient. Vital Signs: Vitals are not available for this patient. Performance Status: 0 - Fully active, able to carry on all predisease activities without restrictions. (ECOG) Physical Examination: ENMT - No mouth sores, no thrush, no jaundice no cervical lymphadenopathy, Respiratory - Lungs are clear to auscultation, Cardiovascular - Regular rate and rhythm of heart , Abdomen - Soft, bowel sounds present, No organomegaly or splenomegaly, Extremities - No visible edema. Lab/Imaging: Most recent lab results are not available for this patient. Impression: Marginal zone lymphoma (splenic )with plasmacytic differentiation as MYD 88 is negative, bone marrow evaluation done on July 15, 2020 showed 50 to 70% bone marrow involvement with small B cell neoplasm, no increased blast cells seen, no dyspoietic pharmacologic changes seen. No amyloid material identified., Also seen component of increased plasma cell and possibly plasmacytoid lymphocytes. 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 The differential includes involvement by marginal zone lymphoma with plasmacytic differentiation versus lymphoplasmacytic lymphoma Monotypic B-cell population detected per whole blood flow cytometry done on June 14, 2020 SPEP confirmed faint restricted band migrating in the gamma region, immunofixation confirmed IgM lambda monoclonal band, serum light chain assay shows kappa 7.5, lambda 1416.4 kappa/lambda ratio 0.01 Iron deficiency anemia status post 2 units of packed RBC done in May 2020 for hemoglobin 6.5 g and anemia work-up done on May 24, 2020 shows iron saturation 6%, iron 17, TIBC 292, folate 21.4, ferritin level is not available, etiology could be iron malabsorption or chronic/intermittent GI blood loss, probably from upper GI tract or small bowel as colonoscopy done 3 years ago, as per patient it was unremarkable Splenomegaly, with subcentimeter central lymphadenopathy, etiology unclear could be due to lymphoproliferative disorder Left upper abdominal fullness/pain probably due to splenomegaly Started on weekly Rituxan on September 02, 2020, as her hepatitis profile was negative History of hyperlipidemia, osteopenia Plan: Discussed with patient regarding her labs white blood count 3.1 compared to 5.8 on October 05, 2020 hemoglobin 11.6 g compared to 11.7 g previously platelets 214,000 ANC 1400 CMP within normal limits LDH 248 compared to 162 previously Clinically, patient doing well with no new signs symptoms, no B symptoms, no evidence of peripheral lymphadenopathy or organomegaly on exam but her follow-up CBC shows mild leukopenia/neutropenia otherwise normal hemoglobin and platelet count, her lab work-up also shows progressive LDH level, concern is whether due to progressive lymphoproliferative disorder, at this point, will repeat her CBC and exam in 1 month, if there is a further worsening of mild leukopenia/neutropenia or anemia or physical symptoms like abdominal fullness, will consider abdominal sonogram to check spleen size. Signed By: Alex Jha M.D. <<Signature on File>>
== END 2020-11-12 09:01 | disposition home or self-care (01) ==
LOC: ONCMED 09:02
PROVIDERS: PCP Nurse Practitioner Family; Visit Provider Internal Medicine Hematology & Oncology
DX: C83.07 Small cell B-cell lymphoma, spleen (principal); D50.9 Iron deficiency anemia, unspecified; R16.1 Splenomegaly, not elsewhere classified
CPT/HCPCS: 36415; 80053; 83615; 85025; 99214

== ENCOUNTER 2020-12-23 11:29 | Outpatient (CLI) | payer MEDICARE, SELFPAY ==
[2020-12-23 11:52] LABS: Basophils % 1.1 %; Eosinophils % 0.9 %; Hematocrit 34.3 % (37.0-47.0); Hemoglobin 11.8 g/dL (11.5-15.3); Lymphocytes # 1.3 10^3/uL (0.8-4.8); Lymphocytes % 37.1 %; Mean Corpuscular HGB Conc 34.4 g/dL (30.0-36.0); Mean Corpuscular Hemoglobin 29.1 pg (28.0-34.0); Mean Corpuscular Volume 84.7 fl (81-99); Mean Platelet Volume 9.4 fL (7.4-10.4); Monocytes # 1.2 10^3/uL (0.2-0.9); Monocytes % 34.9 %; Nucleated Red Blood Cells % 0 %; Platelet Count 249 10^3/cmm (130-400); Red Blood Count 4.05 10^6/uL (4.1-5.3); Red Cell Distribution Width 12.1 % (12.1-15.1); White Blood Count 3.5 10^3/uL (4.0-10.0)
[2020-12-23 11:58] LABS: Neutrophils # 0.84 10^3/uL (1.8-7.7)
[2020-12-23 12:24] LABS: Alanine Aminotransferase 34 U/L (0-33); Albumin Level 4.2 g/dL (3.5-5.2); Alkaline Phosphatase 146 IU/L (35-105); Anion Gap 16.3 (5-19); Aspartate Amino Transferase 41 U/L (0-32); Blood Urea Nitrogen 19 mg/dL (8-23); Calcium 9.6 mg/dL (8.5-10.5); Carbon Dioxide 24 mmol/L (22-29); Chloride 101 mmol/L (98-107); Globulin 2.8 g/dL (1.3-4.6); Glucose 73 mg/dL (65-115); Lactate Dehydrogenase 222 U/L (135-214); Osmolality Calculated 285 mOsm/kg (285-295); Potassium 4.3 mmol/L (3.5-5.1); Sodium 137 mmol/L (136-145); Total Bilirubin 0.7 mg/dL (0.15-1.2)
[2020-12-23 15:07] LABS: Protein Urine 1+ (Negative); Urine Appearance Hazy (CLEAR); Urine Color Yellow (Yellow); pH Urine 5 (5-7)
[2020-12-23 15:08] LABS: Add Urine Microscopic? YES; Bilirubin Urine 1+ (Negative); Blood Urine 3+ (Negative); Glucose Urine UA Norm (Normal); Ketones Urine 1+ (Negative); Leukocyte Esterase Urine Trace (Negative); Nitrate Urine Negative (Negative); RBC Urine 25-40 /hpf (0-2); Urobilinogen Urine 4 mg/dL (Negative)
[2020-12-23 15:09] LABS: Mucus Urine 1+ /hpf; Transitional Epi Cells Urine 0-4 /hpf; WBC Urine 0-4 /hpf (0-5)
[2020-12-23 15:10] LABS: Add Urine Culture? No; Bacteria Urine TRACE /hpf
--- NOTE | 2020-12-31 11:43 | ONC FU_ITS ---
Dr. Jha follow up note Patient: Prabha De Unit #: [id number]: 1945 Dicatated By: Alex Jha M.D.Date of Visit:Dec 23, 2020 Onc Med Follow-up/Prog Note History of Present Illness: Ms. Prabha De, is a 75-year-old female with history of mild anemia since 2018, as per patient in the beginning her hemoglobin would stay between 11 to 12 g but then gradually start decreasing and used to respond to oral iron which she has been taking for the last 2 years, despite of that her hemoglobin continue to drop slowly but gradually until about 2 weeks ago when she started feeling weak and tired and lightheaded and her CBC done showed hemoglobin around 6.5 g, patient was given 2 units of packed RBCs with that her hemoglobin improved to 8.5 g and she continue to take oral iron but now started having nausea and indigestion and abdominal pain, as per patient she had Hemoccult stool done which showed no evidence of bleeding and she had a colonoscopy done [address] Thapa and she was told it was unremarkable but never had EGD done before. As per patient last year she felt fullness in her left upper abdomen for which she underwent CT scan of abdomen on September 24, 2019 which showed splenomegaly and her repeat CT scan of chest abdomen pelvis done on June 02, 2020 showed progressive enlargement of spleen since September 24, 2019 now measures 17.3 cm. There are several small mediastinal hilar abdominal lymph nodes but these are less than centimeter and slightly increased in number. No pulmonary mass or nodule seen. Right inguinal hernia containing loop of small bowel with no obstruction at this time. Large hiatal hernia. Patient is also complaining of drenching night sweating for the last many months now progressive and also complaining of over 10 pound weight loss since last spring when she used to weigh around 124 pounds now down to 214, denies any recurrent fevers. 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 No overt dyspoietic or megaloblastic changes seen. No circulating blast cells identified. Severe hypochromic normocytic anemia., B-cell population is negative for CD5, CD10 as well as hairy cell markers, so nonspecific phenotypic features but also appears to be a component of increased plasma cells and possibly plasmacytoid lymphocytes. 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 And differential also include involvement by marginal zone lymphoma with plasmacytic differentiation versus lymphoplasmacytic lymphoma., Cytogenetic positive for deletion of 6 q. which is observed and chronic lymphocytic leukemia and also an lymphoplasmacytic lymphoma Molecular analysis for MYD 88 mutation, was recommended and has been ordered. 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 Low-attenuation stable 10 mm nodule in the superior right lobe of the liver., Small mediastinal and hilar lymph nodes are similar to prior study. Came for follow-up, complaining of left lower quadrant discomfort/pain for the last week or 10 days, also having off and on low-grade fever but no night sweats, no weight loss, no upper abdominal fullness, no nausea or vomiting, no peripheral lymphadenopathy, no dysuria or hematuria. Patient has history of recurrent urine tract infection in the past Medications: Acetaminophen 1 Each (of 500 mg) Tablet Oral daily Allergies: Iodine Review of Systems: Review of Systems is not available for this patient. Vital Signs: Performed on Dec 23, 2020 13:45 Height - 62.00 in Weight - 109.2 lbs (LOW) BSA - 1.48 sq.m BMI - 19.97 Temperature - 98.0 F (LOW) Pulse - 98 /min Respiration - 18 /min BP - 138/72 mm(hg) O2 Sat - 99 % Pain - 3 Fatigue - 1 Performance Status: 1 - No physically strenuous activity, but ambulatory and able to carry out light or sedentary work (e.g. office work, light house work). (ECOG) Physical Examination: ENMT - No mouth sores, no thrush, no jaundice no cervical lymphadenopathy, Respiratory - Lungs are clear to auscultation, Cardiovascular - Regular rate and rhythm of heart, Abdomen - Soft, bowel sounds present, mild tenderness in the left lower quadrant but no rebound tenderness no mass palpable, Extremities - No visible edema. Lab/Imaging: Most recent lab results are not available for this patient. Impression: Marginal zone lymphoma (splenic )with plasmacytic differentiation as MYD 88 is negative, bone marrow evaluation done on July 15, 2020 showed 50 to 70% bone marrow involvement with small B cell neoplasm, no increased blast cells seen, no dyspoietic pharmacologic changes seen. No amyloid material identified., Also seen component of increased plasma cell and possibly plasmacytoid lymphocytes. 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 The differential includes involvement by marginal zone lymphoma with plasmacytic differentiation versus lymphoplasmacytic lymphoma Monotypic B-cell population detected per whole blood flow cytometry done on June 14, 2020 SPEP confirmed faint restricted band migrating in the gamma region, immunofixation confirmed IgM lambda monoclonal band, serum light chain assay shows kappa 7.5, lambda 1416.4 kappa/lambda ratio 0.01 Iron deficiency anemia status post 2 units of packed RBC done in May 2020 for hemoglobin 6.5 g and anemia work-up done on May 24, 2020 shows iron saturation 6%, iron 17, TIBC 292, folate 21.4, ferritin level is not available, etiology could be iron malabsorption or chronic/intermittent GI blood loss, probably from upper GI tract or small bowel as colonoscopy done 3 years ago, as per patient it was unremarkable Splenomegaly, with subcentimeter central lymphadenopathy, etiology unclear could be due to lymphoproliferative disorder Left upper abdominal fullness/pain probably due to splenomegaly Started on weekly Rituxan on September 02, 2020, as her hepatitis profile was negative History of hyperlipidemia, osteopenia Plan: Discussed with patient regarding her labs white blood count 3.5 hemoglobin 11.8 g hematocrit 34.3 platelets 249,000 absolute neutrophil count 840 CMP within normal limits except ALT 34 AST 41 alk phos 146, her LDH is 222 compared to 48 previously Clinically, patient is doing reasonably well now with left lower quadrant pain/discomfort and low-grade fever, patient has history of recurrent urine tract infection in the past, at this point will check a urinalysis and also start her on oral antibiotics ciprofloxacin 5 mg p.o. twice daily as her CBC shows progressive mild neutropenia. And other concern is abnormal LFTs, could be due to infection, will do abdominal sonogram and then she will return to clinic in 1 week with abdominal sonogram and CBC and CMP, patient was advised in case there is a worsening of symptoms she need to go to [facility] [place] [facility] for evaluation. Signed By: Alex Jha M.D. <<Signature on File>>
== END 2020-12-23 11:30 | disposition home or self-care (01) ==
LOC: ONCMED 11:31
PROVIDERS: PCP Nurse Practitioner Family; Visit Provider Internal Medicine Hematology & Oncology
DX: C83.07 Small cell B-cell lymphoma, spleen (principal); D50.9 Iron deficiency anemia, unspecified
CPT/HCPCS: 36415; 80053; 81001; 83615; 85025; 99214

== ENCOUNTER 2020-12-30 06:32 | Outpatient (CLI) | payer MEDICARE, SELFPAY ==
[2020-12-30 08:28] LABS: Basophils # 0.1 10^3/uL (0.0-0.1); Eosinophils % 1.2 %; Hematocrit 35.6 % (37.0-47.0); Lymphocytes # 1.3 10^3/uL (0.8-4.8); Mean Corpuscular HGB Conc 33.7 g/dL (30.0-36.0); Mean Corpuscular Hemoglobin 28.6 pg (28.0-34.0); Mean Platelet Volume 9.6 fL (7.4-10.4); Monocytes # 0.4 10^3/uL (0.2-0.9); Monocytes % 11.9 %; Neutrophils # 1.49 10^3/uL (1.8-7.7); Neutrophils % 44.3 %; Nucleated Red Blood Cells % 0 %; Platelet Count 290 10^3/cmm (130-400); Red Blood Count 4.19 10^6/uL (4.1-5.3); White Blood Count 3.4 10^3/uL (4.0-10.0)
[2020-12-30 08:50] LABS: Alanine Aminotransferase 14 U/L (0-33); Albumin Level 4.3 g/dL (3.5-5.2); Alkaline Phosphatase 113 IU/L (35-105); Anion Gap 16.2 (5-19); Aspartate Amino Transferase 20 U/L (0-32); Blood Urea Nitrogen 18 mg/dL (8-23); Calcium 9.2 mg/dL (8.5-10.5); Carbon Dioxide 24 mmol/L (22-29); Chloride 105 mmol/L (98-107); Globulin 2.4 g/dL (1.3-4.6); Glucose 80 mg/dL (65-115); Osmolality Calculated 293 mOsm/kg (285-295); Potassium 4.2 mmol/L (3.5-5.1); Sodium 141 mmol/L (136-145); Total Bilirubin 0.6 mg/dL (0.15-1.2); Total Protein 6.7 g/dL (6.6-8.7)
--- NOTE | 2020-12-30 16:48 | ONC FU_ITS ---
Dr. Jha follow up note Patient: Prabha De Unit #: [id number]: 1945 Dicatated By: Alex Jha M.D.Date of Visit:Dec 30, 2020 Onc Med Follow-up/Prog Note History of Present Illness: Ms. Prabha De, is a 75-year-old female with history of mild anemia since 2018, as per patient in the beginning her hemoglobin would stay between 11 to 12 g but then gradually start decreasing and used to respond to oral iron which she has been taking for the last 2 years, despite of that her hemoglobin continue to drop slowly but gradually until about 2 weeks ago when she started feeling weak and tired and lightheaded and her CBC done showed hemoglobin around 6.5 g, patient was given 2 units of packed RBCs with that her hemoglobin improved to 8.5 g and she continue to take oral iron but now started having nausea and indigestion and abdominal pain, as per patient she had Hemoccult stool done which showed no evidence of bleeding and she had a colonoscopy done [address] Thapa and she was told it was unremarkable but never had EGD done before. As per patient last year she felt fullness in her left upper abdomen for which she underwent CT scan of abdomen on September 24, 2019 which showed splenomegaly and her repeat CT scan of chest abdomen pelvis done on June 02, 2020 showed progressive enlargement of spleen since September 24, 2019 now measures 17.3 cm. There are several small mediastinal hilar abdominal lymph nodes but these are less than centimeter and slightly increased in number. No pulmonary mass or nodule seen. Right inguinal hernia containing loop of small bowel with no obstruction at this time. Large hiatal hernia. Patient is also complaining of drenching night sweating for the last many months now progressive and also complaining of over 10 pound weight loss since last spring when she used to weigh around 124 pounds now down to 214, denies any recurrent fevers. 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 No overt dyspoietic or megaloblastic changes seen. No circulating blast cells identified. Severe hypochromic normocytic anemia., B-cell population is negative for CD5, CD10 as well as hairy cell markers, so nonspecific phenotypic features but also appears to be a component of increased plasma cells and possibly plasmacytoid lymphocytes. 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 And differential also include involvement by marginal zone lymphoma with plasmacytic differentiation versus lymphoplasmacytic lymphoma., Cytogenetic positive for deletion of 6 q. which is observed and chronic lymphocytic leukemia and also an lymphoplasmacytic lymphoma Molecular analysis for MYD 88 mutation, was recommended and has been ordered. 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 Low-attenuation stable 10 mm nodule in the superior right lobe of the liver., Small mediastinal and hilar lymph nodes are similar to prior study. Came for follow-up, denies any specific complaints, more energetic, no fever chills, no nausea or vomiting, no diarrhea constipation, as per patient since her last visit she was diagnosed with urine tract infection and was given oral antibiotic with that her infection resolved and she felt much better. Denies any night sweats denies any recurrent fever denies any weight loss denies any abdominal fullness denies any dysuria or hematuria Medications: Acetaminophen 1 Each (of 500 mg) Tablet Oral daily Allergies: Iodine Review of Systems: Review of Systems is not available for this patient. Vital Signs: Performed on Dec 30, 2020 10:20 Height - 62.00 in Weight - 111.4 lbs (HIGH) BSA - 1.49 sq.m BMI - 20.38 Temperature - 98.2 F (LOW) Pulse - 84 /min Respiration - 16 /min BP - 157/82 mm(hg) (HIGH) O2 Sat - 100 % Pain - 0 Fatigue - 0 Performance Status: 0 - Fully active, able to carry on all predisease activities without restrictions. (ECOG) Physical Examination: ENMT - No mouth sores, no thrush, no jaundice, Respiratory - Lungs are clear to auscultation, Cardiovascular - Regular rate and rhythm of heart, Abdomen - Soft, bowel sounds present, Extremities - No visible edema. Lab/Imaging: Most recent lab results are not available for this patient. Impression: Marginal zone lymphoma (splenic )with plasmacytic differentiation as MYD 88 is negative, bone marrow evaluation done on July 15, 2020 showed 50 to 70% bone marrow involvement with small B cell neoplasm, no increased blast cells seen, no dyspoietic pharmacologic changes seen. No amyloid material identified., Also seen component of increased plasma cell and possibly plasmacytoid lymphocytes. 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 The differential includes involvement by marginal zone lymphoma with plasmacytic differentiation versus lymphoplasmacytic lymphoma Monotypic B-cell population detected per whole blood flow cytometry done on June 14, 2020 SPEP confirmed faint restricted band migrating in the gamma region, immunofixation confirmed IgM lambda monoclonal band, serum light chain assay shows kappa 7.5, lambda 1416.4 kappa/lambda ratio 0.01 Iron deficiency anemia status post 2 units of packed RBC done in May 2020 for hemoglobin 6.5 g and anemia work-up done on May 24, 2020 shows iron saturation 6%, iron 17, TIBC 292, folate 21.4, ferritin level is not available, etiology could be iron malabsorption or chronic/intermittent GI blood loss, probably from upper GI tract or small bowel as colonoscopy done 3 years ago, as per patient it was unremarkable Splenomegaly, with subcentimeter central lymphadenopathy, etiology unclear could be due to lymphoproliferative disorder Left upper abdominal fullness/pain probably due to splenomegaly Started on weekly Rituxan on September 02, 2020, as her hepatitis profile was negative History of hyperlipidemia, osteopenia Plan: Discussed with patient regarding her labs white blood count 3.4 compared to 3.5 previously hemoglobin 12 compared to 11.8 previously hematocrit 35.6 platelets 290,000 ANC 1490 compared to 840 previously Clinically, patient doing well, with no B symptoms, no organomegaly or lymphadenopathy her follow-up CBC shows improvement in her absolute neutrophil count while persistent mild leukopenia and there is a further improvement in her hemoglobin too., Patient said she was diagnosed with urine tract infection and treated with oral antibiotic and felt much better so there is a good possibility her absolute neutrophil count may have gone down due to recent urine tract infection, which was treated with oral antibiotic and her symptoms have resolved and now her follow-up CBC shows improvement too At this point , we will continue to monitor and she will return to clinic in 1 month with CBC Signed By: Alex Jha M.D. <<Signature on File>>
== END 2020-12-30 06:33 | disposition home or self-care (01) ==
LOC: ONCMED 06:33
PROVIDERS: PCP Nurse Practitioner Family; Visit Provider Internal Medicine Hematology & Oncology
DX: Z08 Encounter for follow-up examination after completed treatment for malignant neoplasm (principal); Z85.72 Personal history of non-Hodgkin lymphomas; D50.9 Iron deficiency anemia, unspecified; R16.1 Splenomegaly, not elsewhere classified; E78.5 Hyperlipidemia, unspecified; M85.80 Other specified disorders of bone density and structure, unspecified site; Z79.899 Other long term (current) drug therapy; Z92.21 Personal history of antineoplastic chemotherapy
CPT/HCPCS: 36415; 80053; 85025; 99214

== ENCOUNTER 2021-01-19 08:42 | Outpatient (CLI) | payer MEDICARE, SELFPAY ==
--- NOTE | 2021-01-19 08:53 | US_ITS ---
WS: [id number] ULTRASOUND ABDOMEN CLINICAL INFORMATION: SMALL CELL B CELL LYMPHOMA COMPARISON: None. FINDINGS: Liver Size: Normal. Craniocaudal length: 12.3 cm. Echogenicity: Normal. Surface nodularity: None. Mass (size and location): None. Bile ducts Intrahepatic ducts: Normal. Common bile duct diameter: 0.3 cm. Gallbladder Normal. Gallstones: None. Gallbladder sludge: None. Gallbladder wall thickening: None. Pericholecystic fluid: None. Sonographic Rowland sign: Absent. Pancreas Normal as visualized. Spleen Splenomegaly: Mild Small accessory spleen measuring 1.2 x 1.4 x 1.3 cm Craniocaudal length: 12.4 cm. Right kidney: Normal. Hydronephrosis: None. Size: 9.7 cm x 3.6 cm x 3.9 cm Left kidney: Normal. Hydronephrosis: None. Size: 9.4 cm x 3.9 cm x 4.1 cm. Abdominal aorta and IVC Visualized portions are normal. Ascites: None. US/US abdomen complete* [id number] IMPRESSION: 1. Normal liver and gallbladder. 2. Normal common bile duct. 3. No hydronephrosis in either kidney. 4. Mild splenomegaly measuring 12.4 cm. Small accessory spleen.
== END 2021-01-19 08:43 | disposition home or self-care (01) ==
LOC: RAD 08:45
PROVIDERS: PCP Nurse Practitioner Family; Visit Provider Internal Medicine Hematology & Oncology
DX: C83.07 Small cell B-cell lymphoma, spleen (principal); R16.1 Splenomegaly, not elsewhere classified
CPT/HCPCS: 76700

== ENCOUNTER 2021-01-24 13:17 | Outpatient (CLI) | payer MEDICARE, SELFPAY ==
[2021-01-24 13:46] LABS: Basophils # 0.1 10^3/uL (0.0-0.1); Basophils % 1.3 %; Eosinophils # 0.3 10^3/uL (0.0-0.8); Eosinophils % 3.1 %; Hematocrit 37.3 % (37.0-47.0); Hemoglobin 12.4 g/dL (11.5-15.3); Lymphocytes # 1.8 10^3/uL (0.8-4.8); Lymphocytes % 22.1 %; Mean Corpuscular HGB Conc 33.2 g/dL (30.0-36.0); Mean Corpuscular Hemoglobin 28.1 pg (28.0-34.0); Mean Corpuscular Volume 84.6 fl (81-99); Mean Platelet Volume 10.4 fL (7.4-10.4); Monocytes # 0.6 10^3/uL (0.2-0.9); Monocytes % 7.3 %; Neutrophils # 5.26 10^3/uL (1.8-7.7); Neutrophils % 65.7 %; Nucleated Red Blood Cells % 0 %; Platelet Count 192 10^3/cmm (130-400); Red Blood Count 4.41 10^6/uL (4.1-5.3); Red Cell Distribution Width 12.6 % (12.1-15.1)
== END 2021-01-24 13:18 | disposition home or self-care (01) ==
LOC: ONCMED 13:20
PROVIDERS: PCP Nurse Practitioner Family; Visit Provider Internal Medicine Hematology & Oncology
DX: C83.07 Small cell B-cell lymphoma, spleen (principal)
CPT/HCPCS: 36415; 85025

== ENCOUNTER 2021-01-27 06:33 | Outpatient (CLI) | payer MEDICARE, SELFPAY ==
--- NOTE | 2021-01-27 09:16 | ONC FU_ITS ---
Dr. Jha follow up note Patient: Prabha De Unit #: [id number]: 1945 Dicatated By: Alex Jha M.D.Date of Visit:Jan 27, 2021 Onc Med Follow-up/Prog Note History of Present Illness: Ms. Prabha De, is a 75-year-old female with history of mild anemia since 2018, as per patient in the beginning her hemoglobin would stay between 11 to 12 g but then gradually start decreasing and used to respond to oral iron which she has been taking for the last 2 years, despite of that her hemoglobin continue to drop slowly but gradually until about 2 weeks ago when she started feeling weak and tired and lightheaded and her CBC done showed hemoglobin around 6.5 g, patient was given 2 units of packed RBCs with that her hemoglobin improved to 8.5 g and she continue to take oral iron but now started having nausea and indigestion and abdominal pain, as per patient she had Hemoccult stool done which showed no evidence of bleeding and she had a colonoscopy done [address] Thapa and she was told it was unremarkable but never had EGD done before. As per patient last year she felt fullness in her left upper abdomen for which she underwent CT scan of abdomen on September 24, 2019 which showed splenomegaly and her repeat CT scan of chest abdomen pelvis done on June 02, 2020 showed progressive enlargement of spleen since September 24, 2019 now measures 17.3 cm. There are several small mediastinal hilar abdominal lymph nodes but these are less than centimeter and slightly increased in number. No pulmonary mass or nodule seen. Right inguinal hernia containing loop of small bowel with no obstruction at this time. Large hiatal hernia. Patient is also complaining of drenching night sweating for the last many months now progressive and also complaining of over 10 pound weight loss since last spring when she used to weigh around 124 pounds now down to 214, denies any recurrent fevers. 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 No overt dyspoietic or megaloblastic changes seen. No circulating blast cells identified. Severe hypochromic normocytic anemia., B-cell population is negative for CD5, CD10 as well as hairy cell markers, so nonspecific phenotypic features but also appears to be a component of increased plasma cells and possibly plasmacytoid lymphocytes. 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 And differential also include involvement by marginal zone lymphoma with plasmacytic differentiation versus lymphoplasmacytic lymphoma., Cytogenetic positive for deletion of 6 q. which is observed and chronic lymphocytic leukemia and also an lymphoplasmacytic lymphoma Molecular analysis for MYD 88 mutation, was recommended and has been ordered. 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 Low-attenuation stable 10 mm nodule in the superior right lobe of the liver., Small mediastinal and hilar lymph nodes are similar to prior study. Follow-up abdominal sonogram done on January 19, 2021 showed mildl splenomegaly size about 12.4 cm compared to 13.1 cm post Rituxan treatment, and small accessory spleen. Normal liver and gallbladder. Came for follow-up, denies any specific complaints, no fever chills, no nausea or vomiting, no diarrhea or constipation, no night sweats, no recurrent fever, no abdominal fullness, no peripheral lymphadenopathy, overall feeling well, energetic, no dysuria or hematuria. Medications: Acetaminophen 1 Each (of 500 mg) Tablet Oral daily Allergies: Iodine Review of Systems: Review of Systems is not available for this patient. Vital Signs: Performed on Jan 27, 2021 08:04 Height - 62.00 in Weight - 111.0 lbs (LOW) BSA - 1.49 sq.m BMI - 20.30 Temperature - 97.7 F (LOW) Pulse - 81 /min Respiration - 16 /min BP - 133/75 mm(hg) O2 Sat - 98 % Pain - 0 Fatigue - 3 Performance Status: 0 - Fully active, able to carry on all predisease activities without restrictions. (ECOG) Physical Examination: ENMT - No mouth sores, no thrush, no jaundice, no cervical or axillary lymphadenopathy, Respiratory - Lungs are clear to auscultation, Cardiovascular - Regular rate and rhythm of heart, Abdomen - Soft, bowel sounds present, No splenomegaly, Extremities - No visible edema. Lab/Imaging: Most recent lab results are not available for this patient. Impression: Marginal zone lymphoma (splenic )with plasmacytic differentiation as MYD 88 is negative, bone marrow evaluation done on July 15, 2020 showed 50 to 70% bone marrow involvement with small B cell neoplasm, no increased blast cells seen, no dyspoietic pharmacologic changes seen. No amyloid material identified., Also seen component of increased plasma cell and possibly plasmacytoid lymphocytes. 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 The differential includes involvement by marginal zone lymphoma with plasmacytic differentiation versus lymphoplasmacytic lymphoma Monotypic B-cell population detected per whole blood flow cytometry done on June 14, 2020 SPEP confirmed faint restricted band migrating in the gamma region, immunofixation confirmed IgM lambda monoclonal band, serum light chain assay shows kappa 7.5, lambda 1416.4 kappa/lambda ratio 0.01 Iron deficiency anemia status post 2 units of packed RBC done in May 2020 for hemoglobin 6.5 g and anemia work-up done on May 24, 2020 shows iron saturation 6%, iron 17, TIBC 292, folate 21.4, ferritin level is not available, etiology could be iron malabsorption or chronic/intermittent GI blood loss, probably from upper GI tract or small bowel as colonoscopy done 3 years ago, as per patient it was unremarkable Splenomegaly, with subcentimeter central lymphadenopathy, etiology unclear could be due to lymphoproliferative disorder Left upper abdominal fullness/pain probably due to splenomegaly Started on weekly Rituxan on September 02, 2020, as her hepatitis profile was negative History of hyperlipidemia, osteopenia Plan: Discussed with patient regarding her labs white blood count 8000 compared to 3400 on December 30, 2020 hemoglobin 12.4 hematocrit 37.3 platelets 192,000 with a normal differential and follow-up abdominal sonogram shows mild splenomegaly but improvement when compared with also Rituxan therapy scan, now 12.4 cm compared to 13.1 cm previously. Her follow-up lab work-up shows resolution of mild leukopenia which could be due to urine tract infection. At this point, will continue to observe and she will return to clinic in 3 months with CBC CMP and LDH, patient was advised to call us in case she has any recurrent fever, night sweats or weight loss or any abdominal fullness or peripheral lymphadenopathy. Otherwise return to clinic in 3 months as mentioned above Signed By: Alex Jha M.D. <<Signature on File>>
== END 2021-01-27 06:34 | disposition home or self-care (01) ==
LOC: ONCMED 06:34
PROVIDERS: PCP Nurse Practitioner Family; Visit Provider Internal Medicine Hematology & Oncology
DX: Z51.12 Encounter for antineoplastic immunotherapy (principal); C83.07 Small cell B-cell lymphoma, spleen
CPT/HCPCS: 99214

== ENCOUNTER 2021-04-27 10:54 | Outpatient (CLI) | payer MEDICARE, SELFPAY ==
[2021-04-27 11:38] LABS: Basophils # 0.1 10^3/uL (0.0-0.1); Basophils % 1.5 %; Eosinophils # 0.2 10^3/uL (0.0-0.8); Eosinophils % 3.1 %; Hematocrit 37.3 % (37.0-47.0); Hemoglobin 12.3 g/dL (11.5-15.3); Lymphocytes # 1.4 10^3/uL (0.8-4.8); Lymphocytes % 27.6 %; Mean Corpuscular Hemoglobin 28.7 pg (28.0-34.0); Mean Corpuscular Volume 86.9 fl (81-99); Mean Platelet Volume 10.2 fL (7.4-10.4); Monocytes # 0.4 10^3/uL (0.2-0.9); Monocytes % 7.1 %; Neutrophils # 3.13 10^3/uL (1.8-7.7); Neutrophils % 60.3 %; Nucleated Red Blood Cells % 0 %; Platelet Count 193 10^3/cmm (130-400); Red Blood Count 4.29 10^6/uL (4.1-5.3); Red Cell Distribution Width 13.4 % (12.1-15.1); White Blood Count 5.2 10^3/uL (4.0-10.0)
[2021-04-27 11:58] LABS: Alanine Aminotransferase 11 U/L (0-33); Albumin Level 4.9 g/dL (3.5-5.2); Alkaline Phosphatase 81 IU/L (35-105); Anion Gap 15.8 (5-19); Aspartate Amino Transferase 17 U/L (0-32); Blood Urea Nitrogen 19 mg/dL (8-23); Carbon Dioxide 22 mmol/L (22-29); Chloride 102 mmol/L (98-107); Glucose 88 mg/dL (65-115); Lactate Dehydrogenase 176 U/L (135-214); Osmolality Calculated 284 mOsm/kg (285-295); Potassium 3.8 mmol/L (3.5-5.1); Sodium 136 mmol/L (136-145); Total Protein 6.9 g/dL (6.6-8.7)
--- NOTE | 2021-04-27 17:09 | ONC FU_ITS ---
Dr. Jha follow up note Patient: Prabha De Unit #: [id number]: [id number] Dicatated By: Alex Jha M.D.Date of Visit:Apr 27, 2021 Onc Med Follow-up/Prog Note History of Present Illness: Ms. Prabha De, is a 76-year-old female with history of mild anemia since 2018, as per patient in the beginning her hemoglobin would stay between 11 to 12 g but then gradually start decreasing and used to respond to oral iron which she has been taking for the last 2 years, despite of that her hemoglobin continue to drop slowly but gradually until about 2 weeks ago when she started feeling weak and tired and lightheaded and her CBC done showed hemoglobin around 6.5 g, patient was given 2 units of packed RBCs with that her hemoglobin improved to 8.5 g and she continue to take oral iron but now started having nausea and indigestion and abdominal pain, as per patient she had Hemoccult stool done which showed no evidence of bleeding and she had a colonoscopy done [address] Thapa and she was told it was unremarkable but never had EGD done before. As per patient last year she felt fullness in her left upper abdomen for which she underwent CT scan of abdomen on September 24, 2019 which showed splenomegaly and her repeat CT scan of chest abdomen pelvis done on June 02, 2020 showed progressive enlargement of spleen since September 24, 2019 now measures 17.3 cm. There are several small mediastinal hilar abdominal lymph nodes but these are less than centimeter and slightly increased in number. No pulmonary mass or nodule seen. Right inguinal hernia containing loop of small bowel with no obstruction at this time. Large hiatal hernia. Patient is also complaining of drenching night sweating for the last many months now progressive and also complaining of over 10 pound weight loss since last spring when she used to weigh around 124 pounds now down to 214, denies any recurrent fevers. 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 No overt dyspoietic or megaloblastic changes seen. No circulating blast cells identified. Severe hypochromic normocytic anemia., B-cell population is negative for CD5, CD10 as well as hairy cell markers, so nonspecific phenotypic features but also appears to be a component of increased plasma cells and possibly plasmacytoid lymphocytes. 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 And differential also include involvement by marginal zone lymphoma with plasmacytic differentiation versus lymphoplasmacytic lymphoma., Cytogenetic positive for deletion of 6 q. which is observed and chronic lymphocytic leukemia and also an lymphoplasmacytic lymphoma Molecular analysis for MYD 88 mutation, was recommended and has been ordered. 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 Low-attenuation stable 10 mm nodule in the superior right lobe of the liver., Small mediastinal and hilar lymph nodes are similar to prior study. Follow-up abdominal sonogram done on January 19, 2021 showed mildl splenomegaly size about 12.4 cm compared to 13.1 cm post Rituxan treatment, and small accessory spleen. Normal liver and gallbladder. Came for follow-up, denies any specific complaints, no fever chills, no nausea or vomiting, no diarrhea or constipation, no melena hematochezia, no hemoptysis or hematemesis, no night sweats, no weight loss, no recurrent fever, no abdominal fullness, no peripheral lymphadenopathy, No jaundice Medications: Acetaminophen 1 Each (of 500 mg) Tablet Oral daily PRN Allergies: Iodine Review of Systems: Review of Systems is not available for this patient. Vital Signs: Performed on Apr 27, 2021 16:01 Height - 62.00 in Weight - 111.4 lbs (HIGH) BSA - 1.49 sq.m BMI - 20.38 Temperature - 98.2 F (LOW) Pulse - 89 /min Respiration - 16 /min BP - 163/78 mm(hg) (HIGH) O2 Sat - 99 % Pain - 0 Fatigue - 4 Performance Status: 0 - Fully active, able to carry on all predisease activities without restrictions. (ECOG) Physical Examination: ENMT - No mouth sores, no thrush, no jaundice, no cervical lymphadenopathy or axillary lymphadenopathy, Respiratory - Lungs are clear to auscultation, Cardiovascular - Regular rate and rhythm of heart, Abdomen - Soft, bowel sounds present, No splenomegaly, Extremities - No visible edema. Lab/Imaging: Most recent lab results are not available for this patient. Impression: Marginal zone lymphoma (splenic )with plasmacytic differentiation as MYD 88 is negative, bone marrow evaluation done on July 15, 2020 showed 50 to 70% bone marrow involvement with small B cell neoplasm, no increased blast cells seen, no dyspoietic pharmacologic changes seen. No amyloid material identified., Also seen component of increased plasma cell and possibly plasmacytoid lymphocytes. 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 The differential includes involvement by marginal zone lymphoma with plasmacytic differentiation versus lymphoplasmacytic lymphoma Monotypic B-cell population detected per whole blood flow cytometry done on June 14, 2020 SPEP confirmed faint restricted band migrating in the gamma region, immunofixation confirmed IgM lambda monoclonal band, serum light chain assay shows kappa 7.5, lambda 1416.4 kappa/lambda ratio 0.01 Iron deficiency anemia status post 2 units of packed RBC done in May 2020 for hemoglobin 6.5 g and anemia work-up done on May 24, 2020 shows iron saturation 6%, iron 17, TIBC 292, folate 21.4, ferritin level is not available, etiology could be iron malabsorption or chronic/intermittent GI blood loss, probably from upper GI tract or small bowel as colonoscopy done 3 years ago, as per patient it was unremarkable Splenomegaly, with subcentimeter central lymphadenopathy, etiology unclear could be due to lymphoproliferative disorder Left upper abdominal fullness/pain probably due to splenomegaly Started on weekly Rituxan on September 02, 2020, as her hepatitis profile was negative History of hyperlipidemia, osteopenia Plan: Discussed with patient regarding her labs white blood count 5.2 hemoglobin 12.3 g hematocrit 37.3 platelets 193,000 CMP within normal limits LDH 176 Clinically, patient doing well, no new signs symptoms history of recurrence of disease or progression as no B symptoms, no peripheral lymphadenopathy, no splenomegaly on exam, her follow-up CBC/CMP and LDH is within normal range, clinically there is no evidence of disease or progression, will continue to monitor she will return to clinic in 3 months with CBC CMP and LDH and abdominal sonogram with special attention to the spleen. Signed By: Alex Jha M.D. <<Signature on File>>
== END 2021-04-27 10:55 | disposition home or self-care (01) ==
PROVIDERS: PCP Nurse Practitioner Family; Visit Provider Internal Medicine Hematology & Oncology
DX: C83.07 Small cell B-cell lymphoma, spleen (principal); D50.9 Iron deficiency anemia, unspecified; K44.9 Diaphragmatic hernia without obstruction or gangrene
CPT/HCPCS: 36415; 80053; 83615; 85025; 99214

== ENCOUNTER → 2021-06-16 14:31 | Outpatient (BNVA) | payer MEDICARE, SELFPAY | PROVIDERS: PCP Nurse Practitioner Family; Visit Provider Nurse Practitioner Family | DX: Z00.00 Encounter for general adult medical examination without abnormal findings (principal); C85.80 Other specified types of non-Hodgkin lymphoma, unspecified site; N39.0 Urinary tract infection, site not specified | CPT/HCPCS: 81000; 87086 ==

== ENCOUNTER → 2021-06-17 08:16 | Outpatient (BNVA) | payer MEDICARE, SELFPAY | PROVIDERS: PCP Nurse Practitioner Family; Visit Provider Nurse Practitioner Family | DX: Z00.00 Encounter for general adult medical examination without abnormal findings (principal); C85.80 Other specified types of non-Hodgkin lymphoma, unspecified site | CPT/HCPCS: 80053; 80061; 85025 ==

== ENCOUNTER 2021-08-10 06:02 | Outpatient (RCR) | payer MEDICARE, SELFPAY ==
--- NOTE | 2021-08-10 | US_ITS ---
WS: [id number] Complete ABDOMINAL ULTRASOUND HISTORY: B CELL COMPARISON: 01/19/2021 Liver: 13.8 cm in length. Liver is normal size and echogenicity with no mass or intrahepatic dilatati on. Portal Vein: Normal hepatopetal flow with monophasic waveform. Gallbladder: Normally distended with no gallstones, wall thickening or pericholecystic fluid. Gallbladder wall thickness: 0.2 cm. Pancreas: Normal size and echogenicity. CBD: 0.5 cm. Right kidney: 9.1 cm x 3.9 cm x 3.8 cm. No mass, cortical thickening or hydronephrosis. Left kidney: 9.1 cm x 4.3 cm x 4.0 cm. No mass, cortical thickening or hydronephrosis. Spleen: Spleen is slightly enlarged measuring 12.5 cm in length. Adjacent splenules at the hilum. Spl een is top normal size. Abdominal aorta and IVC are within normal limits. No ascites. US/US abdomen complete* [id number] IMPRESSION: 1. Slightly enlarged spleen measuring 12.5 cm in length. Similar to the prior examination of 01/19/2021. 2. Otherwise negative exam.
== END 2021-08-11 23:59 | disposition home or self-care (01) ==
LOC: RAD 06:02
PROVIDERS: PCP Nurse Practitioner Family; Visit Provider Internal Medicine Hematology & Oncology
DX: C83.07 Small cell B-cell lymphoma, spleen (principal)
CPT/HCPCS: 76700

== ENCOUNTER 2021-08-16 14:30 | Oncology outpatient (recurring) (ONCR) | payer MEDICARE, SELFPAY ==
[2021-08-16 15:42] LABS: Basophils # 0.1 10^3/uL (0.0-0.1); Eosinophils # 0.1 10^3/uL (0.0-0.8); Eosinophils % 1.9 %; Hemoglobin 12.8 g/dL (11.5-15.3); Lymphocytes # 1.7 10^3/uL (0.8-4.8); Lymphocytes % 26.2 %; Mean Corpuscular HGB Conc 34.6 g/dL (30.0-36.0); Mean Corpuscular Hemoglobin 29.1 pg (28.0-34.0); Mean Corpuscular Volume 84.1 fl (81-99); Mean Platelet Volume 11.2 fL (7.4-10.4); Monocytes # 0.5 10^3/uL (0.2-0.9); Monocytes % 8.3 %; Neutrophils # 3.93 10^3/uL (1.8-7.7); Neutrophils % 62.3 %; Nucleated Red Blood Cells % 0 %; Platelet Count 213 10^3/cmm (130-400); White Blood Count 6.3 10^3/uL (4.0-10.0)
[2021-08-16 16:19] LABS: Alanine Aminotransferase 12 U/L (0-33); Alkaline Phosphatase 86 IU/L (35-105); Aspartate Amino Transferase 18 U/L (0-32); Blood Urea Nitrogen 20 mg/dL (8-23); Calcium 9.8 mg/dL (8.5-10.5); Carbon Dioxide 20 mmol/L (22-29); Chloride 100 mmol/L (98-107); Globulin 2.3 g/dL (1.3-4.6); Glucose 80 mg/dL (65-115); Lactate Dehydrogenase 183 U/L (135-214); Osmolality Calculated 286 mOsm/kg (285-295); Sodium 137 mmol/L (136-145); Total Protein 7.3 g/dL (6.6-8.7)
== END 2021-09-11 23:59 | disposition home or self-care (01) ==
PROVIDERS: PCP Nurse Practitioner Family; Visit Provider Internal Medicine Hematology & Oncology
DX: C85.87 Other specified types of non-Hodgkin lymphoma, spleen (principal); R16.1 Splenomegaly, not elsewhere classified; K44.9 Diaphragmatic hernia without obstruction or gangrene; D50.9 Iron deficiency anemia, unspecified; N39.0 Urinary tract infection, site not specified; R61 Generalized hyperhidrosis; Z79.2 Long term (current) use of antibiotics; Z79.899 Other long term (current) drug therapy
CPT/HCPCS: 80053; 83615; 85025; 99214

== ENCOUNTER 2021-10-10 07:24 | Outpatient (CLI) | payer MEDICARE, SELFPAY ==
--- NOTE | 2021-10-10 07:45 | US_ITS ---
WS: [id number] ULTRASOUND ABDOMEN CLINICAL INFORMATION: SPECIAL ATTENTION TO SPLEEN COMPARISON: Ultrasound August 10, 2021 FINDINGS: Liver Size: Normal. Craniocaudal length: 12.9 cm. Echogenicity: Normal. Surface nodularity: None. Mass (size and location): None. Bile ducts Intrahepatic ducts: Normal. Common bile duct diameter: 0.4 cm. Gallbladder Normal. Gallstones: None. Gallbladder sludge: None. Gallbladder wall thickening: None. Pericholecystic fluid: None. Sonographic Rowland sign: Absent. Pancreas Normal as visualized. Spleen Splenomegaly: None. Craniocaudal length: 11.6 cm. Right kidney: Normal. Hydronephrosis: None. Size: 9.0 cm x 4.2 cm x 3.5 cm Left kidney: Normal. Hydronephrosis: None. Size: 9.0 cm x 4.1 cm x 3.8 cm. Abdominal aorta and IVC Visualized portions are normal. Ascites: None. US/US abdomen complete* [id number] IMPRESSION: 1. Spleen measures slightly smaller today 11.5 cm compared to 12.5 cm previous but otherwise unchanged. 2. No other remarkable changes compared to August 10, 2021. 3. Normal liver. 4. No hydronephrosis in either kidney. 5. Normal common bile duct.
== END 2021-10-10 07:25 | disposition home or self-care (01) ==
LOC: RAD 07:24
PROVIDERS: PCP Nurse Practitioner Family; Visit Provider Internal Medicine Hematology & Oncology
DX: R16.1 Splenomegaly, not elsewhere classified (principal)
CPT/HCPCS: 76700

== ENCOUNTER 2021-11-18 09:04 | Oncology outpatient (recurring) (ONCR) | payer MEDICARE, SELFPAY ==
[2021-11-18 09:48] LABS: Basophils # 0.1 10^3/uL (0.0-0.1); Basophils % 1.9 %; Eosinophils # 0.2 10^3/uL (0.0-0.8); Eosinophils % 3.4 %; Hematocrit 37.8 % (37.0-47.0); Hemoglobin 12.3 g/dL (11.5-15.3); Lymphocytes # 1.1 10^3/uL (0.8-4.8); Lymphocytes % 23.9 %; Mean Corpuscular HGB Conc 32.5 g/dL (30.0-36.0); Mean Corpuscular Hemoglobin 28.9 pg (28.0-34.0); Mean Corpuscular Volume 88.9 fl (81-99); Mean Platelet Volume 10.5 fL (7.4-10.4); Monocytes # 0.5 10^3/uL (0.2-0.9); Monocytes % 9.7 %; Neutrophils # 2.83 10^3/uL (1.8-7.7); Neutrophils % 60.9 %; Nucleated Red Blood Cells % 0 %; Platelet Count 226 10^3/cmm (130-400); Red Blood Count 4.25 10^6/uL (4.1-5.3); Red Cell Distribution Width 12.5 % (12.1-15.1); White Blood Count 4.7 10^3/uL (4.0-10.0)
[2021-11-18 10:25] LABS: Alanine Aminotransferase 13 U/L (0-33); Albumin Level 4.9 g/dL (3.5-5.2); Alkaline Phosphatase 84 U/L (35-105); Anion Gap 17.4 (5-19); Aspartate Amino Transferase 18 U/L (0-32); Blood Urea Nitrogen 22 mg/dL (8-23); Calcium 10.2 mg/dL (8.5-10.5); Carbon Dioxide 23 mmol/L (22-29); Chloride 103 mmol/L (98-107); Globulin 2.3 g/dL (1.3-4.6); Glucose 87 mg/dL (65-115); Lactate Dehydrogenase 205 U/L (135-214); Osmolality Calculated 291 mOsm/kg (285-295); Potassium 4.4 mmol/L (3.5-5.1); Sodium 139 mmol/L (136-145); Total Bilirubin 0.9 mg/dL (0.15-1.2); Total Protein 7.2 g/dL (6.6-8.7)
== END 2021-12-12 23:59 | disposition home or self-care (01) ==
PROVIDERS: PCP Nurse Practitioner Family; Visit Provider Internal Medicine Hematology & Oncology
DX: C85.87 Other specified types of non-Hodgkin lymphoma, spleen (principal); D50.9 Iron deficiency anemia, unspecified; Z79.899 Other long term (current) drug therapy
CPT/HCPCS: 36415; 80053; 83615; 85025; 99214

== ENCOUNTER 2022-05-25 09:31 | Oncology outpatient (recurring) (ONCR) | payer MEDICARE, SELFPAY ==
[2022-05-25 10:07] LABS: Basophils # 0.1 10^3/uL (0.0-0.1); Basophils % 1.6 %; Eosinophils # 0.1 10^3/uL (0.0-0.8); Eosinophils % 2.1 %; Hematocrit 36.1 % (37.0-47.0); Hemoglobin 11.6 g/dL (11.5-15.3); Lymphocytes % 22.3 %; Mean Corpuscular HGB Conc 32.1 g/dL (30.0-36.0); Mean Corpuscular Hemoglobin 27.8 pg (28.0-34.0); Mean Corpuscular Volume 86.6 fl (81-99); Mean Platelet Volume 10.5 fL (7.4-10.4); Monocytes # 0.4 10^3/uL (0.2-0.9); Monocytes % 8.7 %; Neutrophils # 2.86 10^3/uL (1.8-7.7); Neutrophils % 65.1 %; Nucleated Red Blood Cells % 0 %; Platelet Count 251 10^3/cmm (130-400); Red Blood Count 4.17 10^6/uL (4.1-5.3); Red Cell Distribution Width 12.9 % (12.1-15.1); White Blood Count 4.4 10^3/uL (4.0-10.0)
[2022-05-25 10:30] LABS: Alanine Aminotransferase 9 U/L (0-33); Albumin Level 4.8 g/dL (3.5-5.2); Alkaline Phosphatase 87 U/L (35-105); Anion Gap 17.8 (5-19); Aspartate Amino Transferase 16 U/L (0-32); Blood Urea Nitrogen 26 mg/dL (8-23); Calcium 9.7 mg/dL (8.5-10.5); Carbon Dioxide 22 mmol/L (22-29); Chloride 107 mmol/L (98-107); Globulin 2.4 g/dL (1.3-4.6); Glucose 80 mg/dL (65-115); Lactate Dehydrogenase 195 U/L (135-214); Osmolality Calculated 298 mOsm/kg (285-295); Potassium 4.8 mmol/L (3.5-5.1); Sodium 142 mmol/L (136-145); Total Bilirubin 0.7 mg/dL (0.15-1.2); Total Protein 7.2 g/dL (6.6-8.7)
== END 2022-06-11 23:59 | disposition home or self-care (01) ==
PROVIDERS: PCP Nurse Practitioner Family; Visit Provider Internal Medicine Hematology & Oncology
DX: Z08 Encounter for follow-up examination after completed treatment for malignant neoplasm (principal); Z85.72 Personal history of non-Hodgkin lymphomas; R53.83 Other fatigue; R06.02 Shortness of breath; Z92.25 Personal history of immunosuppression therapy
CPT/HCPCS: 36415; 80053; 83615; 85025; 99213

== ENCOUNTER 2022-12-29 08:15 | Oncology outpatient (recurring) (ONCR) | payer MEDICARE, SELFPAY ==
[2022-12-29 08:24] VITALS: BP 149/75; PULSE 74; RESP 16; TEMP 36.6; O2SAT 99
[2022-12-29 08:35] LABS: Basophils # 0.1 10^3/uL (0.0-0.1); Basophils % 1.4 %; Eosinophils # 0.1 10^3/uL (0.0-0.8); Hematocrit 37.8 % (36-47); Lymphocytes % 22.7 %; Mean Corpuscular HGB Conc 32.5 g/dL (30-55); Mean Corpuscular Hemoglobin 27.9 pg (27-33); Mean Corpuscular Volume 85.7 fl (85-98); Mean Platelet Volume 10.4 fL (7.4-10.4); Monocytes # 0.4 10^3/uL (0.2-0.9); Monocytes % 8.6 %; Neutrophils # 2.76 10^3/uL (1.8-7.7); Neutrophils % 64.1 %; Nucleated Red Blood Cells % 0 %; Platelet Count 213 10^3/cmm (157-399); Red Blood Count 4.41 10^6/uL (3.85-5.65); Red Cell Distribution Width 12.5 % (12.1-15.1); White Blood Count 4.31 10^3/uL (3.29-11.43)
[2022-12-29 08:56] LABS: Alanine Aminotransferase 11 U/L (0-33); Albumin Level 4.7 g/dL (3.5-5.2); Alkaline Phosphatase 88 U/L (35-105); Anion Gap 15.3 (5-19); Aspartate Amino Transferase 20 U/L (0-32); Blood Urea Nitrogen 22 mg/dL (8-23); Calcium 9.7 mg/dL (8.5-10.5); Carbon Dioxide 23 mmol/L (22-29); Chloride 106 mmol/L (98-107); Globulin 2.4 g/dL (1.3-4.6); Glucose 85 mg/dL (65-115); Lactate Dehydrogenase 195 U/L (135-214); Osmolality Calculated 293 mOsm/kg (285-295); Potassium 4.3 mmol/L (3.5-5.1); Sodium 140 mmol/L (136-145); Total Bilirubin 1.1 mg/dL (0.15-1.2); Total Protein 7.1 g/dL (6.6-8.7)
== END 2023-01-11 23:59 | disposition home or self-care (01) ==
PROVIDERS: Visit Provider Internal Medicine Medical Oncology
DX: C85.87 Other specified types of non-Hodgkin lymphoma, spleen (principal); D50.9 Iron deficiency anemia, unspecified; Z79.899 Other long term (current) drug therapy; R16.1 Splenomegaly, not elsewhere classified; D64.9 Anemia, unspecified; K40.90 Unilateral inguinal hernia, without obstruction or gangrene, not specified as recurrent
CPT/HCPCS: 36415; 80053; 83615; 85025; 99214

== ENCOUNTER 2023-01-09 08:01 | Outpatient (CLI) | payer MEDICARE, SELFPAY ==
--- NOTE | 2023-01-09 08:30 | CT_ITS ---
WS: [id number] CT CHEST, ABDOMEN, AND PELVIS TECHNIQUE: Contrast-enhanced CT of the chest, abdomen, and pelvis with coronal and sagittal reformatt ed images. CLINICAL INFORMATION: night sweats with marginal zone lymphoma COMPARISON: 05/2020 and 09/2019 DLP: 463.[address] scans at [facility] use at least one of these dose optimization techniques: automated e xposure control; mA and/or kV adjustment per patient size (includes targeted exams where dose is matc hed to clinical indication); or iterative reconstruction. CT CHEST: Large esophageal hiatal hernia with partial intrathoracic stomach and air-fluid levels. Lungs are wel l aerated. No acute pulmonary infiltrates. No focal pneumonia or pleural fluid. Normal caliber thorac ic aorta. Aortic calcification. No mediastinal or hilar lymphadenopathy. No axillary lymphadenopathy. 3 mm low-attenuation RIGHT thyroid nodule. Mild thoracic curve. Mild thoracic kyphosis. CT ABDOMEN AND PELVIS: Diffuse fatty infiltration of the liver. A few incidental hepatic cysts. Normal spleen. Normal pancre atic parenchymal enhancement. Celiac and SMA are patent. Mild aortic calcification. Adrenal lands are normal. Normal renal parenchymal enhancement. No hydronephrosis in either kidney. Tiny fat-containing umbilical hernia. Sigmoid constipation. Calcified uterine fibroid. Uterine fibroi d measures 4.5 x 3.8 cm. A few sigmoid diverticuli. No evidence of acute diverticulitis. Disc space n arrowing L1-2 with endplate sclerosis. Slight anterolisthesis L4 on L5. RIGHT inguinal hernia containing nonobstructed loop of small bowel unchanged IMPRESSION: 1. No lymphadenopathy in the chest abdomen or pelvis. 2. Large esophageal hiatal hernia with partial intrathoracic stomach. 3. Diffuse fatty infiltration of the liver with a few incidental hepatic cysts. 4. Spleen size is decreased compared to 2020 measuring 10.7 cm [id number] within normal limits 5. RIGHT inguinal hernia containing nonobstructed loop of small bowel unchanged 6. Calcified uterine fibroid.
[2023-01-09] MEDS: barium sulfate 450 mL Oral Susp PO (09:08)
[2023-01-09] MEDS: iohexol 350 mg/mL 500 mL Btl (per mL) IV (09:23)
== END 2023-01-09 08:02 | disposition home or self-care (01) ==
LOC: RAD 08:01
PROVIDERS: Visit Provider Nurse Practitioner Family
DX: C85.80 Other specified types of non-Hodgkin lymphoma, unspecified site (principal); K40.90 Unilateral inguinal hernia, without obstruction or gangrene, not specified as recurrent; K44.9 Diaphragmatic hernia without obstruction or gangrene; K76.0 Fatty (change of) liver, not elsewhere classified
CPT/HCPCS: 71260; 74177; 99204; Q9967

== ENCOUNTER 2023-02-01 07:46 | Oncology outpatient (recurring) (ONCR) | payer MEDICARE, SELFPAY ==
[2023-02-01 08:00] VITALS: BP 153/72; PULSE 81; RESP 16; TEMP 36.5; O2SAT 100
[2023-02-01 08:11] LABS: Basophils # 0.1 10^3/uL (0.0-0.1); Basophils % 0.9 %; Eosinophils # 0.1 10^3/uL (0.0-0.8); Eosinophils % 1.6 %; Hematocrit 34.9 % (36-47); Lymphocytes % 18.3 %; Mean Corpuscular Volume 84.9 fl (85-98); Mean Platelet Volume 10.5 fL (7.4-10.4); Monocytes # 0.6 10^3/uL (0.2-0.9); Monocytes % 10.1 %; Neutrophils # 3.76 10^3/uL (1.8-7.7); Neutrophils % 68.9 %; Nucleated Red Blood Cells % 0 %; Platelet Count 198 10^3/cmm (157-399); Red Blood Count 4.11 10^6/uL (3.85-5.65); Red Cell Distribution Width 12.7 % (12.1-15.1); White Blood Count 5.46 10^3/uL (3.29-11.43)
[2023-02-01 08:33] LABS: Alanine Aminotransferase 11 U/L (0-33); Albumin Level 4.6 g/dL (3.5-5.2); Alkaline Phosphatase 93 U/L (35-105); Aspartate Amino Transferase 19 U/L (0-32); Blood Urea Nitrogen 17 mg/dL (8-23); Calcium 8.9 mg/dL (8.5-10.5); Carbon Dioxide 22 mmol/L (22-29); Chloride 107 mmol/L (98-107); Globulin 2.1 g/dL (1.3-4.6); Glucose 88 mg/dL (65-115); Lactate Dehydrogenase 230 U/L (135-214); Osmolality Calculated 293 mOsm/kg (285-295); Sodium 141 mmol/L (136-145); Total Bilirubin 1.3 mg/dL (0.15-1.2); Total Protein 6.7 g/dL (6.6-8.7)
[2023-02-01 09:29] LABS: Iron 48 ug/dL (37-145); Percent Saturation 16.7 % (20-50); Total Iron Binding Capacity 286 mcg/dl; Unsaturated Iron Binding 238 ug/dL (112-347)
[2023-02-01 13:30] LABS: Thyroid Stimulating Hormone 6.25 uIU/mL (0.27-4.20); Vitamin B12 434 pg/mL (232-1245)
== END 2023-02-11 23:59 | disposition home or self-care (01) ==
PROVIDERS: Nurse Practitioner Family; Visit Provider Internal Medicine Medical Oncology
DX: C85.87 Other specified types of non-Hodgkin lymphoma, spleen (principal); D50.9 Iron deficiency anemia, unspecified; Z79.899 Other long term (current) drug therapy; R16.1 Splenomegaly, not elsewhere classified; D64.9 Anemia, unspecified; K40.90 Unilateral inguinal hernia, without obstruction or gangrene, not specified as recurrent
CPT/HCPCS: 36415; 80053; 82607; 83540; 83550; 83615; 84443; 85025; 99213

== ENCOUNTER 2023-02-14 08:11 | Day surgery (SDC) | payer MEDICARE, SELFPAY ==
[2023-02-14] VITALS (12 sets, daily range): BP systolic 101–156; BP diastolic 43–83; PULSE 83–112; RESP 16–18; TEMP 36.1–36.5; O2SAT 95–100; BMI 20.2
[2023-02-14] MEDS: sodium chloride 0.9% 1,000 ML 30 ML IV (08:47)
--- NOTE | 2023-02-14 09:55 | ANES.PREANE2 ---
Pre-Anesthetic Assessment Height/Weight: Height 1.57 m Weight 50.349 kg Temp Pulse Resp BP Pulse Ox O2 Del Method 97.7 F 83 18 156/83 99 Room Air 02/14/23 08:30 02/14/23 08:30 02/14/23 08:30 02/14/23 08:30 02/14/23 08:30 02/14/23 08:33 Operation Date: 02/14/23 09:55 Proposed Procedures p [id number] lap possible open bilateral inguinal hernia repair with mesh K40.90(Bilateral) - Jer Uriarte MD Familial anesthetic complications: none Was Beta Abhishek taken within 24 hours: N/A Was Clonidine taken within 24 hours: N/A Last intake: Intake Last Liquid Date 02/13/23 Last Liquid Time 20:30 Last Solid Date 02/13/23 Last Solid Time 20:30 Social No alcohol and No tobacco Exam alert, oriented x 3, clear to auscultation bilaterally and regular rate & rhythm Airway Submandibular: within normal limits Cervical ROM: within normal limits Mallampati: Class II Dentition: full CV/HEM Anemia Metabolic Thyroid Disease Anesthetic Plan ASA status: 2 Anesthesia: General Medications/Allergies Home Medications Medication Instructions Recorded Confirmed Last Taken Type levothyroxine 25 mcg tablet 25 mcg PO DAILY #30 tabs 02/06/23 02/13/23 02/13/23 Rx ferrous sulfate 325 mg (65 mg 325 mg PO DAILY 02/13/23 02/14/23 02/12/23 History iron) tablet (Iron (ferrous sulfate)) Allergies Allergy/AdvReac Type Severity Reaction Status Date / Time cat dander Allergy Severe ADR-Swelling Verified 02/14/23 08:29 of the Eye Iodinated Contrast Media Allergy ALGY-Bliste Verified 02/14/23 08:29 r fragrances Allergy Severe ADR-Swelling Uncoded 02/14/23 08:29 of the Eye Current Medications Generic Name Dose Route Start Last Admin Trade Name Freq PRN Reason Stop Dose Admin Sodium Chloride 1,000 mls @ 30 mls/hr 02/14/23 08:30 02/14/23 08:47 Sodium Chloride 0.9% IV 02/15/23 08:29 30 mls/hr .Q24H MIRTA Administration PFSH Anesthesia Medical History Marginal zone lymphoma History of recurrent urinary tract infection with hematuria Anemia Splenomegaly Surgical History (Updated 02/04/23 @ 13:33 by Melvin Ponce MD) History of bone marrow biopsy (07/15/20) Family History Father CAD (coronary artery disease) Stroke Sister Cancer breast Brother Diabetes Other Hyperlipidemia Denies family history of Clotting disorder Dementia Psychiatric illness Chronic kidney disease (CKD) Suicide Anesthesia complication Bleeding disorder Lung disease Hypertension Social History Smoking and tobacco/nicotine status: never used tobacco/nicotine Alcohol intake: never Substance/Drug Use: never Data Anesthesia Cardiac Studies: No Data to Display
--- NOTE | 2023-02-14 10:24 | W.PM.OPSFHP ---
Same Day Surgery H&P Indication for Procedure/HPI DATE OF PROCEDURE: February 14, 2023 CHIEF COMPLAINT/INDICATIONFOR SURGICAL PROCEDURE: right inguinal hernia PREOP DIAGNOSIS: right inguinal hernia PLANNED PROCEDURE: Operation Date: 02/14/23 09:55 Proposed Procedures p [id number] lap possible open bilateral inguinal hernia repair with mesh K40.90(Bilateral) - Jer Uriarte MD Medications/Allergies* Home Medications Medication Instructions Recorded Confirmed Type ferrous sulfate 325 mg (65 mg 325 mg PO DAILY 02/13/23 02/14/23 History iron) tablet (Iron (ferrous sulfate)) Allergies/Adverse Reactions Allergy/AdvReac Type Severity Reaction Status Date / Time cat dander Allergy Severe ADR-Swelling Verified 02/14/23 08:29 of the Eye Iodinated Contrast Media Allergy ALGY-Bliste Verified 02/14/23 08:29 r fragrances Allergy Severe ADR-Swelling Uncoded 02/14/23 08:29 of the Eye Current Medications: Generic Name Dose Route Start Last Admin Trade Name Freq PRN Reason Stop Dose Admin Sodium Chloride 1,000 mls @ 30 mls/hr 02/14/23 08:30 02/14/23 08:47 Sodium Chloride 0.9% IV 02/15/23 08:29 30 mls/hr .Q24H MIRTA Administration Pertinent History/Comorbid Conditions* Medical History (Updated 12/29/22 @ 10:14 by Pily Salazar APRN) Marginal zone lymphoma History of recurrent urinary tract infection with hematuria Anemia Splenomegaly Surgical History (Updated 02/04/23 @ 13:33 by Melvin Ponce MD) History of bone marrow biopsy (07/15/20) Family History (Updated 08/16/21 @ 16:14 by Tanya Lao LPN) Diabetes Brother CAD (coronary artery disease) Father Hyperlipidemia Cancer Sister breast Stroke Father Denies family history of Clotting disorder Dementia Psychiatric illness Chronic kidney disease (CKD) Suicide Anesthesia complication Bleeding disorder Lung disease Hypertension Social History Smoking and tobacco/nicotine status: never used tobacco/nicotine Alcohol intake: never Substance/Drug Use: never Pertinent Exam Findings alert, oriented x 3, clear to auscultation bilaterally and regular rate & rhythm Recommendations Surgery/Procedure today Coding Level of Care Code Acute Code for Chg Fwd
[2023-02-14] MEDS: ceFAZolin 2,000 MG in sodium chloride 0.9% (plus) 50 ML 100 MG IV (11:11)
[2023-02-14] MEDS: lidocaine-epi 1% PF 1:200,000 30 mL SDV 10 ML INJECTION (11:56)
[2023-02-14] MEDS: BUPivacaine 0.25% INJ 10 mL INJECTION (11:57)
--- NOTE | 2023-02-14 12:46 | P.OP_ITS ---
Operative Report Date of procedure: February 14, 2023 Pre-op diagnosis: Right inguinal hernia Post-op diagnosis: Right inguinal hernia with indirect and direct component, small lipoma on the femoral space on the right Procedure done: Laparoscopic repair of right inguinal hernia Surgeon: Jer Uriarte MD Gang Drill Operator: THU OR Staff Estimated blood loss: 5 Complications: None apparent Brief History: 77-year-old female with history of right inguinal hernia verified by imaging who presented for right inguinal hernia or with mesh. Risk benefits of the procedure were discussed and documented in my preop note. Procedure: Patient was brought into the OR. Placed in the supine position. General esthesia was given and patient intubated. Urinary catheter placed. The abdomen was prepped and draped in the usual sterile fashion. 1.5 cm infraumbilical incision was made, the incision was deepened to the level of the fascia, the anterior rectus sheath was then opened with electrocautery, the rectus muscle was retracted medially revealing the retrorectus space. And a Spacemaker was in serted into the retrorectus space taking care from consideration of following anterior abdominal wall. The following was inflated under direct visualization seen the peritoneum pulled down and epigastric vessels remain on the upper portion of the imaging. The Spacemaker was removed and a 12 mm trocar was placed with balloon, the preperitoneal space was insufflated. Additional 5 mm trocars were placed in the suprapubic and infraumbilical positions under direct visualization. I then proceeded with dissection of the right space of [facility] using blunt dissection, to separate the peritoneum from the anterior abdominal wall. The space was developed laterally. During dissection a small direct inguinal hernia on the right was noted as well as a small lipoma on the femoral space that were reduced. I then placed my attention to the indirect portion of the hernia, the peritoneum was noted to be pulled up to the internal ring, the hernia was completely reduced into the abdomen, there was dense adhesions between the peritoneum and the round ligament and therefore I proceeded to transect the round ligament proximal to the internal ring. After resection was complete hemostasis was verified no evidence of bleeding was noted on the properitoneal space. I then proceeded to place a large right side 3D max mesh in the preperitoneal space, the mesh was placed and the weighted will cover the direct indirect and femoral spaces and extended up to the level of the midline. The mesh was then tacked to the Shine's ligament. Hemostasis was once again verified and there was no evidence of bleeding. The preperitoneal space was desufflated under direct visualization to ensure proper mesh coverage. The trocars were removed. The anterior rectus sheath was closed with a #0 Vicryl in the UR 6 needle. The wounds were closed in layers using #3-0 Vicryl for the subcutaneous tissue and #4 Monocryl for the skin. Dermabond was applied. At the end of the procedure the patient was extubated and transferred to the PACU in stable condition. Patient tolerated well the procedure. At the end of the procedure all counts were correct.
[2023-02-14] MEDS: fentaNYL 50 mcg/mL INJ 2mL IVP ×2 (13:08→13:33)
--- NOTE | 2023-02-14 13:45 | SUR.PHASEII ---
Patient arrived to postop with 8/10 pain, rolling in the bed. Administered IV pain medication approved by Dr Ash. Patient stated she is starting to feel it ease up some. Pt is on monitor, VS within normal limits.
[2023-02-14] MEDS: oxyCODONE 5 mg IR Tab/Cap PO (13:59)
--- NOTE | 2023-02-14 14:07 | SUR.PHASEII ---
Patient stated her pain is starting to come back, pain pill was administered,. Patient is sitting up in bed eating jello.
--- NOTE | 2023-02-14 16:28 | ANE.PACU2 ---
Inpatient post-anesthesia follow up: Airway intact: Yes Vital signs: Temperature 97.2 F Pulse Rate 89 Respiratory Rate 17 Blood Pressure 132/63 Pulse Oximetry 100 Oxygen Delivery Me thod Room Air Oxygen Flow Rate Fraction of Inspir ed Oxygen Hydration adequate: Yes Nausea and vomiting: No Pain level: 3 Mental status: Baseline
== END 2023-02-14 14:40 | disposition home or self-care (01) ==
PROVIDERS: Visit Provider Surgery
PROC: (CPT 49650; principal; 2023-02-14 09:45)
DX: K40.90 Unilateral inguinal hernia, without obstruction or gangrene, not specified as recurrent (principal); D17.79 Benign lipomatous neoplasm of other sites
CPT/HCPCS: 49505; 51702; C1781; J0690; J1100; J2371; J2405; J2704; J2710; J3010; J3490; J7030

== ENCOUNTER 2023-05-03 15:16 | Oncology outpatient (recurring) (ONCR) | payer MEDICARE, SELFPAY ==
[2023-05-03 15:39] LABS: Basophils # 0.1 10^3/uL (0.0-0.1); Eosinophils # 0.1 10^3/uL (0.0-0.8); Eosinophils % 1.7 %; Hematocrit 37.5 % (36-47); Lymphocytes # 0.9 10^3/uL (0.8-4.8); Lymphocytes % 14.3 %; Mean Corpuscular HGB Conc 32.8 g/dL (30-55); Mean Corpuscular Hemoglobin 28.7 pg (27-33); Mean Corpuscular Volume 87.4 fl (85-98); Mean Platelet Volume 10.6 fL (7.4-10.4); Monocytes # 0.5 10^3/uL (0.2-0.9); Neutrophils # 4.44 10^3/uL (1.8-7.7); Nucleated Red Blood Cells % 0 %; Platelet Count 214 10^3/cmm (157-399); Red Blood Count 4.29 10^6/uL (3.85-5.65); Red Cell Distribution Width 12.5 % (12.1-15.1)
[2023-05-03 16:14] LABS: Alanine Aminotransferase 10 U/L (0-33); Albumin Level 4.7 g/dL (3.5-5.2); Alkaline Phosphatase 94 U/L (35-105); Anion Gap 15.9 (5-19); Aspartate Amino Transferase 20 U/L (0-32); Blood Urea Nitrogen 24 mg/dL (8-23); Calcium 9.4 mg/dL (8.5-10.5); Carbon Dioxide 24 mmol/L (22-29); Chloride 105 mmol/L (98-107); Globulin 2.1 g/dL (1.3-4.6); Glucose 114 mg/dL (65-115); Iron 168 ug/dL (37-145); Osmolality Calculated 297 mOsm/kg (285-295); Percent Saturation 59.1 % (20-50); Potassium 3.9 mmol/L (3.5-5.1); Sodium 141 mmol/L (136-145); Thyroid Stimulating Hormone 2.18 uIU/mL (0.27-4.20); Total Bilirubin 1.1 mg/dL (0.15-1.2); Total Iron Binding Capacity 284 mcg/dl; Total Protein 6.8 g/dL (6.6-8.7); Unsaturated Iron Binding 116 ug/dL (112-347)
== END 2023-05-13 23:59 | disposition home or self-care (01) ==
LOC: ONCMED 15:16
PROVIDERS: Visit Provider Internal Medicine Medical Oncology
DX: D50.9 Iron deficiency anemia, unspecified; C85.80 Other specified types of non-Hodgkin lymphoma, unspecified site
CPT/HCPCS: 36415; 80053; 83540; 83550; 84443; 85025

== ENCOUNTER 2023-08-02 14:00 | Oncology outpatient (recurring) (ONCR) | payer MEDICARE, SELFPAY ==
[2023-08-02 14:24] LABS: Basophils # 0.1 10^3/uL (0.0-0.1); Basophils % 1.5 %; Eosinophils # 0.2 10^3/uL (0.0-0.8); Eosinophils % 2.9 %; Hematocrit 35.3 % (36-47); Lymphocytes # 1.2 10^3/uL (0.8-4.8); Lymphocytes % 20.9 %; Mean Corpuscular HGB Conc 33.1 g/dL (30-55); Mean Corpuscular Hemoglobin 28.2 pg (27-33); Mean Corpuscular Volume 85.1 fl (85-98); Mean Platelet Volume 10.9 fL (7.4-10.4); Monocytes # 0.5 10^3/uL (0.2-0.9); Monocytes % 8.9 %; Neutrophils % 65.6 %; Nucleated Red Blood Cells % 0 %; Platelet Count 241 10^3/cmm (157-399); Red Blood Count 4.15 10^6/uL (3.85-5.65); Red Cell Distribution Width 12.3 % (12.1-15.1); White Blood Count 5.94 10^3/uL (3.29-11.43)
[2023-08-02 14:52] LABS: Alanine Aminotransferase 9 U/L (0-33); Albumin Level 4.8 g/dL (3.5-5.2); Alkaline Phosphatase 81 U/L (35-105); Anion Gap 16.7 (5-19); Aspartate Amino Transferase 16 U/L (0-32); Blood Urea Nitrogen 28 mg/dL (8-23); Calcium 9.7 mg/dL (8.5-10.5); Carbon Dioxide 22 mmol/L (22-29); Chloride 109 mmol/L (98-107); Globulin 1.9 g/dL (1.3-4.6); Glucose 88 mg/dL (65-115); Lactate Dehydrogenase 196 U/L (135-214); Osmolality Calculated 301 mOsm/kg (285-295); Potassium 4.7 mmol/L (3.5-5.1); Sodium 143 mmol/L (136-145); Total Bilirubin 0.6 mg/dL (0.15-1.2); Total Protein 6.7 g/dL (6.6-8.7)
== END 2023-08-12 23:59 | disposition home or self-care (01) ==
PROVIDERS: Visit Provider Internal Medicine Medical Oncology
DX: D50.9 Iron deficiency anemia, unspecified (principal); C85.80 Other specified types of non-Hodgkin lymphoma, unspecified site; Z53.9 Procedure and treatment not carried out, unspecified reason
CPT/HCPCS: 36415; 80053; 83615; 85025; 99213

== ENCOUNTER 2023-11-08 14:24 | Oncology outpatient (recurring) (ONCR) | payer MEDICARE, SELFPAY ==
[2023-11-08 14:37] LABS: Basophils # 0.1 10^3/uL (0.0-0.1); Basophils % 1.4 %; Eosinophils # 0.2 10^3/uL (0.0-0.8); Eosinophils % 3.1 %; Hematocrit 35.7 % (36-47); Lymphocytes # 1.1 10^3/uL (0.8-4.8); Lymphocytes % 18.9 %; Mean Corpuscular HGB Conc 33.1 g/dL (30-55); Mean Corpuscular Volume 84.8 fl (85-98); Mean Platelet Volume 11.3 fL (7.4-10.4); Monocytes # 0.6 10^3/uL (0.2-0.9); Monocytes % 10.4 %; Neutrophils # 3.87 10^3/uL (1.8-7.7); Neutrophils % 65.9 %; Nucleated Red Blood Cells % 0 %; Platelet Count 208 10^3/cmm (157-399); Red Blood Count 4.21 10^6/uL (3.85-5.65); Red Cell Distribution Width 12.5 % (12.1-15.1); White Blood Count 5.87 10^3/uL (3.29-11.43)
[2023-11-08 14:59] LABS: Alanine Aminotransferase 15 U/L (0-33); Albumin Level 4.5 g/dL (3.5-5.2); Alkaline Phosphatase 98 U/L (35-105); Anion Gap 18.5 (5-19); Aspartate Amino Transferase 26 U/L (0-32); Blood Urea Nitrogen 26 mg/dL (8-23); Calcium 9.8 mg/dL (8.5-10.5); Carbon Dioxide 22 mmol/L (22-29); Chloride 105 mmol/L (98-107); Globulin 2.3 g/dL (1.3-4.6); Glucose 90 mg/dL (65-115); Lactate Dehydrogenase 210 U/L (135-214); Osmolality Calculated 296 mOsm/kg (285-295); Potassium 4.5 mmol/L (3.5-5.1); Sodium 141 mmol/L (136-145); Total Protein 6.8 g/dL (6.6-8.7)
== END 2023-11-12 23:59 | disposition home or self-care (01) ==
PROVIDERS: Nurse Practitioner; Visit Provider Internal Medicine Medical Oncology
DX: D25.9 Leiomyoma of uterus, unspecified (principal); C85.80 Other specified types of non-Hodgkin lymphoma, unspecified site; D50.9 Iron deficiency anemia, unspecified; Z79.899 Other long term (current) drug therapy
CPT/HCPCS: 36415; 80053; 83615; 85025; 99214

== ENCOUNTER 2024-01-17 13:25 | Oncology outpatient (recurring) (ONCR) | payer MEDICARE, SELFPAY ==
[2024-01-17 14:14] LABS: Basophils # 0.1 10^3/uL (0.0-0.1); Eosinophils # 0.1 10^3/uL (0.0-0.8); Eosinophils % 2.1 %; Hematocrit 38.3 % (36-47); Lymphocytes # 0.9 10^3/uL (0.8-4.8); Lymphocytes % 17.5 %; Mean Corpuscular HGB Conc 32.6 g/dL (30-55); Mean Corpuscular Hemoglobin 27.7 pg (27-33); Mean Corpuscular Volume 84.7 fl (85-98); Mean Platelet Volume 10.7 fL (7.4-10.4); Monocytes # 0.4 10^3/uL (0.2-0.9); Monocytes % 8.2 %; Neutrophils # 3.72 10^3/uL (1.8-7.7); Neutrophils % 70.8 %; Nucleated Red Blood Cells % 0 %; Platelet Count 214 10^3/cmm (157-399); Red Blood Count 4.52 10^6/uL (3.85-5.65); Red Cell Distribution Width 12.4 % (12.1-15.1); White Blood Count 5.25 10^3/uL (3.29-11.43)
[2024-01-17 14:35] LABS: Alanine Aminotransferase 10 U/L (0-33); Albumin Level 4.8 g/dL (3.5-5.2); Alkaline Phosphatase 80 U/L (35-105); Anion Gap 17.9 (5-19); Aspartate Amino Transferase 21 U/L (0-32); Blood Urea Nitrogen 29 mg/dL (8-23); Calcium 9.9 mg/dL (8.5-10.5); Carbon Dioxide 21 mmol/L (22-29); Chloride 105 mmol/L (98-107); Ferritin 78 ng/mL (15-150); Globulin 2.3 g/dL (1.3-4.6); Glucose 81 mg/dL (65-115); Iron 49 ug/dL (37-145); Lactate Dehydrogenase 201 U/L (135-214); Osmolality Calculated 293 mOsm/kg (285-295); Percent Saturation 16.6 % (20-50); Potassium 4.9 mmol/L (3.5-5.1); Sodium 139 mmol/L (136-145); Total Bilirubin 0.8 mg/dL (0.15-1.2); Total Iron Binding Capacity 294 mcg/dl; Total Protein 7.1 g/dL (6.6-8.7); Unsaturated Iron Binding 245 ug/dL (112-347)
== END 2024-02-12 23:59 | disposition home or self-care (01) ==
PROVIDERS: Nurse Practitioner; Visit Provider Internal Medicine Medical Oncology
DX: R16.1 Splenomegaly, not elsewhere classified; D64.9 Anemia, unspecified; R06.02 Shortness of breath; D25.9 Leiomyoma of uterus, unspecified; Z08 Encounter for follow-up examination after completed treatment for malignant neoplasm; Z85.72 Personal history of non-Hodgkin lymphomas; K76.0 Fatty (change of) liver, not elsewhere classified; E04.1 Nontoxic single thyroid nodule; Z92.25 Personal history of immunosuppression therapy
CPT/HCPCS: 36415; 80053; 82728; 83540; 83550; 83615; 85025; 99214

== ENCOUNTER → 2024-02-14 10:48 | Outpatient (BNVA) | payer MEDICARE, SELFPAY | PROVIDERS: Visit Provider Nurse Practitioner Family | DX: L81.4 Other melanin hyperpigmentation (principal); L82.1 Other seborrheic keratosis; Z08 Encounter for follow-up examination after completed treatment for malignant neoplasm; Z85.828 Personal history of other malignant neoplasm of skin; D48.5 Neoplasm of uncertain behavior of skin; L57.0 Actinic keratosis | CPT/HCPCS: 11102; 17000; 99203 ==

== ENCOUNTER → 2024-03-06 11:00 | Outpatient (BNVA) | payer MEDICARE, SELFPAY | PROVIDERS: Visit Provider Dermatology | DX: D04.5 Carcinoma in situ of skin of trunk (principal); C44.712 Basal cell carcinoma of skin of right lower limb, including hip | CPT/HCPCS: 17262; 99214 ==

== ENCOUNTER 2024-04-16 13:16 | Oncology outpatient (recurring) (ONCR) | payer MEDICARE, SELFPAY ==
[2024-04-16 13:53] LABS: Basophils # 0.1 10^3/uL (0.0-0.1); Basophils % 1.2 %; Eosinophils # 0.1 10^3/uL (0.0-0.8); Eosinophils % 2.4 %; Hematocrit 35.5 % (36-47); Lymphocytes % 20.1 %; Mean Corpuscular HGB Conc 32.7 g/dL (30-55); Mean Corpuscular Hemoglobin 27.8 pg (27-33); Mean Corpuscular Volume 84.9 fl (85-98); Mean Platelet Volume 10.7 fL (7.4-10.4); Monocytes # 0.5 10^3/uL (0.2-0.9); Monocytes % 9.4 %; Neutrophils # 3.39 10^3/uL (1.8-7.7); Neutrophils % 66.7 %; Nucleated Red Blood Cells % 0 %; Platelet Count 213 10^3/cmm (157-399); Red Blood Count 4.18 10^6/uL (3.85-5.65); Red Cell Distribution Width 12.5 % (12.1-15.1); White Blood Count 5.08 10^3/uL (3.29-11.43)
[2024-04-16 14:10] LABS: Alanine Aminotransferase 10 U/L (0-33); Albumin Level 4.5 g/dL (3.5-5.2); Alkaline Phosphatase 84 U/L (35-105); Anion Gap 16.3 (5-19); Aspartate Amino Transferase 19 U/L (0-32); Blood Urea Nitrogen 21 mg/dL (8-23); Calcium 9.4 mg/dL (8.5-10.5); Carbon Dioxide 21 mmol/L (22-29); Chloride 105 mmol/L (98-107); Ferritin 62 ng/mL (15-150); Globulin 1.8 g/dL (1.3-4.6); Glucose 81 mg/dL (65-115); Iron 54 ug/dL (37-145); Lactate Dehydrogenase 193 U/L (135-214); Osmolality Calculated 288 mOsm/kg (285-295); Percent Saturation 19.5 % (20-50); Potassium 4.3 mmol/L (3.5-5.1); Sodium 138 mmol/L (136-145); Total Bilirubin 0.7 mg/dL (0.15-1.2); Total Iron Binding Capacity 276 mcg/dl; Total Protein 6.3 g/dL (6.6-8.7); Unsaturated Iron Binding 222 ug/dL (112-347)
== END 2024-05-12 23:59 | disposition home or self-care (01) ==
PROVIDERS: Nurse Practitioner; Visit Provider Internal Medicine Medical Oncology
DX: C85.80 Other specified types of non-Hodgkin lymphoma, unspecified site (principal); D64.9 Anemia, unspecified; D25.9 Leiomyoma of uterus, unspecified
CPT/HCPCS: 36415; 80053; 82728; 83540; 83550; 83615; 85025

== ENCOUNTER → 2024-05-20 11:16 | Outpatient (BNVA) | payer MEDICARE, SELFPAY | PROVIDERS: Visit Provider Nurse Practitioner Family | DX: L81.4 Other melanin hyperpigmentation (principal); L57.8 Other skin changes due to chronic exposure to nonionizing radiation; X32.XXXA Exposure to sunlight, initial encounter; L82.1 Other seborrheic keratosis; Z08 Encounter for follow-up examination after completed treatment for malignant neoplasm; Z85.828 Personal history of other malignant neoplasm of skin; Z09 Encounter for follow-up examination after completed treatment for conditions other than malignant neoplasm; Z87.2 Personal history of diseases of the skin and subcutaneous tissue; L57.0 Actinic keratosis | CPT/HCPCS: 17000; 99213 ==

== ENCOUNTER → 2024-07-14 10:08 | Outpatient (BNVA) | payer MEDICARE, SELFPAY | PROVIDERS: Visit Provider Nurse Practitioner Family | DX: L30.9 Dermatitis, unspecified (principal); L82.1 Other seborrheic keratosis; L81.4 Other melanin hyperpigmentation; L57.8 Other skin changes due to chronic exposure to nonionizing radiation; X32.XXXA Exposure to sunlight, initial encounter; Z08 Encounter for follow-up examination after completed treatment for malignant neoplasm; Z85.828 Personal history of other malignant neoplasm of skin | CPT/HCPCS: 99213 ==

== ENCOUNTER 2024-07-21 14:08 | Oncology outpatient (recurring) (ONCR) | payer MEDICARE, SELFPAY ==
[2024-07-21 14:23] LABS: Basophils # 0.1 10^3/uL (0.0-0.1); Basophils % 1.3 %; Eosinophils # 0.2 10^3/uL (0.0-0.8); Eosinophils % 3.1 %; Lymphocytes % 17.7 %; Mean Corpuscular HGB Conc 33.6 g/dL (30-55); Mean Corpuscular Hemoglobin 28.6 pg (27-33); Mean Corpuscular Volume 85.1 fl (85-98); Mean Platelet Volume 10.6 fL (7.4-10.4); Monocytes # 0.4 10^3/uL (0.2-0.9); Monocytes % 7.1 %; Neutrophils # 3.86 10^3/uL (1.8-7.7); Neutrophils % 70.6 %; Nucleated Red Blood Cells % 0 %; Platelet Count 224 10^3/cmm (157-399); Red Blood Count 4.23 10^6/uL (3.85-5.65); Red Cell Distribution Width 12.6 % (12.1-15.1); White Blood Count 5.47 10^3/uL (3.29-11.43)
[2024-07-21 14:41] LABS: Albumin Level 4.7 g/dL (3.5-5.2); Alkaline Phosphatase 87 U/L (35-105); Anion Gap 19.4 (5-19); Aspartate Amino Transferase 18 U/L (0-32); Blood Urea Nitrogen 22 mg/dL (8-23); Calcium 9.4 mg/dL (8.5-10.5); Carbon Dioxide 20 mmol/L (22-29); Chloride 107 mmol/L (98-107); Ferritin 59 ng/mL (15-150); Globulin 2.1 g/dL (1.3-4.6); Glucose 122 mg/dL (65-115); Iron 66 ug/dL (37-145); Lactate Dehydrogenase 352 U/L (135-214); Osmolality Calculated 299 mOsm/kg (285-295); Percent Saturation 22.3 % (20-50); Potassium 4.4 mmol/L (3.5-5.1); Sodium 142 mmol/L (136-145); Total Bilirubin 0.9 mg/dL (0.15-1.2); Total Iron Binding Capacity 295 mcg/dl; Total Protein 6.8 g/dL (6.6-8.7); Unsaturated Iron Binding 229 ug/dL (112-347)
[2024-07-21 14:51] LABS: Alanine Aminotransferase 13 U/L (0-33)
== END 2024-08-11 23:59 | disposition home or self-care (01) ==
PROVIDERS: Nurse Practitioner; Visit Provider Internal Medicine Medical Oncology
DX: Z08 Encounter for follow-up examination after completed treatment for malignant neoplasm (principal); Z85.72 Personal history of non-Hodgkin lymphomas; Z92.25 Personal history of immunosuppression therapy; D64.9 Anemia, unspecified; D25.9 Leiomyoma of uterus, unspecified
CPT/HCPCS: 36415; 80053; 82728; 83540; 83550; 83615; 85025; 99214

== ENCOUNTER → 2024-09-15 10:18 | Outpatient (BNVA) | payer MEDICARE, SELFPAY | PROVIDERS: Visit Provider Nurse Practitioner Family | DX: L82.1 Other seborrheic keratosis (principal); L81.4 Other melanin hyperpigmentation; L57.8 Other skin changes due to chronic exposure to nonionizing radiation; X32.XXXA Exposure to sunlight, initial encounter; Z08 Encounter for follow-up examination after completed treatment for malignant neoplasm; Z85.828 Personal history of other malignant neoplasm of skin; D48.5 Neoplasm of uncertain behavior of skin | CPT/HCPCS: 11102; 99213 ==

== ENCOUNTER 2025-01-13 11:46 | Oncology outpatient (recurring) (ONCR) | payer MEDICARE, SELFPAY ==
[2025-01-13 12:22] LABS: Hematocrit 35.1 % (36-47); Hemoglobin 11.50 g/dL (11.27-16.99); Mean Corpuscular HGB Conc 32.8 g/dL (30-55); Mean Corpuscular Hemoglobin 27.8 pg (27-33); Mean Corpuscular Volume 85.0 fl (85-98); Nucleated Red Blood Cells % 0 %; Platelet Count 202 10^3/cmm (157-399); Red Blood Count 4.13 10^6/uL (3.85-5.65); White Blood Count 5.21 10^3/uL (3.29-11.43)
[2025-01-13 12:44] LABS: Alanine Aminotransferase 11 U/L (0-33); Albumin Level 4.7 g/dL (3.5-5.2); Alkaline Phosphatase 77 U/L (35-105); Anion Gap 17.1 (5-19); Aspartate Amino Transferase 21 U/L (0-32); Blood Urea Nitrogen 25 mg/dL (8-23); Calcium 9.6 mg/dL (8.5-10.5); Carbon Dioxide 23 mmol/L (22-29); Chloride 104 mmol/L (98-107); Globulin 1.9 g/dL (1.3-4.6); Glucose 82 mg/dL (65-115); Osmolality Calculated 293 mOsm/kg (285-295); Potassium 4.1 mmol/L (3.5-5.1); Sodium 140 mmol/L (136-145); Total Protein 6.6 g/dL (6.6-8.7)
== END 2025-02-11 23:59 | disposition home or self-care (01) ==
PROVIDERS: Internal Medicine Medical Oncology; Visit Provider Nurse Practitioner
DX: Z08 Encounter for follow-up examination after completed treatment for malignant neoplasm (principal); Z85.72 Personal history of non-Hodgkin lymphomas; R03.0 Elevated blood-pressure reading, without diagnosis of hypertension; D50.9 Iron deficiency anemia, unspecified; C44.91 Basal cell carcinoma of skin, unspecified
CPT/HCPCS: 36415; 80053; 83615; 85025; 99214

== ENCOUNTER → 2025-01-20 09:01 | Outpatient (BNVA) | payer MEDICARE, SELFPAY | DX: C85.80 Other specified types of non-Hodgkin lymphoma, unspecified site (principal); E78.5 Hyperlipidemia, unspecified | CPT/HCPCS: 80053; 80061; 83615; 85025 ==